=== PATIENT | male | born 1940 | race Caucasian/White ===

== ENCOUNTER 2018-05-28 12:27 | Outpatient (REF) | payer MEDICARE, SELFPAY ==
--- NOTE | 2018-05-28 10:00 | SKI_PTH ---
PATIENT: Star Schumacher V LOC: [facility] U#:[id number] AGE/SX: 77/M ROOM: RE05/28/[address]: Clarissa Luther : 1940 BED: DIS: 05/28/2018 SPEC #: [id number] RECD: 05/29/18 12:40 STATUS: RHIANNON REHank #: [id number] JEANETTE: 05/28/18 10:[address]: Clarissa Luther DEPT: Surgical Specimen RECD BY: Sade Calderon Tissues: 1 - SKIN BIOPSY(SHAVE/PUNCH) Procedures: SKIN LEVEL 4 Comments: [id number]
== END 2018-05-28 12:47 ==
LOC: NCHCN 12:27
PROVIDERS: PCP Family Medicine; Visit Provider Family Medicine
DX: D22.5 Melanocytic nevi of trunk (principal)
CPT/HCPCS: 88305

== ENCOUNTER 2019-05-13 11:45 | Outpatient (REF) | payer MEDICARE, SELFPAY ==
[2019-05-13 22:20] LABS: Anion Gap 9.1 mmol/L (3-11); BUN 38 mg/dL (7-18); CO2 27.9 mmol/L (21.0-32.0); CREATININE 1.82 mg/dL (0.70-1.30); Calcium 9.1 mg/dL (8.5-10.1); Calculated LDL 83 mg/dL; Chloride 107 mmol/L (98-107); Cholesterol 163 mg/dL (<200); Glucose 82 mg/dL (74-106); HDL Cholesterol 67 mg/dL (40-60); Potassium 4.6 mmol/L (3.5-5.1); Sodium 144 mmol/L (136-145); TSH (W/Ref FT4) 1.98 uIU/mL (0.36-3.74); Triglyceride 66 mg/dL (<150)
== END 2019-05-13 12:05 ==
LOC: NCHCN 11:45
PROVIDERS: PCP Family Medicine; Visit Provider Family Medicine
DX: I10 Essential (primary) hypertension (principal); N18.9 Chronic kidney disease, unspecified
CPT/HCPCS: 80048; 80061; 84443

== ENCOUNTER 2020-02-09 18:10 | Outpatient (REF) | payer MEDICARE, SELFPAY ==
[2020-02-09 22:34] LABS: BUN 31 mg/dL (7-18); CREATININE 1.82 mg/dL (0.70-1.30)
[2020-02-10 18:09] LABS: PSA, Screening 1.7 ng/mL (0.0-6.5)
== END 2020-02-09 18:30 ==
LOC: NCHCN 18:10
PROVIDERS: PCP Family Medicine; Visit Provider Family Medicine
DX: N28.89 Other specified disorders of kidney and ureter (principal); N21.8 Other lower urinary tract calculus; N18.9 Chronic kidney disease, unspecified; Z12.5 Encounter for screening for malignant neoplasm of prostate
CPT/HCPCS: 84153; 84520; 82565

== ENCOUNTER 2022-03-15 15:43 | Outpatient (REF) | payer MEDICARE, SELFPAY ==
[2022-03-15 20:55] LABS: HCT 42.2 % (40.0-50.0); HGB 14.2 g/dL (13.5-17.5); MCH 29.4 pg (27.0-33.0); MCHC 33.6 % (32.0-36.0); MCV 87 fL (80-95); MPV 10.4 fL (8.0-11.0); Platelet Count 218 10^3/uL (130-400); RBC 4.83 10^6/uL (4.36-5.78); RDW 14.3 % (11.8-14.1); RDW-SD 45.6 fL; WBC 5.88 10^3/uL (4.4-10.8)
[2022-03-15 21:14] LABS: COMMENT (LAB VIEW ONLY) 128.97 mg/dL; Microalb ug/mg Crea 11.3 ug/mg Cr
[2022-03-15 21:16] LABS: Anion Gap 6.6 mmol/L (3-11); BUN 36 mg/dL (7-18); CO2 28.4 mmol/L (21.0-32.0); CREATININE 1.9 mg/dL (0.70-1.30); Calcium 8.8 mg/dL (8.5-10.1); Chloride 107 mmol/L (98-107); Estimated GFR 35.44 (mL/min/1.73m2); Glucose 101 mg/dL (74-106); Potassium 4.9 mmol/L (3.5-5.1); Sodium 142 mmol/L (136-145)
== END 2022-03-15 15:44 | disposition home or self-care (01) ==
LOC: NCHCN 15:43
PROVIDERS: PCP Family Medicine; Visit Provider Family Medicine
DX: Z00.8 Encounter for other general examination (principal); I12.9 Hypertensive chronic kidney disease with stage 1 through stage 4 chronic kidney disease, or unspecified chronic kidney disease; N18.9 Chronic kidney disease, unspecified
CPT/HCPCS: 80048; 85027; 82043; 82570

== ENCOUNTER 2022-06-23 11:12 | Outpatient (REF) | payer MEDICARE, SELFPAY ==
[2022-06-23 22:42] LABS: PSA, Screening 2.9 ng/mL (<=6.5)
== END 2022-06-23 11:13 | disposition home or self-care (01) ==
LOC: NCHCN 11:12
PROVIDERS: PCP Family Medicine; Visit Provider Family Medicine
DX: Z85.46 Personal history of malignant neoplasm of prostate (principal); Z12.5 Encounter for screening for malignant neoplasm of prostate
CPT/HCPCS: 84153

== ENCOUNTER 2023-02-22 16:13 | Outpatient (REF) | payer MEDICARE, SELFPAY ==
[2023-02-23 19:32] LABS: PSA, Diagnostic 4.6 ng/mL (<=6.5)
== END 2023-02-22 16:14 | disposition home or self-care (01) ==
LOC: LBN 16:13
PROVIDERS: PCP Family Medicine; Visit Provider Urology
DX: C61 Malignant neoplasm of prostate (principal)
CPT/HCPCS: 84153

== ENCOUNTER 2023-07-02 13:57 | Outpatient (REF) | payer MEDICARE, SELFPAY ==
[2023-07-02 22:18] LABS: Anion Gap 7.3 mmol/L (3-11); BUN 47 mg/dL (7-18); CO2 28.7 mmol/L (21.0-32.0); CREATININE 2.1 mg/dL (0.70-1.30); Calcium 9.5 mg/dL (8.5-10.1); Chloride 105 mmol/L (98-107); Estimated GFR 31.23 (mL/min/1.73m2); Glucose 82 mg/dL (74-106); Sodium 141 mmol/L (136-145)
[2023-07-02 22:33] LABS: COMMENT (LAB VIEW ONLY) 63.25 mg/dL; Microalb ug/mg Crea 12.8 ug/mg Cr
== END 2023-07-02 13:58 | disposition home or self-care (01) ==
LOC: NCHCN 13:57
PROVIDERS: PCP Family Medicine; Visit Provider Family Medicine
DX: N18.9 Chronic kidney disease, unspecified (principal)
CPT/HCPCS: 80048; 82043; 82570

== ENCOUNTER 2023-11-12 13:08 | Outpatient (REF) | payer MEDICARE, SELFPAY ==
[2023-11-13 23:34] LABS: PSA, Diagnostic 6.1 ng/mL (<=6.5)
== END 2023-11-12 13:09 | disposition home or self-care (01) ==
LOC: LBN 13:08
PROVIDERS: PCP Family Medicine; Visit Provider Urology
DX: C61 Malignant neoplasm of prostate (principal)
CPT/HCPCS: 84153

== ENCOUNTER 2024-03-05 15:18 | Outpatient (REF) | payer MEDICARE, SELFPAY ==
--- OUTSIDE RECORDS SUMMARY | 2024-03-05 15:21 | XMS_ITS ---
Author Organization Unknown Address [address] [place] [address] [phone] Phone Care Team Providers Care Fraud Representative Name Role Phone BERLIN DUY Jyoti Attending Unavailable Social History Type Status Start Date End Date Code Code Syst em Smoking History Former smoker [id number] SNOMED CT Sex Male Hospital Discharge Instructions Should you have any questions prior to discharge, please contact a member of your healthcare team. If you have left the hospital and have any questions, please contact your primary care physician. Reason For Referral No Data Found Allergies and Adverse Reactions Allergy Substance Reaction Severity Start Date Concern Status Co de Code System No Known Allergies Moderate Active Plan of Treatment Exposure 12/28/2020 Symptoms 06/30/2020 Encounters Encounter Diagnosis Start Date Code Code Sys tem Encounter for other specified aftercare 09/06/2021 SNOMED-CT Personal Care Team Section Performer Name Performer Role Active Date Inactive Da te
--- OUTSIDE RECORDS SUMMARY | 2024-03-05 15:21 | XMS_ITS ---
Author Organization Unknown Address [address] [place] [address] [phone] Phone Care Team Providers Care Linux Server Administrator Name Role Phone BERLIN DUY Jyoti Attending Unavailable Social History Type Status Start Date End Date Code Code Syst em Smoking History Former smoker [id number] SNOMED CT Sex Male Hospital Discharge Instructions [...] Sys tem Encounter for other specified aftercare 11/01/2021 SNOMED-CT Personal Care Team Section Performer Name Performer Role Active Date Inactive Da te
--- OUTSIDE RECORDS SUMMARY | 2024-03-05 15:21 | XMS_ITS ---
Author Organization Unknown Address [address] [place] [address] [phone] Phone Care Team Providers Care Staff Occupational Therapist Name Role Phone BERLIN DUY Jyoti Attending Unavailable Social History Type Status Start Date End Date Code Code Syst em Smoking History Former smoker [id number] SNOMED CT Sex Male Hospital Discharge Instructions [...] Sys tem Encounter for other specified aftercare 01/24/2022 SNOMED-CT Personal Care Team Section Performer Name Performer Role Active Date Inactive Da te
--- OUTSIDE RECORDS SUMMARY | 2024-03-05 15:22 | XMS_ITS ---
Author Organization Unknown Address [address] [place] [address] [phone] Phone Care Team Providers Care Pin Chaser Name Role Phone BERLIN DUY Jyoti Attending Unavailable Social History Type Status Start Date End Date Code Code Syst em Smoking History Former smoker [id number] SNOMED CT Sex Male Hospital Discharge Instructions [...] Sys tem Encounter for other specified aftercare 08/22/2022 SNOMED-CT Personal Care Team Section Performer Name Performer Role Active Date Inactive Da te
--- OUTSIDE RECORDS SUMMARY | 2024-03-05 15:22 | XMS_ITS ---
Author Organization Unknown Address [address] [place] [address] [phone] Phone Care Team Providers Care Chicken Boner Name Role Phone BERLIN DUY Jyoti Attending Unavailable Social History Type Status Start Date End Date Code Code Syst em Smoking History Former smoker 9459713 SNOMED CT Sex Male Hospital Discharge Instructions [...] Sys tem Encounter for other specified aftercare 05/23/2022 SNOMED-CT Personal Care Team Section Performer Name Performer Role Active Date Inactive Da te
--- OUTSIDE RECORDS SUMMARY | 2024-03-05 15:22 | XMS_ITS ---
Author Organization Unknown Address [address] [place] [address] [phone] Phone Care Team Providers Care Armhole Baster Hand Name Role Phone BERLIN DUY Jyoti Attending Unavailable Social History Type Status Start Date End Date Code Code Syst em Smoking History Former smoker 1433038 SNOMED CT Sex Male Hospital Discharge Instructions [...] Sys tem Encounter for other specified aftercare 02/20/2023 SNOMED-CT Personal Care Team Section Performer Name Performer Role Active Date Inactive Da te
--- OUTSIDE RECORDS SUMMARY | 2024-03-05 15:22 | XMS_ITS ---
Author Organization Unknown Address [address] [place] [address] [phone] Phone Care Team Providers Care Brake Specialist Name Role Phone BERLIN DUY Jyoti Attending Unavailable Social History Type Status Start Date End Date Code Code Syst em Smoking History Former smoker 1806311 SNOMED CT Sex Male Hospital Discharge Instructions [...] Sys tem Encounter for other specified aftercare 11/21/2022 SNOMED-CT Personal Care Team Section Performer Name Performer Role Active Date Inactive Da te
--- OUTSIDE RECORDS SUMMARY | 2024-03-05 15:23 | XMS_ITS ---
Author Organization Unknown Address [address] [place] [address] [phone] Phone Care Team Providers Care Community Cultural Development Officer Name Role Phone BERLIN DUY Jyoti Attending Unavailable Social History Type Status Start Date End Date Code Code Syst em Smoking History Former smoker 5799758 SNOMED CT Sex Male Hospital Discharge Instructions [...] Sys tem Encounter for other specified aftercare 06/07/2023 SNOMED-CT Personal Care Team Section Performer Name Performer Role Active Date Inactive Da te
--- OUTSIDE RECORDS SUMMARY | 2024-03-05 15:23 | XMS_ITS ---
Author Organization Unknown Address [address] [place] [address] [phone] Phone Care Team Providers Care Baseball Club Manager Name Role Phone BERLIN DUY Jyoti Attending Unavailable Social History Type Status Start Date End Date Code Code Syst em Smoking History Former smoker 7922719 SNOMED CT Sex Male Hospital Discharge Instructions [...] Diagnosis Start Date Code Code Sys tem 09/06/2023 [id number] SNOMED-CT Personal Care Team Section Performer Name Performer Role Active Date Inactive Da te
--- OUTSIDE RECORDS SUMMARY | 2024-03-05 15:23 | XMS_ITS ---
Author Organization Unknown Address [address] [place] [address] [phone] Phone Care Team Providers Care Freight Agent Name Role Phone BERLIN DUY Jyoti Attending Unavailable Social History Type Status Start Date End Date Code Code Syst em Smoking History Former smoker 5678919 SNOMED CT Sex Male Hospital Discharge Instructions [...] Sys tem Encounter for other specified aftercare 02/19/2024 SNOMED-CT Personal Care Team Section Performer Name Performer Role Active Date Inactive Da te
--- OUTSIDE RECORDS SUMMARY | 2024-03-05 15:23 | XMS_ITS ---
Author Organization Unknown Address [address] [place] [address] [phone] Phone Care Team Providers Care Flat Optical Element Maker Name Role Phone BERLIN DUY Jyoti Attending Unavailable Social History Type Status Start Date End Date Code Code Syst em Smoking History Former smoker 5627450 SNOMED CT Sex Male Hospital Discharge Instructions [...] Sys tem Encounter for other specified aftercare 11/29/2023 SNOMED-CT Personal Care Team Section Performer Name Performer Role Active Date Inactive Da te
--- OUTSIDE RECORDS SUMMARY | 2024-03-05 15:24 | XMS_ITS | Encounter Summary ---
Author Organization [facility] Address [address] [place] [address] Care Team Providers Care Vending Machine Repairer Name Role Phone Clarissa Luther MD Primary Care Provider [phone] Reason for Visit * Reason Comments Follow-up Encounter Details Date Type Department Care Team (Late st Contact Info) Description 08/03/2022 11:15 EDT Telemedicine [facility] Urology - [address] [address] Terry Martinez MD [address] [place] [address], [address] [place] [address] Prostate cancer ([facility]) (Primary Dx) Social History Tobacco Use Types Packs/Day Years Used Date Smoking Tobacco: Former Cigarettes 1 12 0 01/08/1963 - 01/08/1975 Smokeless Tobacco: Never Alcohol Use Standard Drinks/Week Comments Yes 0 (1 standard drink = 0.6 oz pur e alcohol) 2 Interpersonal Safety Answer Date Record ed Physically Hurt Never 12/07/2019 Verbally Threaten Not on file 12/07/2019 Sex and Gender Information Value Date Recorded Sex Assigned at Not on file Gender Identity Male 04/20/2020 13:39 EST Sexual Orientation Not on file documented as of this encounter Functional Status Functional Status Response Date of Assess ment Because of a physical, menta l, or emotional condition, does this person have difficulty doing errands alone such as visiting a doctor's office or shopping? No 12/18/2019 Cognitive Status Response Date of Assessm ent Because of a physical, menta l, or emotional condition, does this person have serious difficulty concentrating, remembering, or making decisions? No 12/18/2019 documented as of this encounter Progress Notes * Terry Martinez MD - 08/03/2022 1115 EDT Clarissa Luther TELEPHONE ENCOUNTER CC: Prostate cancer - 2007 - brachytherapy monotherapy - intermittent risk - PSA recurrent / right renal mass Mega Last seen 04/2022 HPI: Original w/u renal failure Some heartburn...w/u ongoing 04/2022 - renal U/S - stable right central renal mass 04/2021 - non-contrast CT - stable right renal mass 04/2020 - MR abdo - right Bosniak 4 renal cyst - 2.8 cm solid component smaller - stable /// anxiety 11/2019 - CT abdo - 3.3 cm very central right renal mass associated with very very large renal cyst / left LP Bosniak 2F cyst Min lower urinary tract symptoms (LUTS) - no I Q of L No BPH meds Nocturia x 2 Prior PVR = 0 cc's / last = 947 cc's PSA = 2.9 / last = 3.4 / prior = 2.6 / prior = 2.7 / 2.1 / 1.7 / 0.2 - 11/2011 Creatinine = 2.0 - stable No new bone pains No gross hematuria No constitutional Longstanding ED - failed PDE5's - not S/A No other complaints ROS: ten systems reviewed - no active complaints o/w - all negative PMHx / FHx / social: nonsm / no FHx M / 0 + 6 mikal HTN asthma P/E: GEN:ao x 3 LUNGS: nl eff ABDOMEN: soft No nodes No edema IMP: Prostate cancer - prior BETH to 2011 - now PSA recurrent - stable / minimal Prior history urinary retention Stable small right central mass Stable LUTS - nocturia Stable CKD Stable ED - not S/A PLAN: PSA in 6 months - televisit after - again possible bone scan in F/U Next renal U/S after 04/2023 Prior discussion regarding anatomy and complexity - risk of right radical nephrectomy very possible- in light of CKD - active surveillance again favored This visit was conducted by telephone. I spent a total of 7 minutes in discussion with the patient as described in the progress note. The concept of ???Telemedicine?? has been described to the patient.? Patient has been informed of the anticipated benefits and possible risks.? Patient understands the information provided regardingtelemedicine, has had the opportunity to ask questions about this information, and all questions have been answered to patient???s satisfaction. Patient consents for the use of telemedicine in his/her medical care and authorizes the transmission of any relevant medical information to providers and their staff involved in patient???s medical or mental health care. Patient understands that they maybe responsible for copays, deductible or coinsurance for this service. documented in this encounter Plan of Treatment Upcoming Encounters Date Type Department Care Team (Late st Contact Info) Description 03/24/2024 9:30 EST Appointment [facility] Endoscopy [address] [place] [address] Eleazar Ladd MD [address] [place] [address] [address] [place] [phone] 06/11/2024 11:30 EST Ancillary Procedure [facility] [id number] 06/11/2024 12:00 EST Office Visit [address] [address] Terry Martinez MD [address] [facility], [address] [place] [phone] documented as of this encounter Visit Diagnoses Diagnosis Prostate cancer (HCC-CMS)- Primary Malignant neoplasm of prostate documented in this encounter Care Teams Vending Machine Repairer Relationship Specialty Start Date End Date Clarissa Luther MD [address] [place] [phone] PCP - General 08/27/08 documented as of this encounter
--- OUTSIDE RECORDS SUMMARY | 2024-03-05 15:24 | XMS_ITS | Encounter Summary ---
Author Organization [facility] Address [address] [place] [address] Care Team Providers Care Motorcycle Racer Name Role Phone Clarissa Luther MD Primary Care Provider [phone] Reason for Visit * Reason Onset Date Comments Appointment Related 08/03/2022 Encounter Details Date Type Department Care Team (Late st Contact Info) Description 08/03/2022 Telephone [facility] Urology - [address] [address] Terry Martinez MD [address] [place] [address], [address] [place] [phone] Appointment Related Social History Tobacco Use Types Packs/Day Years [...] No 12/18/2019 documented as of this encounter Miscellaneous Notes * Telephone Encounter - Fatuma Urias - 08/03/2022 1620 EDT Spoke with pt's , scheduled 6 mo PSA and advised that telemedicine phone calls are not going lenin an option moving forward so this visit is scheduled in person. Aware to have PSA drawn at PCP office at least 1 week prior. Orders faxed. documented in this encounter Plan of Treatment Upcoming Encounters Date Type Department Care Team (Late st Contact Info) Description 03/24/2024 9:30 EST Appointment [facility] Endoscopy [address] [place], [place] [address] Eleazar Ladd MD [address] [place] [address] [address] [place] [phone] 06/11/2024 11:30 EST Ancillary Procedure [facility] [phone] 06/11/2024 12:00 EST Office Visit [address] [phone] Terry Martinez MD [address] [facility], [address] [place] [phone] documented as of this encounter Visit Diagnoses Not on filedocumented in this encounter Care Teams Motorcycle Racer Relationship Specialty Start Date End Date Clarissa Luther MD [address] [place] [phone] PCP - General 08/27/08 documented as of this encounter
--- OUTSIDE RECORDS SUMMARY | 2024-03-05 15:24 | XMS_ITS | Encounter Summary ---
Author Organization [facility] Address [address] [place] [address] Care Team Providers Care Wood Model Builder Name Role Phone Clarissa Luther MD Primary Care Provider [phone] Reason for Referral * Laboratory Services (Routine/Next Available) - New Request Specialty Diagnoses / Procedures Referred By Contivet t Referred To Contact Diagnoses Malignant neoplasm of prostate (HCC-CMS) Procedures PSA TOTAL, DIAGNOSTIC Terry Martinez MD [address] [place] [phone] Referral ID Status Reason Start Date Expiration Date V isits Requested Visits Authorized [id number] New Request 12/03/2023 1 1 * Laboratory Services (Routine/Next Available) - New Request Specialty Diagnoses / Procedures Referred By Contivet lanza Referred To Contact Diagnoses Malignant neoplasm of prostate (HCC-CMS) Procedures COMPREHENSIVE METABOLIC PANEL (CMP) Terry Martinez MD [address] [place] [phone] Referral ID Status Reason Start Date Expiration Date V isits Requested Visits Authorized [id number] New Request 12/03/2023 1 1 Encounter Details Date Type Department Care Team (Late st Contact Info) Description 12/03/2023 Orders Only [facility] Urology - [address] [address] Terry Martinez MD [address] [place] [phone] Malignant neoplasm of prostate (HCC-CMS) (Primary Dx) Social History Tobacco Use Types [...] No 12/18/2019 documented as of this encounter Plan of Treatment Upcoming Encounters Date Type Department Care Team (Late st Contact Info) Description 03/24/2024 9:30 EST Appointment [facility] Endoscopy [address] [place] [address] Eleazar Ladd MD [facility] [address] [place] [phone] 06/11/2024 11:30 EST Ancillary Procedure [facility] Urology [address] [phone] 06/11/2024 12:00 EST Office Visit [facility] Urology [address] [address] Terry Martinez MD [address] [place] [phone] Scheduled Orders Name Type Priority Associated Diagnoses Orde r Schedule COMPREHENSIVE METABOLIC PANEL (CMP) Lab Routine Malignant neoplasm of prostate (HCC-CMS) Expected: 12/04/2023 (Approximate), Expires: 06/04/2024 PSA TOTAL, DIAGNOSTIC Lab Routine Malignant neoplasm of prostate (HCC-CMS) Expected: 06/04/2024 (Approximate), Expires: 12/02/2024 documented as of this encounter Visit Diagnoses Diagnosis Malignant neoplasm of prostate (HCC-CMS)- Primary Malignant neoplasm of prostate documented in this encounter Care Teams Wood Model Builder Relationship Specialty Start Date End Date Clarissa Luther MD [address] [place] [phone] PCP - General 08/27/08 documented as of this encounter
--- OUTSIDE RECORDS SUMMARY | 2024-03-05 15:24 | XMS_ITS | Encounter Summary ---
Author Organization [facility] Address [address] [place] [address] Care Team Providers Care Personal Financial Representative Name Role Phone Clarissa Luther MD Primary Care Provider Reason for Visit * Reason Onset Date Comments Appointment Related 03/05/2023 Encounter Details Date Type Department Care Team (Late st Contact Info) Description 03/05/2023 Telephone [facility] Urology - [address] [address] Terry Martinez MD [address] [place] [address], [address] [place] [phone] Appointment Related Social History Tobacco Use Types [...] encounter Miscellaneous Notes * Telephone Encounter - Diandra Alvaradon - 04/27/2023 1621 EST Spoke to patient and rescheduoled appt with Dr Martinez. * Telephone Encounter - Aminta Shelley - 03/05/2023 0850 EDT Pt calling to cancel/reschedule appt w/ Dr Martinez today due to being in the hospital. Please call pt after tomorrow, do not call today. documented in this encounter Plan of Treatment Upcoming Encounters Date Type Department Care Team (Late st Contact Info) Description 03/24/2024 9:[address] [facility] Endoscopy [address] [place] [address] Eleazar Ladd MD [address] [place] [address] [address] [place] [phone] 06/11/2024 11:30 EST Ancillary Procedure [facility] [address] [phone] 06/11/2024 12:00 EST Office Visit [address] [phone] Terry Martinez MD [address] [place] [address], [address] [place] [phone] documented as of this encounter Visit Diagnoses Not on filedocumented in this encounter Care Teams Personal Financial Representative Relationship Specialty Start Date End Date Clarissa Luther MD [address] [place] [phone] PCP - General 08/27/08 documented as of this encounter
--- OUTSIDE RECORDS SUMMARY | 2024-03-05 15:24 | XMS_ITS | Referral Summary ---
Author Organization [facility] Address [address] [place] [address] Care Team Providers Care Machine Oiler Name Role Phone Clarissa Luther MD Primary Care Provider [phone] Allergies No known active allergies Medications Medication Sig Dispensed Refills Start Date End Date Status albuterol 90 mcg/actuation inhaler Inhale 2 Puffs as directed every 4 hours as needed for Wheezing. Active beclomethasone (QVAR) 40 mcg/actuation inhaler Inhale 1 Puff as directed 2 times daily. Active amLODIPine (NORVASC) 2.5 mg tablet Take 2.5 mg by mouth daily. Active gabapentin (NEURONTIN) 300 mg capsule Take 300 mg by mouth 3 times daily as needed. Active Active Problems Patient Care Coordination No te Formatting of this note migh t be different from the original. No secondary coverage per Casey Hernandez 04/20/2020 11:58 Problem Noted Date Diagnosed Date Malignant tumor of prostate ([facility]) 07/01/2012 Deviated nasal septum 01/09/2012 Snoring 01/09/2012 Social History Tobacco Use Types Packs/Day Years Used Date Smoking Tobacco: Former Cigarettes 1 12 0 01/08/1963 - 01/08/1975 Smokeless Tobacco: Never Tobacco Cessation:Counseling Given: Not Answered Alcohol Use Standard Drinks/Week Comments Yes 0 (1 standard drink = 0.6 oz pur e alcohol) 2 Interpersonal Safety Answer Date Record ed Physically Hurt Never 12/07/2019 Verbally Threaten Not on file 12/07/2019 Sex and Gender Information Value Date Recorded Sex Assigned at Not on file Gender Identity Male 04/20/2020 13:39 EST Sexual Orientation Not on file Last Filed Vital Signs Vital Sign Reading Time Taken Comments Blood Pressure 144/67 12/05/2019 0852 EDT Pulse 69 12/05/2019 0852 EDT Temperature - - Respiratory Rate - - Oxygen Saturation - - Inhaled Oxygen Concentration - - Weight 82.5 kg (181 lb 14.4 oz) 12/05/2019 0852 EDT Height 180.3 cm (5' 11) 12/05/2019 0852 EDT Body Mass Index 25.37 12/05/2019 0852 EDT Functional Status Functional Status Response Date of [...] concentrating, remembering, or making decisions? No 12/18/2019 Plan of Treatment Upcoming Encounters Date Type Department Care Team (Late st Contact Info) Description 03/24/2024 9:30 EST Appointment [facility] Endoscopy [address] [place] [address] Eleazar Ladd MD [address] [place] [address] [address] [place] [phone] 06/11/2024 11:30 EST Ancillary Procedure [facility] [address] [phone] 06/11/2024 12:00 EST Office Visit [facility] [address] [phone] Terry Martinez MD [address] [place] [address], [address] [place] [phone] Star Schumacher V Personal/Family Self 1940 [address] [facility] [place] [address] Star Schumacher V Personal/Family Self 1940 [address] [facility] [place] [address] Schumacher, Star V Personal/Family Self 1940 [address] [facility] [place] [address] Star Schumacher V Personal/Family Self 1940 [address] [facility] [place] [address] Care Teams Machine Oiler Relationship Specialty Start Date End Date Clarissa Luther MD [address] [place] [phone] PCP - General 08/27/08
--- OUTSIDE RECORDS SUMMARY | 2024-03-05 15:24 | XMS_ITS | Encounter Summary ---
Author Organization [facility] Address [address] [place] [address] Care Team Providers Care Manager Media Name Role Phone Clarissa Luther MD Primary Care Provider [phone] Encounter Details Date Type Department Care Team (Late st Contact Info) Description 04/04/2022 9:45 EST Phlebotomy Only [facility] 2 Phlebotomy [address], [place] [address] Tea Taster, [facility] Phlebotomy Prostate cancer ([facility]) Social History Tobacco Use Types Packs/Day Years [...] Contact Info) Description 03/24/2024 9:30 EST Appointment [facility] Endoscopy [address] [place] [address] Eleazar Ladd MD [address] [place] [address] [address] [place] [address] 06/11/2024 11:30 EST Ancillary Procedure [facility] [phone] 06/11/2024 12:00 EST Office Visit [address] [phone] Terry Martinez MD [address] [place] [address], [address] [place] [address] documented as of this encounter Procedures Procedure Name Priority Date/Time Associated Diagnosis Comments PSA TOTAL, DIAGNOSTIC Today 04/04/2022 10:12 EST Prostate cancer ([facility]) documented in this encounter Results * PSA TOTAL, DIAGNOSTIC (04/04/2022 10:12 EST) PSA 3.4 <=6.5 ng/mL 04/04/2022 12:15 EST [facility] Blood VENOUS BLOOD / Unknown Venipuncture / Unknown 04/04/2022 10:12 EST 04/04/2022 11:02 EST Narrative [facility] - 04/04/2022 12:15 EST NOTE: Serum PSA concentration should not be interpreted as absolute evidence for the presence or absence of malignant disease. Assayed on Siemens ADVIA Centaur XPT using chemiluminescent technology.??Values obtained by using different assay methods cannot be used interchangeably. Terry Martinez MD CHEMISTRY & BLOOD GAS ORDERABLES [facility] [address] [place] [address] documented in this encounter Visit Diagnoses Diagnosis Prostate cancer (HCC-CMS) Malignant neoplasm of prostate documented in this encounter Care Teams Manager Media Relationship Specialty Start Date End Date Clarissa Luther MD [address] [place] [address] PCP - General 08/27/08 documented as of this encounter
--- OUTSIDE RECORDS SUMMARY | 2024-03-05 15:24 | XMS_ITS | Encounter Summary ---
Author Organization [facility] Address [address] [place] [address] Care Team Providers Care Draw String Knotter Name Role Phone Clarissa Luther MD Primary Care Provider [phone] Encounter Details Date Type Department Care Team (Late st Contact Info) Description 04/10/2022 Orders Only [facility] Urology - [address] [phone] Terry Martinez MD [address] [place] [address], [address] [place] [address] Malignant neoplasm of prostate (HCC-CMS) (Primary Dx) [...] Contact Info) Description 03/24/2024 9:30 EST Appointment [facility] Endoscopy [address] [place] [address] Eleazar Ladd MD [address] [place] [address] [address] [place] [phone] 06/11/2024 11:30 EST Ancillary Procedure [facility] Urolog[address] [id number] 06/11/2024 12:00 EST Office Visit [address] [phone] Terry Martinez MD [address] [place] [address], [address] [place] [address] documented as of this encounter Visit Diagnoses Diagnosis Malignant neoplasm of prostate (HCC-CMS)- Primary Malignant neoplasm of prostate documented in this encounter Care Teams Draw String Knotter Relationship Specialty Start Date End Date Clarissa Luther MD [address] [place] [phone] PCP - General 08/27/08 documented as of this encounter
--- OUTSIDE RECORDS SUMMARY | 2024-03-05 15:24 | XMS_ITS | Encounter Summary ---
Author Organization [facility] Address [address] [place] [address] Care Team Providers Care Leather Lacer Name Role Phone Clarissa Luther MD Primary Care Provider [phone] Reason for Visit * Reason Comments Follow-up 6 month f/u ROSANNA / PS A* Encounter Details Date Type Department Care Team (Late st Contact Info) Description 12/03/2023 12:00 EDT Office Visit [facility] Urology - [address] [address] Terry Martinez MD 111 [facility], [address] [place] [address] Prostate cancer ([facility]) (Primary Dx) Social History Tobacco Use [...] Progress Notes * Terry Martinez MD - 12/03/2023 1200 EDT Clarissa Luther (LAST TELEPHONE ENCOUNTER - 07/2022) IN-PERSON TODAY CC: Prostate cancer - 2007 - brachytherapy monotherapy - intermittent risk - PSA recurrent / right cystic renal mass Mega Last visit 05/2023 - portions of this note copied from my prior encounter - both updated and reviewed HPI: Original w/u renal failure Some decline ADL's - n interest in risk of HD 11/2023 - renal U/S - slight increase solid component to 3.8 cm 04/2022 - renal U/S - stable right [...] / last = 947 cc's PSA = 6.1 / last = 4.6 / prior = 2.9 / 3.4 / 2.6 / 2.7 / 2.1 / 1.7 / 0.2 - 11/2011 Creatinine = 2.0 - stable No new bone pains No gross hematuria No constitutional Longstanding ED - failed PDE5's - not S/A No other complaints ROS: ten systems reviewed - no active complaints o/w - all negative PMHx / FHx / social: M (diverticulosis) / 0 + 6 cook nonsm / no FHx HTN asthma P/E: GEN:ao x 3 LUNGS: nl eff ABDOMEN: soft No nodes No edema IMP: Prostate cancer - prior BETH to 2011 - now PSA recurrent - again progressive rise in PSA Slight increase small right central mass Prior history urinary retention Stable LUTS - nocturia Prior stable CKD Stable ED - not S/A PLAN: CMP / PSA / renal U/S in 6 months Likely bone scan in F/U Discussion regarding anatomy and complexity - risk of right radical nephrectomy very possible - in light of CKD - active surveillance again favored * Terry Martinez MD - 12/03/2023 1200 EDT INDICATIONS: Renal mass - therefore, upper tract workup was warranted. FINDINGS: Using a 3.5 MHz probe, the kidneys were scanned throughout their transverse and longitudinal axes. Real-time scanning failed to demonstrate any abnormalities of the renal sinus fat or parenchymal echogenicity. No uretero or hydronephrosis were seen. The right kidney measured 11.5 cm - 20 cm MP/2.9 cm UP cyst - 3.8 solid component from 3.2 cm, and the left 11.0 cm. IMPRESSION: Normal left kidney / slight increase right central cystic renal mass. documented in this encounter Plan of Treatment Upcoming Encounters Date Type Department Care Team (Late st Contact Info) Description 03/24/2024 9:30 EST Appointment [facility] Endoscopy [address] [place] [address] Eleazar Ladd MD [facility] [address] [place] [phone] 06/11/2024 11:30 EST Ancillary Procedure [facility] Urology [address] [address] 06/11/2024 12:00 EST Office Visit [facility] [phone] Terry Martinez MD [address] [place] [address], [address] [place] [phone] Scheduled Orders Name Type Priority Associated Diagnoses Orde r Schedule COMPREHENSIVE METABOLIC PANEL (CMP) Lab Routine Prostate cancer (HCC-CMS) Expected: 06/04/2024 (Approximate), Expires: 01/06/2025 PSA TOTAL, DIAGNOSTIC Lab Routine Prostate cancer ([facility]) Expected: 06/04/2024 (Approximate), Expires: 12/02/2024 UROLOGY RENAL Imaging Routine Expected : 12/03/2023, Expires: 12/02/2024 documented as of this encounter Visit Diagnoses Diagnosis Prostate cancer ([facility])- Primary Malignant neoplasm of prostate documented in this encounter Care Teams Leather Lacer Relationship Specialty Start Date End Date Clarissa Luther MD [address] [place] [address] PCP - General 08/27/08 documented as of this encounter
--- OUTSIDE RECORDS SUMMARY | 2024-03-05 15:24 | XMS_ITS | Encounter Summary ---
Author Organization [facility] Address [address] [place] [address] Care Team Providers Care Director Audience Marketing Name Role Phone Clarissa Luther MD Primary Care Provider [phone] Encounter Details Date Type Department Care Team (Late st Contact Info) Description 06/23/2022 Lab Requisition [facility] Pathology & Laboratory Medicine - [address] [address]67[address] Outr Resulting Lab, Provider Social History Tobacco Use Types Packs/Day Years [...] Contact Info) Description 03/24/2024 9:30 EST Appointment [facility] Endoscopy [address] [place] [address] Eleazar Ladd MD [facility] [address] [place] [address] 06/11/2024 11:30 EST Ancillary Procedure [facility] Urolog[address] [phone] 06/11/2024 12:00 EST Office Visit [address] [phone] Terry Martinez MD [address] [facility], [address] [place] [address] documented as of this encounter Procedures Procedure Name Priority Date/Time Associated Diagnosis Comments PSA TOTAL, DIAGNOSTIC Routine 06/23/2022 11:10 EST documented in this encounter Results * PSA TOTAL, DIAGNOSTIC (06/23/2022 11:10 EST) PSA 2.9 <=6.5 ng/mL 06/23/2022 22:37 EST [facility] Blood VENOUS BLOOD / Unknown 06/23/2022 11:10 EST 06/23/2022 21:50 EST Narrative [facility] - 06/23/2022 22:37 EST NOTE: Serum PSA concentration should not be interpreted as absolute evidence for the presence or absence of malignant disease. Assayed on Siemens ADVIA Centaur XPT using chemiluminescent technology.??Values obtained by using different assay methods cannot be used interchangeably. Provider Outr Resulting Lab CHEMISTRY & BLOOD GAS ORDERABLES [facility] [address] [place] [address] documented in this encounter Visit Diagnoses Not on filedocumented in this encounter Care Teams Director Audience Marketing Relationship Specialty Start Date End Date Clarissa Luther MD [address] [place] [address] PCP - General 08/27/08 documented as of this encounter
--- OUTSIDE RECORDS SUMMARY | 2024-03-05 15:24 | XMS_ITS | Encounter Summary ---
Author Organization [facility] Address [facility] [place] [address] Care Team Providers Care Choke Setter Name Role Phone Audie Madison MD Primary Care Provider [phone] Encounter Details Date Type Department Care Team (Late st Contact Info) Description 07/13/2007 Orders Only Urology at [facility] [place] [phone] Quinn Burger MD [facility] [place] [address] Social History Tobacco Use Types Packs/Day Years Used Date Smoking Tobacco: Never Assessed Sex and Gender Information Value Date Recorded Sex Assigned at Not on file Gender Identity Not on file Sexual Orientation Not on file documented as of this encounter Plan of Treatment Not on file documented as of this encounter Procedures Procedure Name Priority Date/Time Associated Diagnosis Comments SURGICAL PATHOLOGY REPORT Routine 07/13/2007 10:01 AM EST documented in this encounter Results * Surgical Pathology Report (07/13/2007 10:01 AM EST) Surgical Pathology Report [id number] ? Location: [facility]W The signing pathologist has (i) examined the relevant preparation(s) for the specimen(s) and (ii) rendered or confirmed the diagnosis(es). . ?Pathology Surgical Pathology Final Report Clinical Information Specimen Submitted: CONSULTATION CASE A - 4 slides labeled [id number], collection date 05/27/07. [id number] Report to: Tr Cedeño MD Department of Pathology [facility] [address] [place], [place] ??[address] Gross Description [facility]'s pathology slide(s) are reviewed. ??Refer to Diagnosis and Specimen Submitted for specific case information. For the full text of the [facility] report(s) please refer to Non-DH Documentation Pathology in the Clinical Information System (CIS). Microscopic Description Slides reviewed, microscopic description not recorded. Diagnosis CONSULTATION CASE Extradepartmental number: [id number]; collection date, 05/27/07. A - Right prostatic core needle biopsies: ?Adenocarcinoma, [place] grade 3+3, involving one of the ?core needle biopsies (approximately 5% of the total ?tissue submitted). B - Left prostatic core needle biopsies: ?Adenocarcinoma, [place] grade 3+3, involving one of the ?core needle biopsies (approximately 5% of the total ?tissue submitted). CR-0 07/15/07 JLG 07/15/07 Verified by: ? Rich Owens MD ?Pathologist ?(Electronic Signature) The attending pathologist whose signature appears on this report has reviewed all diagnostic slides and has edited the gross and/or microscopic portion of the report in rendering the final pathologic diagnosis. EUN BUSTILLO 07/13/2007 10:0 1 AM EST Quinn Burger MD PATHOLOGY/CYTOLOGY O RDERABLES EUN BUSTILLO documented in this encounter Visit Diagnoses Not on filedocumented in this encounter Care Teams Choke Setter Relationship Specialty Start Date End Date Audie Madison MD PCP - General 03/29/10 documented as of this encounter
--- OUTSIDE RECORDS SUMMARY | 2024-03-05 15:24 | XMS_ITS | Encounter Summary ---
Author Organization [facility] Address [address] [place] [address] Care Team Providers Care Circuit Board Repair Technician Name Role Phone Clarissa Luther MD Primary Care Provider [phone] Reason for Visit * Reason Onset Date Comments Labs Only 04/03/2022 Encounter Details Date Type Department Care Team (Late st Contact Info) Description 04/03/2022 Telephone [facility] Urology - [address] [address] Terry Martinez MD [address] [place] [address], [address] [place] [phone] Labs Only Social History Tobacco Use Types Packs/Day Years [...] encounter Miscellaneous Notes * Telephone Encounter - Ivet Meade, RN - 04/03/2022 1607 EST Patient has standing PSA q 6 mos order. Advised it was available at the [facility]. He's thinking about coming to [place], [place] this week and will do it then. * Telephone Encounter - Loni Funes - 04/03/2022 1200 EST Patient would like to know what blood work should be done for his 04/10/2022 appointment. Patient would also like to know what location to go to have his labs done. Patient is requesting a call back to further discuss. documented in this encounter Plan of Treatment Upcoming Encounters Date Type Department Care Team (Late st Contact Info) Description 03/24/2024 9:30 EST Appointment [facility] Endoscopy [address] [place] [address] Eleazar Ladd MD [facility] [address] [place] [address] 06/11/2024 11:30 EST Ancillary Procedure [facility] [address]rolog[address] [phone] 06/11/2024 12:00 EST [facility] [address] [place], [place] [phone] Terry Martinez MD 111 [facility], [address] [place] [address] documented as of this encounter Visit Diagnoses Not on filedocumented in this encounter Care Teams Circuit Board Repair Technician Relationship Specialty Start Date End Date Clarissa Luther MD [address] [place] [address] PCP - General 08/27/08 documented as of this encounter
--- OUTSIDE RECORDS SUMMARY | 2024-03-05 15:24 | XMS_ITS | Encounter Summary ---
Author Organization [facility] Address [address] [place] [address] Care Team Providers Care Cnc [place] Lathe Operator Name Role Phone Clarissa Luther MD Primary Care Provider [phone] Encounter Details Date Type Department Care Team (Late st Contact Info) Description 11/13/2023 Lab Requisition [facility] Pathology & Laboratory Medicine - [address] [address] Outr Resulting Lab, Provider Social History Tobacco [...] Contact Info) Description 03/24/2024 9:30 EST Appointment [facility] Endoscopy [address] [place] [address] Eleazar Ladd MD [facility] [address] [place] [address] 06/11/2024 11:30 EST Ancillary Procedure [address] [phone] 06/11/2024 12:00 EST Office Visit [address] [phone] Terry Martinez MD 111 [facility], [address] [place] [address] documented as of this encounter Procedures Procedure Name Priority Date/Time Associated Diagnosis Comments PSA TOTAL, DIAGNOSTIC Routine 11/12/2023 8:05 EDT documented in this encounter Results * PSA TOTAL, DIAGNOSTIC (11/12/2023 8:05 EDT) PSA 6.1 <=6.5 ng/mL 11/13/2023 23:28 EDT [facility] Blood VENOUS BLOOD / Unknown 11/12/2023 8:05 EDT 11/13/2023 21:32 EDT Narrative [facility] - 11/13/2023 23:28 EDT NOTE: Serum PSA concentration should not be interpreted as absolute evidence for the presence or absence of malignant disease. Assayed on Siemens ADVIA Centaur XPT using chemiluminescent technology.??Values obtained by using different assay methods cannot be used interchangeably. Provider Outr Resulting Lab CHEMISTRY & BLOOD GAS ORDERABLES [facility] [address] [place], [place] [phone] documented in this encounter Visit Diagnoses Not on filedocumented in this encounter Care Teams Cnc Wood Lathe Operator Relationship Specialty Start Date End Date Clarissa Luther MD [address] [place] [address] PCP - General 08/27/08 documented as of this encounter
--- OUTSIDE RECORDS SUMMARY | 2024-03-05 15:24 | XMS_ITS | Encounter Summary ---
Author Organization [facility] Address [address] [place] [address] Care Team Providers Care Hr Recruiter Name Role Phone Clarissa Luther MD Primary Care Provider [phone] Reason for Visit * Reason Comments Mass Encounter Details Date Type Department Care Team (Latest Contact Info) Description 12/03/2023 11:30 EDT Ancillary Procedure [facility] Urology - [address] [address] Renal mass (Primary Dx) Social History Tobacco Use Types [...] as of this encounter Progress Notes * Nilton Pulido - 12/03/2023 1130 EDT Renal ultrasound performed 12/03/2023 documented in this encounter Plan of Treatment Upcoming Encounters Date Type Department Care Team (Late st Contact Info) Description 03/24/2024 9:30 EST Appointment [facility] Endoscopy [address] [place] [address] Eleazar Ladd MD [facility] [address] [place] [phone] 06/11/2024 11:30 EST Ancillary Procedure [facility] Urolog[address] [phone] 06/11/2024 12:00 EST Office Visit [address] [address]181 Terry Martinez MD 111 [facility], [address] [place] [phone] documented as of this encounter Visit Diagnoses Diagnosis Renal mass- Primary Unspecified disorder of kidney and ureter documented in this encounter Orders Imaging Orders Without Results Count Last Order ed Date First Ordered Date US UROLOGY RENAL 1 12/03/2023 documented in this encounter Care Teams Hr Recruiter Relationship Specialty Start Date End Date Clarissa Luther MD 4 [facility] [place] [phone] PCP - General 08/27/08 documented as of this encounter
--- OUTSIDE RECORDS SUMMARY | 2024-03-05 15:24 | XMS_ITS | Encounter Summary ---
Author Organization [facility] Address [address] [place] [address] Care Team Providers Care Field Marketing Team Leader Name Role Phone Clarissa Luther MD Primary Care Provider [phone] Reason for Referral * Test (Routine/Next Available) - Authorization Not Required Specialty Diagnoses / Procedures [facility] Referred To Contact Diagnoses Increased sputum production Procedures PULMONARY FUNCTION TESTING Clarissa Luther MD [address] [place] [address] Referral ID Status Reason Start Date Expiration Date Visits Requested Visits Authorized [id number] Authorization Not Required 2 1 1 Encounter Details Date Type Department Care Team (Late st Contact Info) Description 03/16/2022 Orders Only [facility] PFT [address] [place], [place] [phone] Clarissa Luther MD [address] [place] [address] Increased sputum production (Primary Dx) Social History Tobacco Use Types [...] Contact Info) Description 03/24/2024 9:30 EST Appointment [facility] Endoscopy [address] [place] [address] Eleazar Ladd MD [address] [place] [address] [address] [place] [phone] 06/11/2024 11:30 EST Ancillary Procedure [facility] [address] [id number] 06/11/2024 12:00 EST Office Visit [address] [phone] Terry Martinez MD [address] [place] [address], [address] [place] [phone] documented as of this encounter Results * PULMONARY FUNCTION TESTING (03/27/2022 11:23 EST) 03/27/2022 11:2 3 EST Clarissa Luther MD PFT ORDERABLES [facility] PULMONARY FUNCTION TESTING documented in this encounter Visit Diagnoses Diagnosis Increased sputum production- Primary Abnormal sputum documented in this encounter Care Teams Field Marketing Team Leader Relationship Specialty Start Date End Date Clarissa Luther MD 4 [facility] [place] [address] PCP - General 08/27/08 documented as of this encounter
--- OUTSIDE RECORDS SUMMARY | 2024-03-05 15:24 | XMS_ITS | Encounter Summary ---
Author Organization [facility] Address [address] [place] [address] Care Team Providers Care Telemarketing Supervisor Name Role Phone Clarissa Luther MD Primary Care Provider [phone] Encounter Details Date Type Department Care Team (Late st Contact Info) Description 08/21/2023 Documentation Visit [facility] Gastroenterology [address] [place] [address] Eleazar Ladd MD [address] [place] [address] Social History Tobacco Use Types Packs/Day Years [...] as of this encounter Progress Notes * Eleazar Ladd MD - 08/21/2023 1517 EDT GI CONSULT FOLLOW UP NOTE Author: Eleazar Ladd MD PCP: Clarissa Luther Subjective: This is an 82-year-old male who is known to our practice for prior history of colon polyps including tubulovillous adenoma in 2007 and 2012 who is referred to discuss chronic symptoms of reflux. He reports discomfort in his chest which may go up into his neck and even into his jaw and sometimes canbe severe over the last 1 or 2 years. He does note that this seems to occur after meals but also wakes him up at 2 AM. He notices relationship to tomato sauces. He has tried taking antacids with somerelief. He was prescribed famotidine but he has not taken it on a regular basis. He also has a wedge pillow but does not use that daily. He denies dysphagia, hematemesis, melena, and weight loss. He has never had an endoscopy performed. He reports no problems believes he came to be seen today was because his was worried about his history of prostate cancer whether this could represent an extension of that. Past Medical History: Diagnosis Date Asthma Cancer ([facility]) Past Surgical History: Procedure Laterality Date TONSILLECTOMY Current Outpatient Medications on File Prior to Visit Medication Sig Dispense Refill albuterol 90 mcg/actuation inhaler Inhale 2 Puffs as directed every 4 hours as needed for Wheezing. amLODIPine (NORVASC) 2.5 mg tablet Take 2.5 mg by mouth daily. beclomethasone (QVAR) 40 mcg/actuation inhaler Inhale 1 Puff as directed 2 times daily. gabapentin (NEURONTIN) 300 mg capsule Take 300 mg by mouth 3 times daily as needed. (Patient not taking: Reported on 11/18/2020) No current facility-administered medications on file prior to visit. Objective: Weight today is 171, BP 152/66, pulse 49. Gen: NAD. AAOx3, physical exam was not performed today. Labs/Imaging/Procedures: Data reviewed. Pertinent results as follows: None. ASSESSMENT: Star Schumacher is a 82 y.o. male who has had chronic reflux for about 2 years. He denies anyalarm symptoms. Although he has been prescribed an H2 nevaeh, he has not used it on a regular basis. I counseled him regarding treatment of GERD. We discussed lifestyle modification, medical therapy, and surgical therapy. As he does not currently have any alarm symptoms and his symptoms have been only going on for 1 or 2 years, I did not recommend performing upper endoscopy. I did recommend thathe try using the famotidine on a regular basis. He would still also be a candidate for treatment with a PPI if this was not effective. We also had a discussion regarding surveillance of colon polyps.He has had 2 prior tubulovillous adenomas which are considered advanced neoplasia and put him at higher risk for developing recurrent advanced polyps and colon cancer. He is agreeable to having another colonoscopy. More than 50% of this session was spent counseling the patient on these topics face to face. Total time spent was approximately 45 minutes including taking the history, counseling the patient and preparing the report. PLAN: He will try using famotidine once or twice daily. Consider trial of PPI once daily if this is not effective. We will schedule a colonoscopy for surveillance.. Eleazar Ladd MD 08/21/2023 documented in this encounter Plan of Treatment Upcoming Encounters Date Type Department Care Team (Late st Contact Info) Description 03/24/2024 9:30 EST Appointment [facility] Endoscopy [address] [place] [address] Eleazar Ladd MD [address] [place] [address] [address] [place] [phone] 06/11/2024 11:30 EST Ancillary Procedure [facility] Urolog[address] [id number] 06/11/2024 12:00 EST Office Visit [address] [id number] Terry Martinez MD [address] [facility], [address] [place] [phone] documented as of this encounter Visit Diagnoses Not on filedocumented in this encounter Care Teams Telemarketing Supervisor Relationship Specialty Start Date End Date Clarissa Luther MD [address] [place] [address] PCP - General 08/27/08 documented as of this encounter
--- OUTSIDE RECORDS SUMMARY | 2024-03-05 15:24 | XMS_ITS | Encounter Summary ---
Author Organization [facility] Address [address] [place] [address] Care Team Providers Care Safety Officer Name Role Phone Clarissa Luther MD Primary Care Provider [phone] Encounter Details Date Type Department Care Team (Late st Contact Info) Description 10/26/2021 9:15 EDT Phlebotomy Only [facility] ED Center 2 Phlebotomy [address] [place], [place] [address] [employer], [facility] Phlebotomy Prostate cancer (HCC-CMS) (HCC) ([facility]) Social History Tobacco Use Types Packs/Day Years [...] Contact Info) Description 03/24/2024 9:30 EST Appointment [facility] Endoscopy [address] [place] [address] Eleazar Ladd MD [facility] [address] [place] [address] 06/11/2024 11:30 EST Ancillary Procedure [facility] Urolog[address] [id number] 06/11/2024 12:00 EST Office Visit [facility] [address] [place], [place] [phone] Terry Martinez MD [address] [facility], [address] [place] [address] documented as of this encounter Procedures Procedure Name Priority Date/Time Associated Diagnosis Comments PSA TOTAL, DIAGNOSTIC Routine 10/26/2021 9:17 EDT Prostate cancer (HCC-CMS) (HCC) (HCC-CMS) documented in this encounter Results * PSA TOTAL, DIAGNOSTIC (10/26/2021 9:17 EDT) PSA 2.6 <=6.5 ng/mL 10/26/2021 12:54 EDT [facility] Blood VENOUS BLOOD / Unknown Venipuncture / Unknown 10/26/2021 9:17 EDT 10/26/2021 9:40 EDT Narrative [facility] - 10/26/2021 12:54 EDT NOTE: Serum PSA concentration should not be interpreted as absolute evidence for the presence or absence of malignant disease. Assayed on Siemens ADVIA Centaur XPT using chemiluminescent technology.??Values obtained by using different assay methods cannot be used interchangeably. Terry Martinez MD CHEMISTRY & BLOOD GAS ORDERABLES [facility] [address] [place] [address] documented in this encounter Visit Diagnoses Diagnosis Prostate cancer (HCC-CMS) Malignant neoplasm of prostate documented in this encounter Care Teams Safety Officer Relationship Specialty Start Date End Date Clarissa Luther MD [address] [place] [phone] PCP - General 08/27/08 documented as of this encounter
--- OUTSIDE RECORDS SUMMARY | 2024-03-05 15:24 | XMS_ITS | Encounter Summary ---
Author Organization [facility] Address [address] [place] [address] Care Team Providers Care Closing Agent Name Role Phone Clarissa Luther MD Primary Care Provider [phone] Reason for Referral * Test (Routine/Next Available) - Authorization Not Required Specialty Diagnoses / Procedures [facility] Referred To Contact Diagnoses Increased sputum production Procedures PULMONARY FUNCTION TESTING Clarissa Luther MD [address] [place] [address] Referral ID Status Reason Start Date Expiration Date Visits Requested Visits Authorized [id number] Authorization Not Required 2 1 1 Reason for Visit * Test (Routine/Next Available) - Authorization Not Required Specialty Diagnoses / Procedures Referred By [facility] Referred To Contact Diagnoses Increased sputum production Procedures PULMONARY FUNCTION TESTING Clarissa Luther MD [address] [place] [address] Referral ID Status Reason Start Date Expiration Date Visits Requested Visits Authorized [id number] Authorization Not Required 2 1 1 Encounter Details Date Type Department Care Team (Latest Contact Info) Description 03/27/2022 10:29 EST - 03/27/2022 23:59 EST Hospital Encounter [facility] PFT [address] [place], [place] [address] Pul Lab, [facility]ft [facility] Rt Increased sputum production Discharge Disposition: Home or Self Care Social History Tobacco Use Types Packs/Day Years [...] No 12/18/2019 documented as of this encounter Medications at Time of Discharge Medication Sig Dispensed Refills Start Date End Date albuterol 90 mcg/actuation inhaler Inhale 2 Puffs as directed every 4 hours as needed for Wheezing. amLODIPine (NORVASC) 2.5 mg tablet Take 2.5 mg by mouth daily. beclomethasone (QVAR) 40 mcg/actuation inhaler Inhale 1 Puff as directed 2 times daily. gabapentin (NEURONTIN) 300 mg capsule Take 300 mg by mouth 3 times daily as needed. documented as of this encounter Discharge Disposition Disposition Code Departure Means Destination Home or Self Care documented in this encounter Progress Notes * Verna Roque RT - 03/27/2022 1115 EST Patient attended PFT appointment. Please see PFT report in Procedures after interpretation has beencompleted. documented in this encounter Plan of Treatment Upcoming Encounters Date Type Department Care Team (Late st Contact Info) Description 03/24/2024 9:30 EST Appointment [facility] Endoscopy [address] [place], [place] [address] Eleazar Ladd MD [address] [place] [address] [address] [place] [phone] 06/11/2024 11:30 EST Ancillary Procedure [facility] Urolog[address] [address] 06/11/2024 12:00 EST Office Visit [address] [phone] Terry Martinez MD [address] [place] [address], [address] [place] [address] documented as of this encounter Procedures Procedure Name Priority Date/Time Associated Diagnosis Comments PULMONARY FUNCTION TESTING Routine 03/27/2022 11:23 EST Increased sputum production documented in this encounter Results * PULMONARY FUNCTION TESTING (03/27/2022 11:23 EST) 03/27/2022 11:2 3 EST Clarissa Luther MD PFT ORDERABLES Performing Organization Address [facility]/State/[facility] Co de Phone Number [facility] PULMONARY FUNCTION TESTING documented in this encounter Visit Diagnoses Diagnosis Increased sputum production Abnormal sputum documented in this encounter Care Teams Closing Agent Relationship Specialty Start Date End Date Clarissa Luther MD [address] [place] [phone] PCP - General 08/27/08 documented as of this encounter
--- OUTSIDE RECORDS SUMMARY | 2024-03-05 15:24 | XMS_ITS | Clinical Summary ---
[place] [address] Care Team Providers Care Roll Examiner Name Role Phone Audie Madison MD Primary Care Provider [phone] Allergies No known active allergies Medications Medication Sig Dispensed Refills Start Date End Date Status CIS Free Text Med - Albuterol 08/01/2007 Active ibuprofen (MOTRIN) 400 mg tablet 08/01/2007 Active Social History Tobacco Use Types Packs/Day Years Used Date Smoking Tobacco: Never Assessed Sex and Gender Information Value Date Recorded Sex Assigned at Not on file Gender Identity Not on file Sexual Orientation Not on file Plan of Treatment Health Maintenance Due Date Last Done Comments Tetanus/Diphtheria/Pertussis Vaccines (1 - Tdap) 09/08 Zoster vaccine (1 of 2) 1992 Advance Directive 1997 Pneumoccocal Vaccine: 65+ (1 of 1 - PCV) 09/09/2007 Covid-19 Vaccine ( - season) 2024 Influenza (Flu) vaccine (1 o f 1 - Influenza standard series) 01/06/2024 Care Teams Roll Examiner Relationship Specialty Start Date End Date Audie Madison MD PCP - General 03/29/10
--- OUTSIDE RECORDS SUMMARY | 2024-03-05 15:24 | XMS_ITS | Encounter Summary ---
Author Organization [facility] Address [address] [place] [address] Care Team Providers Care Monument Erector Name Role Phone Clarissa Luther MD Primary Care Provider [phone] Encounter Details Date Type Department Care Team (Late st Contact Info) Description 02/22/2023 Lab Requisition [facility] Pathology & Laboratory Medicine - [address] [id number] Outr Resulting Lab, Provider Social History Tobacco [...] Contact Info) Description 03/24/2024 9:30 EST Appointment [facility] Endoscopy [address] [place] [address] Eleazar Ladd MD [facility] [address] [place] [address] 06/11/2024 11:30 EST Ancillary Procedure [address] [id number] 06/11/2024 12:00 EST Office Visit [address] [phone] Terry Martinez MD [address] [facility], [address] [place] [address] documented as of this encounter Procedures Procedure Name Priority Date/Time Associated Diagnosis Comments PSA TOTAL, DIAGNOSTIC Routine 02/22/2023 15:15 EDT documented in this encounter Results * PSA TOTAL, DIAGNOSTIC (02/22/2023 15:15 EDT) PSA 4.6 <=6.5 ng/mL 02/23/2023 19:27 EDT [facility] Blood VENOUS BLOOD / Unknown 02/22/2023 15:15 EDT 02/23/2023 17:53 EDT Narrative [facility] - 02/23/2023 19:27 EDT NOTE: Serum PSA concentration should not be interpreted as absolute evidence for the presence or absence of malignant disease. Assayed on Siemens ADVIA Centaur XPT using chemiluminescent technology.??Values obtained by using different assay methods cannot be used interchangeably. Provider Outr Resulting Lab CHEMISTRY & BLOOD GAS ORDERABLES [facility] [address] [place] [address] documented in this encounter Visit Diagnoses Not on filedocumented in this encounter Care Teams Monument Erector Relationship Specialty Start Date End Date Clarissa Luther MD [address] [place] [address] PCP - General 08/27/08 documented as of this encounter
--- OUTSIDE RECORDS SUMMARY | 2024-03-05 15:24 | XMS_ITS | Encounter Summary ---
Author Organization [facility] Address [address] [place] [address] Care Team Providers Care Geography Professor Name Role Phone Clarissa Luther MD Primary Care Provider [phone] Reason for Referral * Laboratory Services (Routine/Next Available) - New Request Specialty Diagnoses / [facility] Referred To Contact Diagnoses Prostate cancer ([facility]) Procedures PSA TOTAL, DIAGNOSTIC Terry Martinez MD [address] [place] [phone] Referral ID Status Reason Start Date Expiration Date V isits Requested Visits Authorized [id number] New Request 05/21/2023 1 1 Reason for Visit * Reason Comments Follow-up 6 month f/u PSA* PCP Encounter Details Date Type Department Care Team (Late st Contact Info) Description 05/21/2023 12:00 EST Office Visit [facility] Urology - [address] [address] Terry Martinez MD [address] [place] [phone] Renal mass (Primary Dx); Prostate cancer ([facility]) Social History Tobacco Use Types Packs/Day Years [...] Progress Notes * Terry Martinez MD - 05/21/2023 1200 EST Clarissa Luther (LAST TELEPHONE ENCOUNTER - 07/2022) IN-PERSON TODAY CC: Prostate cancer - 2007 - brachytherapy monotherapy - intermittent risk - PSA recurrent / right renal mass Mega Last seen 07/2022 HPI: Original w/u renal failure Some heartburn - w/u benign - better with yogurt / occasional H2 nevaeh 04/2022 - renal U/S - stable right [...] / last = 947 cc's PSA = 4.6 / last = 2.9 / last = 3.4 / [...] to 2011 - now PSA recurrent - slowly progressive Prior history urinary retention Prior stable small right central mass Stable LUTS - nocturia Stable CKD Stable ED - not S/A PLAN: PSA / renal U/S / me in 6 months Possible bone scan in F/U Prior discussion regarding anatomy and complexity - risk of right radical nephrectomy very possible- in light of CKD - active surveillance again favored documented in this encounter Plan of Treatment Upcoming Encounters Date Type Department Care Team (Late st Contact Info) Description 03/24/2024 9:[address] [facility] Endoscopy [address] [place] [address] Eleazar Ladd MD [address] [place] [address] Loop [address] [place] [phone] 06/11/2024 11:30 EST Ancillary Procedure [facility] Urolog[address] [phone] 06/11/2024 12:00 EST Office Visit [address] [address] Terry Martinez MD [address] [place] [address], [address] [place] [address] Scheduled Orders Name Type Priority Associated Diagnoses Orde r Schedule US UROLOGY RENAL Imaging Routine Expected : 11/19/2023 (Approximate), Expires: 06/21/2024 PSA TOTAL, DIAGNOSTIC Lab Routine Prostate cancer ([facility]) Expected: 11/19/2023 (Approximate), Expires: 05/20/2024 documented as of this encounter Visit Diagnoses Diagnosis Renal mass- Primary Unspecified disorder of kidney and ureter Prostate cancer ([facility]) Malignant neoplasm of prostate documented in this encounter Care Teams Geography Professor Relationship Specialty Start Date End Date Clarissa Luther MD [address] [place] [phone] PCP - General 08/27/08 documented as of this encounter
--- OUTSIDE RECORDS SUMMARY | 2024-03-05 15:24 | XMS_ITS | Clinical Summary ---
Author Organization [facility] Address [address] [place] [address] Care Team Providers Care Superintendent Transmission Name Role Phone Clarissa Luther MD Primary Care Provider [phone] Allergies No known active allergies Medications Medication [...] Date Diagnosed Date Malignant tumor of prostate ([facility]) 07/01/2012 Deviated nasal septum 01/09/2012 Snoring 01/09/2012 Surgical History Surgery Date Site/Laterality Comments TONSILLECTOMY Medical History Medical History Date Comments Asthma Cancer ([facility]) Family History Medical History Relation Comments Heart Failure Mother Relation Status Comments Mother Social History Tobacco Use Types Packs/Day Years [...] 13:39 EST Sexual Orientation Not on file Obstetrics History Last Filed Vital Signs Vital Sign Reading Time Taken Comments Blood Pressure 144/67 12/05/2019 0852 EDT Pulse 69 12/05/2019 0852 EDT Temperature - - Respiratory Rate - - Oxygen Saturation - - Inhaled Oxygen Concentration - - Weight 82.5 kg (181 lb 14.4 oz) 12/05/2019 0852 EDT Height 180.3 cm (5' 11) 12/05/2019 0852 EDT Body Mass Index 25.37 12/05/2019 0852 EDT Plan of Treatment Upcoming Encounters Date Type Department Care Team (Late st Contact Info) Description 03/24/2024 9:30 EST Appointment [facility] Endoscopy [address] [place] [address] Eleazar Ladd MD [facility] [address] [place] [phone] 06/11/2024 11:30 EST Ancillary Procedure [facility] [address] [id number] 06/11/2024 12:00 EST Office Visit [address] [address] Terry Martinez MD [address] [place] [address], [address] [place] [phone] Health Maintenance Due Date Last Done Comments RSV Immunization ( o r 60+ Years) (1 - 1-dose 60+ series) 2002 Fall Risk Screening 09/09/2007 COVID-19 Vaccine ( season) 2024 Care Teams Superintendent Transmission Relationship Specialty Start Date End Date Clarissa Luther MD [address] [place] [phone] PCP - General 08/27/08
--- OUTSIDE RECORDS SUMMARY | 2024-03-05 15:24 | XMS_ITS | Encounter Summary ---
Author Organization [facility] Address [address] [place] [address] Care Team Providers Care Blanching Machine Operator Name Role Phone Clarissa uLther MD Primary Care Provider [phone] Reason for Visit * Reason Comments Follow-up Encounter Details Date Type Department Care Team (Late st Contact Info) Description 04/10/2022 13:30 EST Office Visit [facility] Urology - [address] [address] Terry Martinez MD [address] [place] [address], [address] [place] [address] Prostate cancer ([facility]) (Primary Dx) Social History Tobacco Use Types [...] Progress Notes * Terry Martinez MD - 04/10/2022 1330 EST INDICATIONS: Renal mass - therefore, upper tract workup was warranted. FINDINGS: Using a 3.5 MHz probe, the kidneys were scanned throughout their transverse and longitudinal axes. Real-time scanning failed to demonstrate any abnormalities of the renal sinus fat or parenchymal echogenicity. No uretero or hydronephrosis were seen. The right kidney measured 13.2 cm - 20 cm MP/2.9 cm UP cyst - 3.2 cm mass, and the left 11.0 cm - 3.0 cm LP cyst. IMPRESSION: Normal left kidney / stable right central renal mass. 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 - PSA recurrent / right renal mass Mega Last seen 04/2021 HPI: Original w/u renal failure 04/2022 - renal U/S - stable right central renal mass 04/2021 - non-contrast CT - stable right renal mass 04/2020: MR abdo - right Bosniak 4 renal [...] / last = 947 cc's PSA = 3.4 / last = 2.6 / prior = 2.7 / 2.1 / 1.7 / 0.2 - 11/2011 Creatinine = 2.0 - stable No new bone pains Longstanding ED - failed PDE5's - not S/A No other complaints ROS: ten systems reviewed - no active complaints o/w - all negative PMHx / FHx / social: nonsm / no FHx M / 0 + 6 cook HTN asthma P/E: GEN:ao x 3 LUNGS: nl eff ABDOMEN: soft No nodes No edema IMP: Prostate cancer - prior BETH to 2011 - further slight increase PSA - PSA recurrent Prior history urinary retention Stable small right central mass Stable LUTS - nocturia Stable CKD Stable ED - not S/A PLAN: PSA in 3 months - televisit after - possible bone scan in F/U Next renal U/S after 04/2023 Prior discussion regarding anatomy and complexity - risk of right radical nephrectomy very possible- in light of CKD - active surveillance again favored documented in this encounter Plan of Treatment Upcoming Encounters Date Type Department Care Team (Late st Contact Info) Description 03/24/2024 9:30 EST Appointment [facility] Endoscopy [address] [place], [place] [phone] Eleazar Ladd MD [facility] [address] [place] [phone] 06/11/2024 11:30 EST Ancillary Procedure [facility] Urolog[address] [id number] 06/11/2024 12:00 EST Office Visit [address] [phone] Terry Martinez MD [address] [place] [address], [address] [place] [phone] documented as of this encounter Visit Diagnoses Diagnosis Prostate cancer ([facility])- Primary Malignant neoplasm of prostate documented in this encounter Care Teams Blanching Machine Operator Relationship Specialty Start Date End Date Clarissa Luther MD [address] [place] [address] PCP - General 08/27/08 documented as of this encounter
--- OUTSIDE RECORDS SUMMARY | 2024-03-05 15:24 | XMS_ITS ---
Author Organization Unknown Address [address] [place] [phone] Phone Care Team Providers Care Bingo Manager Name Role Phone MARGARITO BARCENAS MD Attending Unavailable BERLIN GORDILLO Primary Unavailable [facility] Colle ct Date/Time: 12/28/2020 10:56 [facility] ID: [id number] - [id number] [address] [place] [address], 5661 LOINC: 67228-5 Test Value Unit Reference Range Code Code System Flag SOURCE= Anterior nasal Tier- PRE-OP SARS COV2 RNA: NEGATIVE REFERENCE RAN GE: NEGAT 42952-4 LOINC Social History Type Status Start Date End Date Code Code Syst em Smoking History Former smoker [id number] SNOMED CT Sex Male Hospital Discharge Instructions [...] Diagnosis Start Date Code Code Sys tem Pre-surgery testing 12/28/2020 583824698 SNOMED-C T Personal Care Team Section Performer Name Performer Role Active Date Inactive Da te
--- OUTSIDE RECORDS SUMMARY | 2024-03-05 15:24 | XMS_ITS | Encounter Summary ---
Author Organization [facility] Address [address] [place] [address] Care Team Providers Care Business Objects Report Developer Name Role Phone Clarissa Luther MD Primary Care Provider [phone] Reason for Visit * Reason Comments Mass Encounter Details Date Type Department Care Team (Late st Contact Info) Description 04/10/2022 13:00 EST Procedure visit [facility] Urology - [address] [address] Urology, Ultrasound Renal mass (Primary Dx) Social History Tobacco [...] as of this encounter Progress Notes * Paul Pulido - 04/10/2022 1300 EST Renal ultrasound performed 04/10/2022 documented in this encounter Plan of Treatment Upcoming Encounters Date Type Department Care Team (Late st Contact Info) Description 03/24/2024 9:30 EST Appointment [facility] Endoscopy [address] [place] [address] Eleazar Ladd MD [address] [place] [address] [address] [place] [phone] 06/11/2024 11:30 EST Ancillary Procedure [facility] [address] [id number] 06/11/2024 12:00 EST Office Visit [address] [address] Terry Martinez MD 111 [facility], [address] 5 [place] [address] documented as of this encounter Visit Diagnoses Diagnosis Renal mass- Primary Unspecified disorder of kidney and ureter documented in this encounter Care Teams Business Objects Report Developer Relationship Specialty Start Date End Date Clarissa Luther MD [address] [place] [phone] PCP - General 08/27/08 documented as of this encounter
--- OUTSIDE RECORDS SUMMARY | 2024-03-05 15:25 | XMS_ITS | Encounter Summary ---
Author Organization [facility] Address [address] [place] [address] Care Team Providers Care Slip Operator Name Role Phone Clarissa Slade MD Primary Care Provider [phone] Encounter Details Date Type Department Care Team (Late st Contact Info) Description 05/28/2018 Results Only [facility] [phone] Clarissa Slade MD [address] [place] [phone] Social History Tobacco Use Types Packs/Day Years Used Date Smoking Tobacco: Former Cigarettes 1 12 0 01/08/1963 - 01/08/1975 Smokeless Tobacco: Never Alcohol Use Standard Drinks/Week Comments Yes 0 (1 standard drink = 0.6 oz pur e alcohol) 2 Sex and Gender Information Value Date Recorded Sex Assigned at Not on file Gender Identity Male 04/20/2020 13:39 EST Sexual Orientation Not on file documented as of this encounter Plan of Treatment Upcoming Encounters Date Type Department Care Team (Late st Contact Info) Description 03/24/2024 9:30 EST Appointment [facility] Endoscopy [address] [place], [place] [phone] Eleazar Ladd MD [facility] [address] [place] [address] 06/11/2024 11:30 EST Ancillary Procedure [facility] Urolog[address] [id number] 06/11/2024 12:00 EST Office Visit [facility] Urolog[address] [place] [address] Terry Martinez MD 111 [facility], [address] [place] [address] documented as of this encounter Procedures Procedure Name Priority Date/Time Associated Diagnosis Comments SURGICAL PATHOLOGY Routine 05/28/2018 15 :38 EST documented in this encounter Results * SURGICAL PATHOLOGY (05/28/2018 15:38 EST) Pathology Report: SURGICAL PATHOLOGY REPORT Reports generated via electronic interface contain original data; however they are lacking the format of the original report. Caution should be taken when reading/interpret ing unformatted reports. Name: ? ARIAS, FRANCIS Deni ? Accession #: ? [id number] ? : ? 1940 (Age: 77) ??M ? Collect Date: ? 05/28/2018 ? Location: ? [facility] ? Receive Date: ? 05/29/2018 ? Provider: CLARISSA SLADE MD Copy to: ? Final Pathologic Diagnosis: SKIN OF BACK, UPPER MID, SHAVE BIOPSY: - Melanocytic nevus, junctional lentiginous type, with unusual architectural features and mild cytologic atypia. - Nevus does not extend to edges of shave biopsy specimen in the plane of the complete sections examined. Microscopic Description: The epidermis shows mild hyperplasia consisting of thin and clubbed rete ridges. There is a proliferation of melanocytes within the epidermis that consists of rare nests but is predominated by individual cells in a lentiginous pattern. The nests are small and located at the tips of rete ridges. ??The individual melanocytes are generally evenly spaced along the dermal-epidermal junction. The melanocytes are slightly enlarged and have dark nuclei. ??There is abundant melanin pigment within the epidermis, stratum corneum, and dermal melanophages. (Dr. Jeffries)/jds Document reviewed and electronically signed by: DAX JEFFRIES MD Report ??Date: 05/30/2018 12:28 By the signature above, the attending physician certifies that he/she has personally conducted a gross and/or microscopic examination of the described specimens and rendered or confirmed the above diagnosis. Specimen(s) Received: Shave bx upper mid back Clinical History: Atypical nevus Gross Description: ? Received in formalin labelled with proper patient identification (initials F, F) and mid upper back is a shave biopsy of a well demarcated brown macule (1.0 x 0.9 x 0.2 cm). The specimen is inked, trisected and submitted in 1. DELFINO Montes De Oca (ASCP) 05/29/2018 3:50 PM End of Report [facility] 05/28/2018 15:3 8 EST 05/29/2018 15:38 EST Clarissa Slade MD PATHOLOGY ORDERABLES Performing Organization Address City/State/[facility] Co de Phone Number [facility] [address] [place] [address] documented in this encounter Visit Diagnoses Not on filedocumented in this encounter Care Teams Slip Operator Relationship Specialty Start Date End Date Clarissa Slade MD [address] [place] [phone] PCP - General 08/27/08 documented as of this encounter
--- OUTSIDE RECORDS SUMMARY | 2024-03-05 15:25 | XMS_ITS | Encounter Summary ---
Author Organization [facility] Address [address] [place] [address] Care Team Providers Care Engineering Intern Name Role Phone Clarissa Luther MD Primary Care Provider Reason for Referral * Laboratory Services (Routine) - New Request Specialty Diagnoses / Procedures Referred By Contivet t Referred To Contact Diagnoses Chronic kidney disease, stage III (moderate) ([facility]) Procedures URINE CHEMICAL (DIP) & SEDIMENT (MICRO) WITHOUT REFLEX TO CULTURE Tristin Main MD [address] [place] [address], [address] [phone] Referral ID Status Reason Start Date Expiration Date V isits Requested Visits Authorized [id number] New Request 12/01/2019 1 1 Encounter Details Date Type Department Care Team (Late st Contact Info) Description 12/01/2019 Orders Only [facility] Nephrology - [address] [phone] Tristin Main MD [address] [place] [address] [address] [place] [address] Chronic kidney disease, stage III (moderate) ([facility]) (Primary Dx) Social History Tobacco Use Types [...] Contact Info) Description 03/24/2024 9:30 EST Appointment [facility] Endoscopy [address] [place] [address] Eleazar Ladd MD [facility] [address] [place] [address] 06/11/2024 11:30 EST Ancillary Procedure [facility] Urolog[address] [id number] 06/11/2024 12:00 EST Office Visit [address] [phone] Terry Martinez MD [address] [place] [address], [address] [place] [phone] Scheduled Orders Name Type Priority Associated Diagnoses Orde r Schedule URINE CHEMICAL (DIP) & SEDIMENT (MICRO) WITHOUT REFLEX TO CULTURE Lab Routine Chronic Kidney Disease, Stage III (Moderate) ([facility]) Ordered: 12/01/2019 documented as of this encounter Visit Diagnoses Diagnosis Chronic kidney disease, stage III (moderate) ([facility])- Primary Chronic kidney disease, Stage III (moderate) documented in this encounter Care Teams Engineering Intern Relationship Specialty Start Date End Date Clarissa Luther MD [address] [facility] [place] [phone] PCP - General 08/27/08 documented as of this encounter
--- OUTSIDE RECORDS SUMMARY | 2024-03-05 15:25 | XMS_ITS | Encounter Summary ---
Author Organization [facility] Address [address] [place] [address] Care Team Providers Care Research Program Assistant Name Role Phone Clarissa Luther MD Primary Care Provider [phone] Reason for Referral * Laboratory Services (Routine) - New Request Specialty Diagnoses / Procedures Referred By Contivet t Referred To Contact Diagnoses Chronic kidney disease, stage III (moderate) ([facility]) Procedures URINE CHEMICAL (DIP) & SEDIMENT (MICRO) WITHOUT REFLEX TO CULTURE Tristin Del Valle MD [address] [place] [address], [address] [place] [address] Referral ID Status Reason Start Date Expiration Date V isits Requested Visits Authorized [id number] New Request 12/02/2019 1 1 Reason for Visit * Reason Onset Date Comments Appointment Related 12/02/2019 Encounter Details Date Type Department Care Team ([facility] st Contact Info) Description 12/02/2019 Telephone [facility] Nephrology [address] [address] Jessica Boucher RN [address] [place] [address] Appointment Related Social History Tobacco Use Types [...] on file documented as of this encounter Miscellaneous Notes * Telephone Encounter - Jessica Boucher RN - 12/02/2019 1535 EDT Patient will got to [facility] prior to appt with dr del valle for urine and bloodwork * Telephone Encounter - Leonor Worrell - 12/02/2019 1411 EDT Patient called back and I relayed message. He would like to know if he can have labs done at his health center. He is home now and can be reached at home # * Telephone Encounter - Jessica Boucher RN - 12/02/[address] del valle: please confirm appt for 12/05/19 and have labs done prior at [facility] (includes urine) Unable to LM try later documented in this encounter Plan of Treatment Upcoming Encounters Date Type Department Care Team (Late st Contact Info) Description 03/24/2024 9:30 EST Appointment [facility] Endoscopy [address] [place] [address] Eleazar Ladd MD [facility] [address] [place] [phone] 06/11/2024 11:30 EST Ancillary Procedure [facility] Urology [address] [phone] 06/11/2024 12:00 EST Office Visit [facility] [address] [address] Terry Martinez MD 111 [facility], [address] [place] [phone] Scheduled Orders Name Type Priority Associated Diagnoses Orde r Schedule URINE CHEMICAL (DIP) & SEDIMENT (MICRO) WITHOUT REFLEX TO CULTURE Lab Routine Chronic Kidney Disease, Stage III (Moderate) ([facility]) Ordered: 12/02/2019 documented as of this encounter Visit Diagnoses Diagnosis Chronic kidney disease, stage III (moderate) ([facility])- Primary Chronic kidney disease, Stage III (moderate) documented in this encounter Care Teams Research Program Assistant Relationship Specialty Start Date End Date Clarissa Luther MD [address] [place] [phone] PCP - General 08/27/08 documented as of this encounter
--- OUTSIDE RECORDS SUMMARY | 2024-03-05 15:25 | XMS_ITS | Encounter Summary ---
Author Organization [facility] Address [address] [place] [address] Care Team Providers Care Stone And Concrete Washer Name Role Phone Clarissa Luther MD Primary Care Provider [phone] Reason for Visit * Reason Comments New Patient Visit * Consult, Test and Treat (48 Hrs (Urgent)) - Closed Specialty Diagnoses / Procedures Referred By Shane lanza Referred To Contact Urology Diagnoses Other specified disorders of kidney and ureter [facility] Urology [address] [place] [address] Referral ID Status Reason Start Date Expiration Date Visits Re quested Visits Authorized [id number] Closed 1 1 Encounter Details Date Type Department Care Team (Late st Contact Info) Description 12/18/2019 11:30 EDT Office Visit [facility] Urology - [address] [phone] Terry Martinez MD [address] [place] [address], [address] [place] [address] Prostate cancer ([facility]) (Primary Dx); Stage 3 chronic kidney disease ([facility]); Renal mass Social History Tobacco Use Types Packs/Day Years [...] 13:39 EST Sexual Orientation Not on file COVID-19 Exposure Response Date Recorded In the last month, have you been in contact with someone who was confirmed or suspected to have Coronavirus / COVID-19? 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 Last PSA = 0.2 - 11/2011 - followed by Dr. Perkins Longstanding ED - failed PDE5's - not S/A No other complaints ROS: ten systems reviewed - no active complaints o/w - all negative PMHx / FHx / social: nonsm / no FHx M / 0 + 6 Cook HTN asthma P/E: GEN:ao x 3 LUNGS: nl eff ABDOMEN: soft No nodes No edema IMP: Prostate cancer - BETH to 2011 History urinary retention Stable ED - wants to try URI 3.3 cm very central right renal mass associated with very very large renal cyst left LP Bosniak 2F cyst CKD PLAN: PSA in F/U Given anatomy and complexity - risk of right radical nephrectomy very possible - in light of CKD - active surveillance favored F/U MR abdo + F/U me same day in 6 months documented in this encounter Plan of Treatment Upcoming Encounters Date Type Department Care Team (Late st Contact Info) Description 03/24/2024 9:30 EST Appointment [facility] Endoscopy [address] [place] [address] Eleazar Ladd MD [address] [place] [address] [address] [place] [phone] 06/11/2024 11:30 EST Ancillary Procedure [facility] Urolog[address] [phone] 06/11/2024 12:00 EST Office Visit [address] [phone] Terry Martinez MD [address] [place] [address], [address] [place] [phone] documented as of this encounter Visit Diagnoses Diagnosis Prostate cancer ([facility])- Primary Malignant neoplasm of prostate Stage 3 chronic kidney disease ([facility]) Renal mass Unspecified disorder of kidney and ureter documented in this encounter Care Teams Stone And Concrete Washer Relationship Specialty Start Date End Date Clarissa Luther MD [address] [place] [phone] PCP - General 08/27/08 documented as of this encounter
--- OUTSIDE RECORDS SUMMARY | 2024-03-05 15:25 | XMS_ITS | Encounter Summary ---
Author Organization [facility] Address [address] [place] [address] Care Team Providers Care Merchandise Executive Name Role Phone Clarissa Luther MD Primary Care Provider [phone] Encounter Details Date Type Department Care Team (Late st Contact Info) Description 02/10/2020 Lab Requisition [facility] Pathology & Laboratory Medicine - [address] [address] Outr Resulting Lab, Provider Social History Tobacco [...] Appointment [facility] Endoscopy [address] [place] [address] Eleazar Ladd MD [facility] [address] [place] [address] 06/11/2024 11:30 EST Ancillary Procedure [facility] Urolog[address] [phone] 06/11/2024 12:00 EST Office Visit [address] [phone] Terry Martinez MD 111 [facility], [address] [place] [address] documented as of this encounter Procedures Procedure Name Priority Date/Time Associated Diagnosis Comments PSA TOTAL, DIAGNOSTIC Routine 02/09/2020 8:40 EDT documented in this encounter Results * PSA TOTAL, DIAGNOSTIC (02/09/2020 8:40 EDT) PSA 1.7 0.0 - 6.5 ng/mL 02/10/2020 18:04 EDT [facility] Blood VENOUS BLOOD / Unknown 02/09/2020 8:40 EDT 02/10/2020 17:02 EDT Narrative [facility] - 02/10/2020 18:04 EDT NOTE: Serum PSA concentration should not be interpreted as absolute evidence for the presence or absence of malignant disease. Assayed on Siemens ADVIA Centaur XPT using chemiluminescent technology.??Values obtained by using different assay methods cannot be used interchangeably. Provider Outr Resulting Lab CHEMISTRY & BLOOD GAS ORDERABLES [facility] [address] [place] [address] documented in this encounter Visit Diagnoses Not on filedocumented in this encounter Care Teams Merchandise Executive Relationship Specialty Start Date End Date Clarissa Luther MD [address] [place] [address] PCP - General 08/27/08 documented as of this encounter
--- OUTSIDE RECORDS SUMMARY | 2024-03-05 15:25 | XMS_ITS | Encounter Summary ---
Author Organization [facility] Address [address] [place] [address] Care Team Providers Care Senior Analytic Consultant Name Role Phone Clarissa Slade MD Primary Care Provider [phone] Reason for Visit * Reason Comments Follow-up Pt saw Dr. Gregorio rosales 3 weeks ago Encounter Details Date Type Department Care Team (Late st Contact Info) Description 08/01/2012 15:30 EDT Office Visit [facility] Urology - [address] [phone] Terry Martinez MD 111 [facility], [address] 5 [place] [address] Hypertrophy of prostate with urinary obstruction and other lower urinary tract symptoms (LUTS) (Primary Dx); ED (erectile dysfunction); Unspecified retention of urine Social History Tobacco Use Types Packs/Day Years Used Date Smoking Tobacco: Former Cigarettes 1 12 0 01/08/1963 - 01/08/1975 Alcohol Use Standard Drinks/Week Comments Yes 0 (1 standard drink = 0.6 oz pur e alcohol) 2 Sex and Gender Information Value Date Recorded Sex Assigned at Not on file Gender Identity Male 04/20/2020 13:39 EST Sexual Orientation Not on file documented as of this encounter Ordered Prescriptions Prescription Sig Dispensed Refills Start Date End Da te tamsulosin (FLOMAX) 0.4 mg capsule Take 1 Cap by mouth daily. 30 Cap 3 08/01/2012 08/22/2013 documented in this encounter Progress Notes * Terry Martinez MD - 08/01/2012 1541 EDT Chief Complaint: Prostate cancer Reason for Consult: Urology was asked to see Star at the request of CLARISSA SLADE MD for evaluation of brusher. HPI: (include onset, location, quality, severity, duration, timing, associating symptoms) Star is a 71 y.o. male with brusher. Brachytherapy monotherapy - 5 years ago - intermittent risk - bilateral Mod lower urinary tract symptoms (LUTS) - + I Q of L nocturia #1 complaint ED increasing over the years - failed PDE5's - SFX as well Wants to try the vacuum erection device Other options discussed PSA = 0.2 - 11/2011 - followed by Dr. Perkins nonsm / no FHx M / no alexis [facility] Past Medical History Diagnosis Date ??? Asthma ??? Cancer Past Surgical History Procedure Date ??? Tonsillectomy Social History Family History History Substance Use Topics ??? Smoking status: Former Smoker -- 1.0 packs/day for 12 years Quit date: 01/08/1975 ??? Smokeless tobacco: Not on file ??? Alcohol Use: Yes 2 No family history on file. Medications Current outpatient prescriptions:albuterol (ACCUNEB) 1.25 mg/3 mL nebulizer solution, Inhale 1.25 mg as directed every 4 hours as needed., Disp: , Rfl: Allergies No Known Allergies Review of Systems: A ten point review of systems was performed. Pertinent positives are listed below, all others are negative: as above Objective/Physical Exam: Vital Signs: There were no vitals taken for this visit. Exam: General Appearance: alert, cooperative Skin: Skin color, temperature, turgor normal. No rashes or lesions Head: Normocephalic, without obvious abnormality, atraumatic Oropharynx: lips, mucosa, and tongue normal; teeth and gums normal Neck: supple, symmetrical, trachea midline Lungs: non labored breathing Heart: regular rate and rhythm Abdomen: Normal, benign. Bladder: Nonpalpable Kidney: Nonpalpable Hernia: Absent Liver and/or Spleen: No abnormalities Stool Specimen: Not indicated Extremities: extremities warm, atraumatic, no cyanosis or edema positive pulses bilat Musculoskeletal: no joint tenderness, deformity or swelling Neuro: Grossly normal Back: Costovertebral Angle: absent Genitourinary: Anus and Perineum: No abnormalities Scrotum: No abnormalities Vas Deferens: Bilaterally Palpable Epididymides: No abnormalities Testes: No abnormalities Urethral Meatus: No abnormalities Penis: No abnormalities JOSLYN: Neg at JW Lymph Nodes: (groin/lower extremity): negative Data Review: NA Labs: PSA: No results found for this basename: PSA Other Studies: PVR = 947 cc's - cath refused Impression: Retention / ED / BETH prostate cancer Suggestions/Recommendations: brusher F/U - Perkins / start flomax - f/u 10 days - cysto PRN / URI in F/U Thank you for consulting us in the care of Star Schumacher. We will, of course, continue to keep you informed of the patient's urological care and the results of our further evaluation. Terry Martinez MD documented in this encounter Plan of Treatment Upcoming Encounters Date Type Department Care Team (Late st Contact Info) Description 03/24/2024 9:30 EST Appointment [facility] Endoscopy [address] [place] [address] Eleazar Ladd MD [address] [place] [address] [address] [place] [phone] 06/11/2024 11:30 EST Ancillary Procedure [address] [id number] 06/11/2024 12:00 EST Office Visit [address] [phone] Terry Martinez MD [address] [place] [address], [address] [place] [phone] documented as of this encounter Procedures Procedure Name Priority Date/Time Associated Diagnosis Comments UROLOGY BLADDER SCAN Routine 08/12/2012 15:00 EDT Hypertrophy of prostate with urinary obstruction and other lower urinary tract symptoms (LUTS) documented in this encounter Results * UROLOGY BLADDER SCAN (08/12/2012 15:00 EDT) Bladder Scan 0 ml POINT OF CARE Comment:voided 9 oz Urine specimen (specimen) 08/12/2012 15:00 EDT Terry Martinez MD UROLOGY ORDERABLE S POINT OF CARE documented in this encounter Visit Diagnoses Diagnosis Hypertrophy of prostate with urinary obstruction and other lower urinary tract symptoms (LUTS)- Primary ED (erectile dysfunction) Impotence of organic origin Retention of urine, unspecified documented in this encounter Care Teams Senior Analytic Consultant Relationship Specialty Start Date End Date Clarissa Slade MD [address] [place] [phone] PCP - General 08/27/08 documented as of this encounter
--- OUTSIDE RECORDS SUMMARY | 2024-03-05 15:25 | XMS_ITS | Encounter Summary ---
Author Organization [facility] Address [address] [place] [address] Care Team Providers Care Tank House Operator Helper Name Role Phone Clarissa Luther MD Primary Care Provider [phone] Reason for Visit * Reason Onset Date Comments New Patient Visit 07/01/2012 re-estab treat ment Encounter Details Date Type Department Care Team (Late st Contact Info) Description 07/01/2012 Telephone [facility] Urology - [address] [phone] Terry Martinez MD 111 [facility], [address] [place] [address] New Patient Visit (re-estab treatment) Social History Tobacco Use Types Packs/Day Years [...] encounter Miscellaneous Notes * Telephone Encounter - Jyothi Monzon - 07/04/2012 1249 EST Called no answering machine , but have schedule appt and mail an appt card. * Telephone Encounter - Jyothi Monzon - 07/03/2012 1646 EST Called patient three times no answer and no answering machine * Telephone Encounter - Amol Miller - 07/02/2012 1445 EST Patient re-called today @1445. Patient states he was between home and work when called. Please retry. Patient states is a good day to call. * Telephone Encounter - Amol Miller - 07/01/[address] Perkins's office requesting NPV reset on patient. Office states ok to contact pt to schedule documented in this encounter Plan of Treatment Upcoming Encounters Date Type Department Care Team (Late st Contact Info) Description 03/24/2024 9:30 EST Appointment [facility] Endoscopy [address] [place] [address] Eleazar Ladd MD [address] [place] [address] [address] [place] [phone] 06/11/2024 11:30 EST Ancillary Procedure [facility] [id number] 06/11/2024 12:00 EST Office Visit [facility] [id number] Terry Martinez MD [address] [facility], [address] [place] [address] documented as of this encounter Visit Diagnoses Not on filedocumented in this encounter Care Teams Tank House Operator Helper Relationship Specialty Start Date End Date Clarissa Luther MD 4 [facility] [place] [phone] PCP - General 08/27/08 documented as of this encounter
--- OUTSIDE RECORDS SUMMARY | 2024-03-05 15:25 | XMS_ITS | Encounter Summary ---
Author Organization [facility] Address [address] [place] [address] Care Team Providers Care Bulk Gas Specialist Name Role Phone Clarissa Luther MD Primary Care Provider [phone] Reason for Visit * Reason Onset Date Comments Appointment Related 05/31/2020 Encounter Details Date Type Department Care Team ([facility] st Contact Info) Description 05/31/2020 Telephone [facility] Nephrology - [address] [address] Jessica Boucher, RN [address] [place] [address] Appointment Related Social History Tobacco Use Types [...] have Coronavirus / COVID-19? No / Unsure 05/20/2020 10:24 EST documented as of this encounter Functional Status [...] Miscellaneous Notes * Telephone Encounter - Jessica Boucher, RN - 05/31/2020 1239 EST Patient needs to cancel his appt tomorrow with dr del valle. He just saw Dr Martinez, and has a lot goingon right now. He is aware that he needs labs prior to the appt when he reschedules documented in this encounter Plan of Treatment Upcoming Encounters Date Type Department Care Team (Late st Contact Info) Description 03/24/2024 9:30 EST Appointment [facility] Endoscopy [address] [place] [address] Eleazar Ladd MD [address] [place] [address] [address] [place] [phone] 06/11/2024 11:30 EST Ancillary Procedure [facility] [address]rolog[address] [id number] 06/11/2024 12:00 EST Office Visit [facility] Urolog[address] 960481 Terry Martinez MD 111 [facility], [address] [place] [phone] documented as of this encounter Visit Diagnoses Not on filedocumented in this encounter Care Teams Bulk Gas Specialist Relationship Specialty Start Date End Date Clarissa Luther MD [address] [place] [address] PCP - General 08/27/08 documented as of this encounter
--- OUTSIDE RECORDS SUMMARY | 2024-03-05 15:25 | XMS_ITS | Encounter Summary ---
Author Organization [facility] Address [address] [place] [address] Care Team Providers Care Chain Mortiser Operator Name Role Phone Clarissa Luther MD Primary Care Provider [phone] Encounter Details Date Type Department Care Team (Late st Contact Info) Description 11/13/2019 Abstract [facility] Nephrology - [address] [address] Tristin Main MD [address] [place] [address], [address] [place] [address] Social History Tobacco Use Types Packs/Day Years [...] Contact Info) Description 03/24/2024 9:30 EST Appointment [facility] Endoscopy [address] [place], [place] [address] Eleazar Ladd MD [facility] [address] [place] [address] 06/11/2024 11:30 EST Ancillary Procedure [facility] Urology - Main [place] [address] [place] [address] 06/11/2024 12:00 EST Office Visit [facility] Urology - [facility] [address] [place], [place] [phone] Terry Martinez MD 111 [facility], [address] [place] [address] documented as of this encounter Procedures Procedure Name Priority Date/Time Associated Diagnosis Comments TSH Routine 05/13/2019 BASIC METABOLIC PANEL (BMP) Routine 05/13/2019 documented in this encounter Results * TSH (05/13/2019) TSH, External 1.98 EXTERNAL LAB Blood VENOUS BLOOD / Unknown 05/13/2019 Historical Provider CHEMISTRY & BLOOD GAS ORDERABLES EXTERNAL LAB * BASIC METABOLIC PANEL (BMP) (05/13/2019) GFR, Calculated, External 36.40 EXTERNAL LAB Glucose, Serum, External 82 EXTERNAL LAB Calculated Calcium, External EXTERNAL LAB BUN, External 38 EXTERNAL LAB Calcium, External 9.1 EXTERNAL LAB Chloride, External 107 EXTERNAL LAB CO2, External 27.9 EXTERNAL LAB Creatinine, External 1.82 EXTERNAL LAB Fasting?, External EXTERNAL LAB Potassium, External 4.6 EXTERNAL LAB Sodium, External 144 EXTERNAL LAB Blood VENOUS BLOOD / Unknown 05/13/2019 Historical Provider CHEMISTRY & BLOOD GAS ORDERABLES EXTERNAL LAB documented in this encounter Visit Diagnoses Not on filedocumented in this encounter Discontinued Medications Medication Sig Discontinue Reason Start Date End Da te albuterol (ACCUNEB) 1.25 mg/3 mL nebulizer solution Inhale 1.25 mg as directed every 4 hours as needed. Error 11/13/2019 documented as of this encounter Historical Medications * This list may reflect changes made after this encounter. Medication Sig Dispensed Refills Start Date End Date amLODIPine (NORVASC) 2.5 mg tablet Take 2.5 mg by mouth daily. beclomethasone (QVAR) 40 mcg/actuation inhaler Inhale 1 Puff as directed 2 times daily. albuterol 90 mcg/actuation inhaler Inhale 2 Puffs as directed every 4 hours as needed for Wheezing. added in this encounter Care Teams Chain Mortiser Operator Relationship Specialty Start Date End Date Clarissa Luther MD 4 [facility] [place] [address] PCP - General 08/27/08 documented as of this encounter
--- OUTSIDE RECORDS SUMMARY | 2024-03-05 15:25 | XMS_ITS | Encounter Summary ---
Author Organization [facility] Address [address] [place] [address] Care Team Providers Care Unix Architect Name Role Phone Clarissa Luther MD Primary Care Provider [phone] Reason for Visit * (Routine) - Receiving Office to Obtain Authorization Specialty Diagnoses / Procedures Referred By Shane lanza Referred To Contact Procedures US OUTSIDE IMAGES BODY Unknown, Provider, Referral ID Status Reason Start Date Expiration Date Visits Requested Visits Authorized [id number] Receiving Office to Obtain Authorization 11/04/2019 1 1 Encounter Details Date Type Department Care Team (Latest Contact Info) Description 10/28/2019 - 10/28/2019 23:59 EDT Hospital Encounter [facility] Radiology - Main [place] [address] [place] [address] Discharge Disposition: Home or Self Care Social [...] on file documented as of this encounter Medications at Time of Discharge Medication Sig Dispensed Refills Start Date End Date albuterol (ACCUNEB) 1.25 mg/3 mL nebulizer solution Inhale 1.25 mg as directed every 4 hours as needed. 11/13/2019 documented as of this encounter Discharge Disposition Disposition Code Departure Means Destination Home or Self Care documented in this encounter Plan of Treatment Upcoming Encounters Date Type Department Care Team (Late st Contact Info) Description 03/24/2024 9:30 EST Appointment [facility] Endoscopy [address] [place] [address] Eleazar Ladd MD [facility] [address] [place] [phone] 06/11/2024 11:30 EST Ancillary Procedure [facility] [address] [phone] 06/11/2024 12:00 EST Office Visit [facility] Urolog[address] [phone] Terry Martinez MD 111 [facility], [address] [place] [address] documented as of this encounter Procedures Procedure Name Priority Date/Time Associated Diagnosis Comments US OUTSIDE IMAGES BODY Routine 11/04/2019 15:54 EDT documented in this encounter Results * US OUTSIDE IMAGES BODY (11/04/2019 15:54 EDT) Narrative [facility] - 11/04/2019 15:54 EDT This is a non-reportable exam. Provider Unknown MD [facility] OTHER IMAGING OR DERABLES Performing Organization Address City/State/[facility] Co de Phone Number [facility] documented in this encounter Visit Diagnoses Not on filedocumented in this encounter Care Teams Unix Architect Relationship Specialty Start Date End Date Clarissa Luther MD [address] [place] [address] PCP - General 08/27/08 documented as of this encounter
--- OUTSIDE RECORDS SUMMARY | 2024-03-05 15:25 | XMS_ITS | Encounter Summary ---
Author Organization [facility] Address [address] [place] [address] Care Team Providers Care Advertising Statistical Clerk Name Role Phone Clarissa Luther MD Primary Care Provider [phone] Reason for Visit * Reason Comments Follow-up [address] r adanw Encounter Details Date Type Department Care Team (Late st Contact Info) Description 04/14/2021 13:00 EST Office Visit [facility] Urology - [address] [phone] Terry Martinez MD 111 [facility], Level [address] [place] [address] Prostate cancer (HCC-CMS) (HCC) (HCC-CMS) (Primary Dx); Complex renal cyst Social History Tobacco Use Types Packs/Day Years Used Date Smoking Tobacco: Former Cigarettes 1 12 0 01/08/1963 - 01/08/1975 Smokeless Tobacco: Never Tobacco Cessation:Counseling Given: Yes Alcohol Use Standard Drinks/Week Comments Yes 0 [...] Progress Notes * Terry Martinez MD - 04/14/2021 1300 EST 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 Perkins Creatinine = 2.0 / last = 1.7 / prior = 1.8 Longstanding ED - failed PDE5's - not S/A No other complaints ROS: ten systems reviewed - no active complaints o/w - all negative PMHx / FHx / social: nonsm / no FHx M / 0 + 6 Mervin HTN asthma P/E: GEN:ao x 3 LUNGS: nl eff ABDOMEN: soft No nodes No edema IMP: Prostate cancer - prior BETH to 2011 - again slight increase now PSA recurrent Prior history urinary retention Stable - right 2.8 cm small Bosniak 4 Simple left renal cyst - Bosniak 1 Stable CKD Stable ED - not S/A PLAN: F/U PSA q 6 mos / one year me with renal U/S Possible bone scan in F/U PRN Prior discussion regarding anatomy and complexity - risk of right radical nephrectomy very possible- in light of CKD - active surveillance favored documented in this encounter Plan of Treatment Upcoming Encounters Date Type Department Care Team (Late st Contact Info) Description 03/24/2024 9:30 EST Appointment [facility] Endoscopy [address] [place] [address] Eleazar Ladd MD [address] [place] [address] [address] [place] [phone] 06/11/2024 11:30 EST Ancillary Procedure [facility] Urolog[address] [phone] 06/11/2024 12:00 EST Office Visit [address] [address] Terry Martinez MD 111 [facility], [address] [place] [address] documented as of this encounter Results * PSA TOTAL, DIAGNOSTIC (04/04/2022 10:12 EST) PSA 3.4 <=6.5 ng/mL 04/04/2022 12:15 EST [facility] Blood VENOUS BLOOD / Unknown Venipuncture / Unknown 04/04/2022 10:12 EST 04/04/2022 11:02 EST Narrative [facility] - 04/04/2022 12:15 EST NOTE: Serum PSA concentration should not be interpreted as absolute evidence for the presence or absence of malignant disease. Assayed on Siemens ADVIA Centaur XPT using chemiluminescent technology.??Values obtained by using different assay methods cannot be used interchangeably. Terry Martinez MD CHEMISTRY & BLOOD GAS ORDERABLES [facility] [address] [place] [address] * PSA TOTAL, DIAGNOSTIC (10/26/2021 9:17 EDT) PSA 2.6 <=6.5 ng/mL 10/26/2021 12:54 EDT [facility] Blood VENOUS BLOOD / Unknown Venipuncture / Unknown 10/26/2021 9:17 EDT 10/26/2021 9:40 EDT Narrative [facility] - 10/26/2021 12:54 EDT NOTE: Serum PSA concentration should not be interpreted as absolute evidence for the presence or absence of malignant disease. Assayed on Siemens Wear My Tagsaur XPT using chemiluminescent technology.??Values obtained by using different assay methods cannot be used interchangeably. Terry Martinez MD CHEMISTRY & BLOOD GAS ORDERABLES [facility] [address] [place] [address] documented in this encounter Visit Diagnoses Diagnosis Prostate cancer (HCC-CMS)- Primary Malignant neoplasm of prostate Complex renal cyst Other specified congenital cystic kidney disease documented in this encounter Care Teams Advertising Statistical Clerk Relationship Specialty Start Date End Date Clarissa Luther MD [address] [place] [phone] PCP - General 08/27/08 documented as of this encounter
--- OUTSIDE RECORDS SUMMARY | 2024-03-05 15:25 | XMS_ITS | Encounter Summary ---
Author Organization [facility] Address [address] [place] [address] Care Team Providers Care Business Architect Name Role Phone Clarissa Luther MD Primary Care Provider [phone] Encounter Details Date Type Department Care Team (Late st Contact Info) Description 12/19/2019 Orders Only [facility] Radiology - Main [place] [address] [place] [address] Jun Reyes MD [address] [facility] [place] [address] Social History Tobacco Use Types Packs/Day Years [...] Contact Info) Description 03/24/2024 9:30 EST Appointment [facility] Endoscopy [address] [place] [address] Eleazar Ladd MD [address] [place] [address] [address] [place] [address] 06/11/2024 11:30 EST Ancillary Procedure [facility] Urolog[address] [id number] 06/11/2024 12:00 EST Office Visit [address] [phone] Terry Martinez MD 111 [facility], [address] [place] [address] documented as of this encounter Visit Diagnoses Not on filedocumented in this encounter Care Teams Business Architect Relationship Specialty Start Date End Date Clarissa Luther MD [address] [place] [phone] PCP - General 08/27/08 documented as of this encounter
--- OUTSIDE RECORDS SUMMARY | 2024-03-05 15:25 | XMS_ITS | Encounter Summary ---
Author Organization [facility] Address [address] [place] [address] Care Team Providers Care Ux Manager Name Role Phone Clarissa Slade MD Primary Care Provider [phone] Reason for Visit * Reason Comments Urinary Retention Encounter Details Date Type Department Care Team (Late st Contact Info) Description 08/12/2012 14:45 EDT Office Visit [facility] Urology - [address] [id number] Terry Martinez MD [address] [facility], [address] [place] [address] Unspecified retention of urine (Primary Dx) Social History Tobacco Use Types [...] capsule Take 1 Cap by mouth daily. 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 Better Overall better PVR last visit = 947 cc's / today = 0 cc's ED increasing over the years - failed PDE5's - SFX as well Wants to try the vacuum erection device - other options discussed PSA = 0.2 - 11/2011 - followed by Dr. Perkins nonsm / no FHx M / no kids Cook GEN:ao x 3 LUNGS: nl eff ABDOMEN: soft No nodes No edema IMP: improved retention - tolerating flomax ED - wants to try URI PLAN: Continue flomax 0.4 mg F/U Urology PRN F/U Dr. Perkins for academic counselor documented in this encounter Plan of Treatment Upcoming Encounters Date Type Department Care Team (Late st Contact Info) Description 03/24/2024 9:30 EST Appointment [facility] Endoscopy [address] [place] [address] Eleazar Ladd MD [facility] [address] [place] [address] 06/11/2024 11:30 EST Ancillary Procedure [address] [id number] 06/11/2024 12:00 EST Office Visit [address] [address] Terry Martinez MD [address] [place] [address], [address] [place] [address] Scheduled Orders Name Type Priority Associated Diagnoses Orde r Schedule UROLOGY BLADDER SCAN Procedure Routine Unspecified Retention of Urine Ordered: 08/12/2012 documented as of this encounter Visit Diagnoses Diagnosis Retention of urine, unspecified- Primary documented in this encounter Care Teams Ux Manager Relationship Specialty Start Date End Date Clarissa Slade MD [address] [place] [address] PCP - General 08/27/08 documented as of this encounter
--- OUTSIDE RECORDS SUMMARY | 2024-03-05 15:25 | XMS_ITS | Encounter Summary ---
Author Organization [facility] Address [address] [place] [address] Care Team Providers Care Career Technical Education Instructor Name Role Phone Clarissa Luther MD Primary Care Provider [phone] Reason for Visit * Reason Onset Date Comments Appointment Related 11/19/2020 Returning Call 11/22/2020 Follow-up 11/23/2020 Encounter Details Date Type Department Care Team (Late st Contact Info) Description 11/19/2020 Telephone [facility] Urology - [address] [phone] Terry Martinez MD [address] [place] [address], [address] [place] [address] Appointment Related; Returning Call; Follow-up Social History Tobacco Use Types Packs/Day Years [...] have Coronavirus / COVID-19? No / Unsure 11/09/2020 10:02 EDT documented as of this encounter Functional [...] encounter Miscellaneous Notes * Telephone Encounter - Sade Alvarado - 11/23/2020 1534 EDT Spoke to patient and scheduled follow up with Dr Martinez. * Telephone Encounter - Milvia Ortiz - 11/23/2020 1522 EDT Patient calling back to schedule. * Telephone Encounter - Leti Villagran - 11/22/2020 1229 EDT Patient returning call from Sade. Please call back to reschedule. Patient reachable for about a half hour until he leaves for an appointment and won't be back until 4. Patient states is available raymundo tomorrow as well for a call back. * Telephone Encounter - Sade Alvarado - 11/19/2020 1024 EDT Spoke to pt with pt appt for CT scan 04/12/21, check in at 12:15 for 1230 scan, pt needs to call back for follow up appt with Dr Martinez. documented in this encounter Plan of Treatment Upcoming Encounters Date Type Department Care Team (Late st Contact Info) Description 03/24/2024 9:30 EST Appointment [facility] Endoscopy [address] [place] [address] Eleazar Ladd MD [address] [place] [address] [address] [place] [address] 06/11/2024 11:30 EST Ancillary Procedure [address] [id number] 06/11/2024 12:00 EST Office Visit [address] [id number] Terry Martinez MD [address] [place] [address], [address] [place] [phone] documented as of this encounter Visit Diagnoses Not on filedocumented in this encounter Care Teams Career Technical Education Instructor Relationship Specialty Start Date End Date Clarissa Luther MD [address] [place] [phone] PCP - General 08/27/08 documented as of this encounter
--- OUTSIDE RECORDS SUMMARY | 2024-03-05 15:25 | XMS_ITS | Encounter Summary ---
Author Organization [facility] Address [address] [place] [address] Care Team Providers Care Coding Quality Coordinator Name Role Phone Clarissa Luther MD Primary Care Provider [phone] Encounter Details Date Type Department Care Team (Late st Contact Info) Description 08/05/2013 16:23 EDT - 08/05/2013 23:59 EDT Hospital Encounter [facility] Radiation Oncology - [address] [address] Dank Perkins MD [address] [facility], [address] [place] [address] Discharge Disposition: Home or Self Care Social [...] on file documented as of this encounter Discharge Diagnoses Diagnosis 185. MALIGN NEOPL PROSTATE[ICD-9-CM] V58.0 RADIOTHERAPY SESSION[ICD-9-CM] documented in this encounter Medications at Time of Discharge Medication Sig Dispensed Refills Start Date End Date albuterol (ACCUNEB) 1.25 mg/3 mL nebulizer solution Inhale 1.25 mg as directed every 4 hours as needed. 11/13/2019 tamsulosin (FLOMAX) 0.4 mg capsule Take 1 Cap by mouth daily. 90 Cap 3 08/12/2012 08/22/2013 tamsulosin (FLOMAX) 0.4 mg capsule Take 1 Cap by mouth daily. 30 Cap 3 08/01/2012 08/22/2013 documented as of this encounter Discharge Disposition Disposition Code Departure Means Destination Home or Self Shelter documented in this encounter Plan of Treatment Upcoming Encounters Date Type Department Care Team (Late st Contact Info) Description 03/24/2024 9:30 EST Appointment [facility] Endoscopy [address] [place] [address] Eleazar Ladd MD [facility] [address] [place] [phone] 06/11/2024 11:30 EST Ancillary Procedure [address] [id number] 06/11/2024 12:00 EST Office Visit [address] 802641 Terry Martinez MD [address] [place] [address], [address] [place] [phone] documented as of this encounter Visit Diagnoses Not on filedocumented in this encounter Care Teams Coding Quality Coordinator Relationship Specialty Start Date End Date Clarissa Luther MD [address] [place] [phone] PCP - General 08/27/08 documented as of this encounter
--- OUTSIDE RECORDS SUMMARY | 2024-03-05 15:25 | XMS_ITS | Encounter Summary ---
Author Organization [facility] Address [address] [place] [address] Care Team Providers Care Boot And Shoe Laborer Name Role Phone Clarissa Luther MD Primary Care Provider [phone] Reason for Visit * Reason Onset Date Comments Appointment Related 12/03/2019 Encounter Details Date Type Department Care Team (Late st Contact Info) Description 12/03/2019 Telephone [facility] Urology - [address] [phone] Terry Martinez MD [address] [place] [address], [address] [place] [address] Appointment Related Social History Tobacco Use Types [...] * Telephone Encounter - Sade Alvarado - 12/05/2019 1358 EDT Patient calling back and scheduled appt with Dr Martinez * Telephone Encounter - Sade Alvarado - 12/03/2019 0856 EDT Spoke to patient to offer appt with Dr Martinez per referral from PCP, patient has appointment with nephrology on 12/04 and will call us back after discussion with panel monitor. Please put call throughto Sade when patient calls back. documented in this encounter Plan of Treatment Upcoming Encounters Date Type Department Care Team (Late st Contact Info) Description 03/24/2024 9:[address] [facility] Endoscopy [address] [place] [address] Eleazar Ladd MD [address] [place] [address] [address] [place] [phone] 06/11/2024 11:30 EST Ancillary Procedure [address] [id number] 06/11/2024 12:00 EST Office Visit [address] [phone] Terry Martinez MD [address] [place] [address], [address] [place] [phone] documented as of this encounter Visit Diagnoses Not on filedocumented in this encounter Care Teams Boot And Shoe Laborer Relationship Specialty Start Date End Date Clarissa Luther MD [address] [place] [phone] PCP - General 08/27/08 documented as of this encounter
--- OUTSIDE RECORDS SUMMARY | 2024-03-05 15:25 | XMS_ITS | Encounter Summary ---
Author Organization [facility] Address [address] [place] [address] Care Team Providers Care Rubber Stamp Die Inspector Name Role Phone Clarissa Luther MD Primary Care Provider [phone] Reason for Referral * Radiology Services (Routine) - Closed Specialty Diagnoses / Procedures Referred By Shane lanza Referred To Contact Diagnoses Renal mass Procedures CT ABDOMEN WO CONTRAST Terry Martinez MD [address] [place] [phone] Referral ID Status Reason Start Date Expiration Date Visits Re quested Visits Authorized [id number] Closed 11/18/2020 1 1 Reason for Visit * Reason Comments Follow-up 6 Mo F/U RNEAL ULS , PSA Encounter Details Date Type Department Care Team (Late st Contact Info) Description 11/18/2020 11:00 EDT Office Visit [facility] Urology - [address] [address] Terry Martinez MD [address] [place] [phone] Prostate cancer (HCC-CMS) (Primary Dx); Stage 3b chronic kidney disease; Renal mass Social History Tobacco Use Types [...] Progress Notes * Terry Martinez MD - 11/18/2020 1100 EDT 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 Perkins [facility] - failed PDE5's - not S/A [...] BETH to 2011 - again slight increase PSA but still 'BETH' Prior history urinary retention Stable - right 2.8 cm small Bosniak 4 Simple left renal cyst - Bosniak 1 Prior stable CKD Stable ED - not S/A PLAN: F/U BMP / PSA / non-contrast CT abdo Again discussion regarding anatomy and complexity - risk of right radical nephrectomy very possible- in light of CKD - active surveillance favored * Terry Martinez MD - 11/18/2020 1100 EDT INDICATIONS: Renal mass - therefore, upper tract workup was warranted. FINDINGS: Using a 3.5 MHz probe, the kidneys were scanned throughout their transverse and longitudinal axes. Real-time scanning failed to demonstrate any abnormalities of the renal sinus fat or parenchymal echogenicity. No uretero or hydronephrosis were seen. The right kidney measured 13.2 cm - 20 cm MP/2.9 cm UP cyst - 3.1 cm mass, and the left 11.0 cm - 3.0 cm LP cyst. IMPRESSION: Normal left kidney / right stable renal mass - central. documented in this encounter Plan of Treatment Upcoming Encounters Date Type Department Care Team (Late st Contact Info) Description 03/24/2024 9:30 EST Appointment [facility] Endoscopy [address] [place] [address] Eleazar Ladd MD [address] [place] [address] [address] [place] [address] 06/11/2024 11:30 EST Ancillary Procedure [facility] [id number] 06/11/2024 12:00 EST Office Visit [facility] [address] Terry Martinez MD [address] [facility], [address] [place] [phone] documented as of this encounter Results * CT ABDOMEN WO CONTRAST (04/12/2021 11:55 EST) Anatomical Region Laterality Modality Body, Abdomen Computed Tomogra phy 04/12/2021 13:1 5 EST Impressions 04/12/2021 13:15 EST When accounting for differences in technique, there is no appreciable change in size of the solid component of the large right renal cystic mass on this unenhanced CT of the abdomen. Narrative 04/12/2021 13:[address] ABDOMEN WO CONTRAST ??04/12/2021 12:30 PM Signs and Symptoms/Comments: ?? Renal mass, renal insufficiency; F/U right renal mass Technique: CT of the abdomen was performed without the use of intravenous contrast; coronal and sagittal multiplanar reconstructions generated. Comparison: November 11, 2019 Findings: Lower chest: Unremarkable. Hepatobiliary: No contour deforming hepatic lesion. Scattered hepatic cysts. Gallbladder and biliary tree are unremarkable. Spleen, pancreas, adrenal glands: 2.2 cm long axis right adrenal adenoma. Mild left adrenal hypertrophy. No contour deforming pancreatic or splenic lesion. Splenic cyst is unchanged. Punctate pancreatic parenchymal calcifications reflect sequela of chronic pancreatitis. Kidneys, proximal ureters: The solid component of the large right renal cystic lesion is not significantly changed when accounting for differences in technique measuring approximately 3 cm long axis on axial image #145. Simple bilateral renal cysts are present as well, unchanged. No hydroureteronephrosis. Bowel: Included bowel demonstrates no obstruction or acute inflammation. Peritoneal cavity: No free fluid or free air. Lymphovascular: Aorta and branch vessels are atherosclerotic, without aneurysmal dilation. No lymphadenopathy. Abdominal wall: No bowel containing hernia. Musculoskeletal: No suspicious osseous lesion. Diffuse osseous demineralization. Multilevel degenerative disc disease and facet arthropathy. Snaker: No additional findings. Procedure Note Oleksandr Dale MD - 04/12/2021 CT ABDOMEN WO CONTRAST 04/12/2021 12:30 PM Signs and Symptoms/Comments: Renal mass, renal insufficiency; F/U right renal mass Technique: CT of the abdomen was performed without the use of intravenous contrast;coronal and sagittal multiplanar reconstructions generated. Comparison: November 11, 2019 Findings: Lower chest: Unremarkable. Hepatobiliary: No contour deforming hepatic lesion. Scattered hepaticcysts. Gallbladder and biliary tree are unremarkable. Spleen, pancreas, adrenal glands: 2.2 cm long axis right adrenal adenoma.Mild left adrenal hypertrophy. No contour deforming pancreatic or spleniclesion. Splenic cyst is unchanged. Punctate pancreatic parenchymalcalcifications reflect sequela of chronic pancreatitis. Kidneys, proximal ureters: The solid component of the large right renalcystic lesion is not significantly changed when accounting for differencesin technique measuring approximately 3 cm long axis on axial image #145.Simple bilateral renal cysts are present as well, unchanged. Nohydroureteronephrosis. Bowel: Included bowel demonstrates no obstruction or acute inflammation. Peritoneal cavity: No free fluid or free air. Lymphovascular: Aorta and branch vessels are atherosclerotic, withoutaneurysmal dilation. No lymphadenopathy. Abdominal wall: No bowel containing hernia. Musculoskeletal: No suspicious osseous lesion. Diffuse osseousdemineralization. Multilevel degenerative disc disease and facetarthropathy. Snaker: No additional findings. IMPRESSION When accounting for differences in technique, there is no appreciablechange in size of the solid component of the large right renal cystic frannie this unenhanced CT of the abdomen. Terry Martinez MD [facility] CT ORDERABLES * PSA TOTAL, DIAGNOSTIC (04/12/2021 11:28 EST) PSA 2.7 0.0 - 6.5 ng/mL 04/12/2021 13:[address] [facility] Blood VENOUS BLOOD / Unknown Venipuncture / Unknown 04/12/2021 11:28 EST 04/12/2021 11:[address] [facility] - 04/12/2021 13:52 EST NOTE: Serum PSA concentration should not be interpreted as absolute evidence for the presence or absence of malignant disease. Assayed on Siemens ADVIA Customcellsaur XPT using chemiluminescent technology.??Values obtained by using different assay methods cannot be used interchangeably. Terry Martinez MD CHEMISTRY & BLOOD GAS ORDERABLES [facility] [address] [place] [address] * (ABNORMAL) BASIC METABOLIC PANEL (BMP) (04/12/2021 11:28 EST) Sodium 140 136 - 145 mmol/L 04/12/2021 12:30 [facility] Potassium 4.4 3.5 - 5.0 mmol/L 04/12/2021 12:30 [facility] Chloride 105 96 - 110 mmol/L 04/12/2021 12:30 [facility] CO2 Total 26 22 - 32 mmol/L 04/12/2021 12:30 [facility] Anion Gap 9 8 - 16 04/12/2021 12:30 [facility] Glucose 95 70 - 100 mg/dL 04/12/2021 12:30 [facility] Calcium 9.4 8.5 - 10.5 mg/dL 04/12/2021 12:30 [facility] BUN 39(H) 10 - 26 mg/dL 04/12/2021 12:30 [facility] Creatinine 1.99(H) 0.66 - 1.25 mg/dL 04/12/2021 12:30 [facility] eGFR 31(L) >60 mL/min/1.73 m2 04/12/2021 12:30 [facility] Blood VENOUS BLOOD / Unknown Venipuncture / Unknown 04/12/2021 11:28 EST 04/12/2021 11:54 EST Terry Martinez MD CHEMISTRY & BLOOD GAS ORDERABLES [facility] [address] [place] [address] documented in this encounter Visit Diagnoses Diagnosis Prostate cancer (HCC-CMS)- Primary Malignant neoplasm of prostate Stage 3b chronic kidney disease (HCC-CMS) Renal mass Unspecified disorder of kidney and ureter Renal mass Unspecified disorder of kidney and ureter Stage 3b chronic kidney disease (HCC-CMS) Prostate cancer (HCC-CMS) Malignant neoplasm of prostate documented in this encounter Care Teams Rubber Stamp Die Inspector Relationship Specialty Start Date End Date Clarissa Luther MD [address] [place] [phone] PCP - General 08/27/08 documented as of this encounter
--- OUTSIDE RECORDS SUMMARY | 2024-03-05 15:25 | XMS_ITS | Encounter Summary ---
Author Organization [facility] Address [address] [place] [address] Care Team Providers Care Hydroelectric Systems Technician Name Role Phone Clarissa Luther MD Primary Care Provider [phone] Reason for Visit * Radiology Services (Routine) - Closed Specialty Diagnoses / Procedures Referred By Shane lanza Referred To Contact Radiology Diagnoses Stage 3 chronic kidney disease (HCC-CMS) Renal mass Procedures MR ABDOMEN WO CONTRAST MR ABDOMEN W WO CONTRAST MR ABDOMEN WO CONTRAST Terry Martinez MD [address] [place] [address], [facility] [address] [place] [address] Referral ID Status Reason Start Date Expiration Date Visits Re quested Visits Authorized [id number] Closed 12/18/2019 1 1 Encounter Details Date Type Department Care Team (Latest Contact Info) Description 04/26/2020 12:04 EST - 04/26/2020 23:59 EST Hospital Encounter [facility] [address] [place], [place] [id number] Stage 3 chronic kidney disease (HCC-CMS); Renal mass Discharge Disposition: Home or Self Care Social [...] have Coronavirus / COVID-19? No / Unsure 04/26/2020 12:04 EST documented as of this encounter Functional [...] Contact Info) Description 03/24/2024 9:30 EST Appointment [facility] Endoscopy [address] [place] [address] Eleazar Ladd MD [facility] [address] [place] [phone] 06/11/2024 11:30 EST Ancillary Procedure [facility] [address] [address] 06/11/2024 12:00 EST Office Visit [facility] [address] [id number] Terry Martinez MD [address] [place] [address], [address] [place] [phone] documented as of this encounter Procedures Procedure Name Priority Date/Time Associated Diagnosis Comments MR ABDOMEN WO CONTRAST Routine 04/26/2020 13:24 EST Stage 3 chronic kidney disease (HCC-CMS) Renal mass POCT CREATININE, ISTAT Routine 04/26/2020 12:35 EST documented in this encounter Results * MR ABDOMEN WO CONTRAST (04/26/2020 13:24 EST) Anatomical Region Laterality Modality Body, Abdomen Magnetic Resonan ce 04/26/2020 16:1 8 EST Impressions 04/26/2020 16:18 EST 1. Redemonstrated large cystic lesion in the right kidney measuring approximately 21 cm craniocaudally with a 2.8 cm solid component which demonstrates restricted diffusion. The study is limited by lack of intravenous contrast, however on prior multiphase imaging, the solid component is noted to enhance, although slightly less then the adjacent renal parenchyma. Altogether, these findings are most suspicious for renal neoplasm. 2. No interval change in size of the 3.3 cm partially exophytic left lower pole renal cyst. No septations are present, likely Bosniak category 1. I have personally reviewed the images and the above interpretation and agree with the findings. Narrative 04/26/2020 16:18 EST MR ABDOMEN WO CONTRAST ??04/26/2020 12:45 PM Signs and Symptoms/Comments: ?? Renal mass, renal insufficiency; F/U right renal mass and complex left renal cyst Technique: ?? Transaxial T1 and fat-saturated T2 weighted images, followed by pre- and postcontrast fat-saturated transaxial gradient breath-hold sequences were obtained of the abdomen. ??The postgadolinium sequences were obtained at ten seconds, one minute, two minutes, three minutes and five minutes postcontrast injection. Comparison: Outside multiphase CT from November 11, 2019 Findings: Lower chest: No significant abnormality. Hepatobiliary: No concerning focal hepatic lesion. There are multiple hepatic cysts present. There is no intra or extrahepatic biliary ductal dilation. Spleen, pancreas, adrenal glands: In the splenic hilum, there is a T2 hyperintense lesion with surrounding rim of T2 hypointensity, likely evolving hematoma with hemosiderin rim. Tiny subcapsular T2 hyperintense lesion in the inferior aspect of the spleen is also present, benign. The pancreas is unremarkable. Oval lesion in the right adrenal gland measuring approximately 1.9 cm demonstrates signal dropout on out of phase imaging compatible with a small adrenal adenoma. The right adrenal the left adrenal appears somewhat thickened, however no discrete lesions are identified. Kidneys, proximal ureters: Arising from the anterior aspect of the right kidney is a large predominately cystic lesion which measures approximately 21 cm in greatest dimension (craniocaudal). At its interface with the right kidney, there is a solid-appearing component which measures approximately 2.8 cm. This is intrinsically slightly hyperintense to the renal medulla and slightly hypointense on T2 to the renal medulla. There is associated restricted diffusion. There is no appreciable signal dropout on in and out of phase imaging or fat suppressed imaging to suggest intracellular or macroscopic fat, respectively . There are scattered cysts in both kidneys. An exophytic left lower pole renal cyst measures 3.2 cm, grossly unchanged from prior. Bowel: There is no small or large bowel obstruction. There is mass effect on several loops of bowel which appear displaced toward the left hemiabdomen. Peritoneal cavity / Subperitoneal space: There is bilateral perinephric fat stranding. No free fluid. Lymphovascular: Normal caliber abdominal aorta. There is mild compression of the infrahepatic IVC by the large cystic component of the aforementioned right renal mass. There is no lymphadenopathy. Abdominal wall: There are no bowel-containing hernias. Musculoskeletal: No marrow replacing lesions. Procedure Note Oleksandr Dale MD - 04/26/2020 MR ABDOMEN WO CONTRAST 04/26/2020 12:45 PM Signs and Symptoms/Comments: Renal mass, renal insufficiency; F/U right renal mass and complex leftrenal cyst Technique: Transaxial T1 and fat-saturated T2 weighted images, followed by pre- andpostcontrast fat-saturated transaxial gradient breath-hold sequences wereobtained of the abdomen. The postgadolinium sequences were obtained atten seconds, one minute, two minutes, three minutes and five minutespostcontrast injection. Comparison: Outside multiphase CT from November 11, 2019 Findings: Lower chest: No significant abnormality. Hepatobiliary: No concerning focal hepatic lesion. There are multiplehepatic cysts present. There is no intra or extrahepatic biliary ductaldilation. Spleen, pancreas, adrenal glands: In the splenic hilum, there is a [id number] lesion with surrounding rim of T2 hypointensity, likelyevolving hematoma with hemosiderin rim. Tiny subcapsular T2 hyperintenselesion in the inferior aspect of the spleen is also present, benign. The pancreas is unremarkable. Oval lesion in the right adrenal gland measuring approximately 1.9 cmdemonstrates signal dropout on out of phase imaging compatible with asmall adrenal adenoma. The right adrenal the left adrenal appears somewhatthickened, however no discrete lesions are identified. Kidneys, proximal ureters: Arising from the anterior aspect of the rightkidney is a large predominately cystic lesion which measures [id number] cm in greatest dimension (craniocaudal). At its interface with theright kidney, there is a solid-appearing component which measuresapproximately 2.8 cm. This is intrinsically slightly hyperintense to therenal medulla and slightly hypointense on T2 to the renal medulla. Thereis associated restricted diffusion. There is no appreciable signal dropouton in and out of phase imaging or fat suppressed imaging to suggestintracellular or macroscopic fat, respectively . There are scattered cysts in both kidneys. An exophytic left lower polerenal cyst measures 3.2 cm, grossly unchanged from prior. Bowel: There is no small or large bowel obstruction. There is mass effecton several loops of bowel which appear displaced toward the lefthemiabdomen. Peritoneal cavity / Subperitoneal space: There is bilateral perinephricfat stranding. No free fluid. Lymphovascular: Normal caliber abdominal aorta. There is mild compressionof the infrahepatic IVC by the large cystic component of theaforementioned right renal mass. There is no lymphadenopathy. Abdominal wall: There are no bowel-containing hernias. Musculoskeletal: No marrow replacing lesions. IMPRESSION 1. Redemonstrated large cystic lesion in the right kidney measuringapproximately 21 cm craniocaudally with a 2.8 cm solid component whichdemonstrates restricted diffusion. The study is limited by lack ofintravenous contrast, however on prior multiphase imaging, the solidcomponent is noted to enhance, although slightly less then the adjacentrenal parenchyma. Altogether, these findings are most suspicious for renalneoplasm. 2. No interval change in size of the 3.3 cm partially exophytic left lowerpole renal cyst. No septations are present, likely Bosniak category 1. I have personally reviewed the images and the above interpretation andagree with the findings. Terry Martinez MD IMG MRI ORDERABLE S * (ABNORMAL) POCT CREATININE, ISTAT (04/26/2020 12:35 EST) iSTAT Creatinine 2.2(H) 0.7 - 1.3 mg/dL 05/14/2020 13:18 EST [facility] eGFR, Calculated, i-STAT 28(L) >60 mL/min/1. 73m2 05/14/2020 13:18 EST [facility] Comment:eGFR calculated nazia killian CKD-EPI for non- Americans. Multiply eGFR by 1.16 for patients. Tech ID [id number] 05/14/2020 13:18 EST [facility] HN LAB POC COMMENT (CREATININE) Test performed by Radiology Imaging. 05/14/2020 13:18 EST [facility] Blood VENOUS BLOOD / Unknown 04/26/2020 12:35 EST 05/14/2020 13:18 EST Provider Unknown POINT OF CARE TEST O RDERABLES [facility] [address] [place] [address] documented in this encounter Visit Diagnoses Diagnosis Stage 3 chronic kidney disease ([facility]) Renal mass Unspecified disorder of kidney and ureter documented in this encounter Care Teams Hydroelectric Systems Technician Relationship Specialty Start Date End Date Clarissa Luther MD [address] [place] [phone] PCP - General 08/27/08 documented as of this encounter
--- OUTSIDE RECORDS SUMMARY | 2024-03-05 15:25 | XMS_ITS | Encounter Summary ---
Author Organization [facility] Address [address] [place] [address] Care Team Providers Care Commission Specialist Name Role Phone Clarissa Luther MD Primary Care Provider [phone] Encounter Details Date Type Department Care Team (Late st Contact Info) Description 11/11/2019 Results Only [facility] Lab - Main [place] [address] [place], [place] [id number] Clarissa Luther MD [address] [place] [phone] Social History Tobacco Use Types Packs/Day [...] Contact Info) Description 03/24/2024 9:30 EST Appointment [facility] Endoscopy [address] [place], [place] [address] Eleazar Ladd MD [facility] [address] [place] [address] 06/11/2024 11:30 EST Ancillary Procedure [facility] Urology - [facility] [address] [place] [address] 06/11/2024 12:00 EST Office Visit [facility] Urology - [facility] [address] [place] [address] Terry Martinez MD [address] [facility], [address] [place] [phone] documented as of this encounter Procedures Procedure Name Priority Date/Time Associated Diagnosis Comments CREATININE Routine 11/11/2019 15:47 EDT documented in this encounter Results * (ABNORMAL) CREATININE (11/11/2019 15:47 EDT) CREATININE 1.63(H) 0.66 - 1.25 mg/dL 11/11/2019 16:13 EDT [facility] eGFR 41 11/11/2019 16:13 EDT [facility] Comment: Stage 3: Moderate renal impairment is defined as GFR 30-59 Multiply result by 1.210 for patients. 11/11/2019 15:4 7 EDT 11/11/2019 15:47 EDT Narrative [facility] - 11/11/2019 16:13 EDT Does PT Have a Latex Allergy? NO Clarissa Luther MD CHEMISTRY & BLOOD GA S ORDERABLES Performing Organization Address City/State/[facility] Co de Phone Number [facility] [address] [place] [address] documented in this encounter Visit Diagnoses Not on filedocumented in this encounter Care Teams Commission Specialist Relationship Specialty Start Date End Date Clarissa Luther MD [address] [facility] [place] [phone] PCP - General 08/27/08 documented as of this encounter
--- OUTSIDE RECORDS SUMMARY | 2024-03-05 15:25 | XMS_ITS | Encounter Summary ---
Author Organization [facility] Address [address] [place] [address] Care Team Providers Care Players Assistant Name Role Phone Clarissa Luther MD Primary Care Provider [phone] Reason for Referral * Radiology Services (Routine) - Closed Specialty Diagnoses / Procedures Referred By Shane lanza Referred To Contact Diagnoses Renal mass Procedures CT ABDOMEN WO CONTRAST Terry Martinez MD [address] [place] [phone] Referral ID Status Reason Start Date Expiration Date Visits Re quested Visits Authorized [id number] Closed 11/18/2020 1 1 Reason for Visit * Radiology Services (Routine) - Closed Specialty Diagnoses / Procedures Referred By Shane lanza Referred To Contact Diagnoses Renal mass Procedures CT ABDOMEN WO CONTRAST Terry Martinez MD [address] [place] [phone] Referral ID Status Reason Start Date Expiration Date Visits Re quested Visits Authorized [id number] Closed 11/18/2020 1 1 Encounter Details Date Type Department Care Team (Latest Contact Info) Description 04/12/2021 10:22 EST - 04/12/2021 23:59 EST Hospital [facility] - [address] [address] Renal mass; Stage 3b chronic kidney disease (HCC); Prostate cancer (HCC-CMS) (HCC) (HCC-CMS) Discharge Disposition: Home or Self Care Social [...] Contact Info) Description 03/24/2024 9:30 EST Appointment [facility] Endoscopy [address] [place] [address] Eleazar Ladd MD [facility] [address] [place] [address] 06/11/2024 11:30 EST Ancillary Procedure [facility] Urology - Main [address] [phone] 06/11/2024 12:00 EST Office Visit [facility] Urology - [facility] [address] [place] [address] Terry Martinez MD [address] [facility], [address] [place] [phone] documented as of this encounter Procedures Procedure Name Priority Date/Time Associated Diagnosis Comments CT ABDOMEN (ONLY) WO CONTRAST Routine 04/12/2021 11:55 EST Renal mass PSA TOTAL, DIAGNOSTIC Routine 04/12/2021 11:28 EST Prostate cancer (HCC-CMS) (HCC) (HCC-CMS) BASIC METABOLIC PANEL (BMP) Routine 04/12/2021 11:28 EST Stage 3b chronic kidney disease (HCC) documented in this encounter Results * CT ABDOMEN WO [...] Multilevel degenerative disc disease and facet arthropathy. Tow Picker: No additional findings. Procedure Note Oleksandr Dale [...] osseousdemineralization. Multilevel degenerative disc disease and facetarthropathy. Tow Picker: No additional findings. IMPRESSION When accounting for differences in technique, there is no appreciablechange in size of the solid component of the large right renal cystic frannie this unenhanced CT of the abdomen. Terry Martinez MD IMG CT ORDERABLES * PSA TOTAL, DIAGNOSTIC (04/12/2021 11:28 EST) PSA 2.7 0.0 - 6.5 ng/mL 04/12/2021 13:52 [facility] Blood VENOUS BLOOD / Unknown Venipuncture / Unknown 04/12/2021 11:28 EST 04/12/2021 11:54 EST Narrative [facility] - 04/12/2021 13:52 EST NOTE: Serum PSA concentration should not be interpreted as absolute evidence for the presence or absence of malignant disease. Assayed on Siemens Ninuaaur XPT using chemiluminescent technology.??Values obtained by using different assay methods cannot be used interchangeably. Terry Martinez MD CHEMISTRY & BLOOD GAS ORDERABLES [facility] [address] [place] [address] * (ABNORMAL) BASIC METABOLIC PANEL (BMP) (04/12/2021 11:28 EST) Sodium 140 136 - 145 mmol/L 04/12/2021 12:30 [facility] Potassium 4.4 3.5 - 5.0 mmol/L 04/12/2021 12:30 [facility] Chloride 105 96 - 110 mmol/L 04/12/2021 12:30 [facility] CO2 Total 26 22 - 32 mmol/L 04/12/2021 12:30 [facility] Anion Gap 9 8 - 16 04/12/2021 12:30 [facility] Glucose 95 70 - 100 mg/dL 04/12/2021 12:30 [facility] Calcium 9.4 8.5 - 10.5 mg/dL 04/12/2021 12:30 [facility] BUN 39(H) 10 - 26 mg/dL 04/12/2021 12:30 [facility] Creatinine 1.99(H) 0.66 - 1.25 mg/dL 04/12/2021 12:30 [facility] eGFR 31(L) >60 mL/min/1.73 m2 04/12/2021 12:30 [facility] Blood VENOUS BLOOD / Unknown Venipuncture / Unknown 04/12/2021 11:28 EST 04/12/2021 11:54 EST Terry Martinez MD CHEMISTRY & BLOOD GAS ORDERABLES [facility] [address] [place] [address] documented in this encounter Visit Diagnoses Diagnosis Renal mass Unspecified disorder of kidney and ureter Stage 3b chronic kidney disease (HCC-CMS) Prostate cancer ([facility]) Malignant neoplasm of prostate documented in this encounter Care Teams Players Assistant Relationship Specialty Start Date End Date Clarissa Luther MD [address] [place] [phone] PCP - General 08/27/08 documented as of this encounter
--- OUTSIDE RECORDS SUMMARY | 2024-03-05 15:25 | XMS_ITS | Encounter Summary ---
Author Organization [facility] Address [address] [place] [address] Care Team Providers Care Supplier Quality Engineer Name Role Phone Clarissa Luther MD Primary Care Provider [phone] Reason for Visit * Reason Comments Follow-up Encounter Details Date Type Department Care Team (Late st Contact Info) Description 11/18/2020 10:30 EDT Procedure visit [facility] Urology - [address] [address] Urology, Ultrasound Renal mass (Primary Dx) Social [...] encounter Progress Notes * Paul Pulido - 11/18/2020 1030 EDT Renal ultrasound performed 11/18/2020 documented in this encounter Plan of Treatment Upcoming Encounters Date Type Department Care Team (Late st Contact Info) Description 03/24/2024 9:30 EST Appointment [facility] Endoscopy [address] [place] [address] Eleazar Ladd MD [address] [place] [address] [address] [place] [phone] 06/11/2024 11:30 EST Ancillary Procedure [address] [phone] 06/11/2024 12:00 EST Office Visit [address] [address] Terry Martinez MD [address] [place] [address], [address] [place] [phone] documented as of this encounter Visit Diagnoses Diagnosis Renal mass- Primary Unspecified disorder of kidney and ureter documented in this encounter Care Teams Supplier Quality Engineer Relationship Specialty Start Date End Date Clarissa Luther MD [address] [facility] [place] [phone] PCP - General 08/27/08 documented as of this encounter
--- OUTSIDE RECORDS SUMMARY | 2024-03-05 15:25 | XMS_ITS | Encounter Summary ---
Author Organization [facility] Address [address] [place] [address] Care Team Providers Care Public Health Outreach Worker Name Role Phone Clarissa Luther MD Primary Care Provider [phone] Reason for Visit * Reason Comments Cyst * Consult (Routine) - Closed Specialty Diagnoses / Procedures Referred By Shane lanza Referred To Contact Nephrology Diagnoses Cyst of kidney, acquired Clarissa Luther MD [address] [place] [phone] [facility] [address] [place] [id number] Referral ID Status Reason Start Date Expiration Date Visits Re quested Visits Authorized [id number] Closed 1 1 Encounter Details Date Type Department Care Team (Late st Contact Info) Description 12/05/2019 9:15 EDT Office Visit [facility] Nephrology - [address] [phone] Tristin Main MD [address] [place] [address] Rehab, Level 2 [place] [address] Chronic kidney disease, stage III (moderate) (HCC-CMS) (Primary Dx) Social History Tobacco Use [...] on file documented as of this encounter Last Filed Vital Signs Vital Sign Reading Time Taken Comments Blood Pressure 144/67 12/05/2019 0852 EDT Pulse 69 12/05/2019 0852 EDT Temperature - - Respiratory Rate - - Oxygen Saturation - - Inhaled Oxygen Concentration - - Weight 82.5 kg (181 lb 14.4 oz) 12/05/2019 0852 EDT Height 180.3 cm (5' 11) 12/05/2019 0852 EDT Body Mass Index 25.37 12/05/2019 0852 EDT documented in this encounter Consult Notes * Tristin Main MD - 12/05/[address] [facility] NEPHROLOGY CONSULTATION - 12/05/2019 An outpatient renal consultation was requested by Dr Clarissa Luther for renal cyst and chronic kidneydisease. PROBLEMS: 1. Chronic renal failure, most likely secondary to hypertension, currently stage III chronic kidneydisease, estimated GFR is 40 mL per minute per 1.73 m2 based on serum creatinine 1.68 mg/dL. 2. Hypertension, treated for approximately 1 year. 3. Numerous bilateral simple renal cyst with a large 20 cm right renal cyst with an enhancing 3.3 cm mass along the medial margin, suspicious for malignancy. 4. Hepatic and splenic cysts. 5. Right renal adenoma, most likely not hormonal reactive. HISTORY OF PRESENT ILLNESS: Star Schumacher is a 79-year-old gentleman referred by Dr Clarissa Luther for evaluation of chronic renal failure and these numerous renal cysts. I have data on his renalfunction as far back as 10/2017 when his serum creatinine was elevated at 1.54 mg/dL. In early May of this year, creatinine was up to 1.82 and then in early November of this year it was at 1.63. He evidently had a renal ultrasound, which showed this right large cyst with an enhancing mass and a followup CT scan done 11/12/2019 showed the findings outlined in the problem list. The patient tells me that he has only been treated for high blood pressure for about 1 year. He denies any history of recurrent urinary tract infection, pyelonephritis, renal stones, hematuria or chronic use of nonsteroidal antiinflammatory drugs. There is no family history of chronic kidney disease, no family member was on dialysis and received a kidney transplant. No evidence for primary hyperaldosteronism or [place] syndrome. Subjectively, he feels well. He denies chest pain, palpitation, shortness of breath. No peripheral edema. His appetite is good. His weight has been stable. He developed a bout of shingles on his leftlower back, which still causing some pain. CURRENT MEDICATIONS: 1. Albuterol inhaler 2 puffs as needed. 2. Amlodipine 2.5 mg daily. 3. Beclomethasone inhaler 1 puff twice a day. 4. Gabapentin 300 mg 3 times a day as needed. ALLERGIES OR ADVERSE REACTION: None known. PAST MEDICAL HISTORY: As outlined in the problem list. In addition, 1. Prostate cancer diagnosed 2007. Mitzy score 7, treated with brachytherapy by Dr Asif Perkins,but he also saw Dr Martinez at the time. 2. Asthma. 3. Deviated nasal septum and snoring. 4. Polymyalgia rheumatica, treated in the late . SOCIAL HISTORY: The patient is . He has no children of his own. He is an ex-smoker but quit in 1974. He occasionally drinks alcohol. FAMILY HISTORY: Positive for hypertension, but negative for chronic kidney disease. REVIEW OF SYSTEMS: Positive for nocturia x2. All other symptoms were reviewed and were negative. PHYSICAL EXAMINATION: VITAL SIGNS: His weight is 82.5 kg, height 180 cm, BMI is 25.4. Blood pressure is 144/67, pulse is 69 and regular. SKIN: Dry. There is a fading rash on his left lower back from the shingles. Otherwise, no rashes. NECK: Supple, no jugular venous distention, lymphadenopathy or carotid bruits. LUNGS: Clear to auscultation. CARDIOVASCULAR: Regular rate and rhythm, no rub. ABDOMEN: Deferred. No CVA tenderness. EXTREMITIES: Show no edema. NEUROLOGIC: Alert, oriented x3, nonfocal. DIAGNOSTIC DATA: 12/03/2019, urinalysis: PH 5.5, specific gravity is 1.020, glucose negative, bloodnegative, protein negative, nitrite negative, leukocyte esterase negative. 12/03/2019: Sodium 137, potassium 5.2, chloride 104, CO2 of 28, BUN 33, creatinine 1.68, calcium 9.3, phosphorus 3.5, albumin 4.1. WBC 5.9, hemoglobin 14.2, hematocrit 43.2, platelets 219. ASSESSMENT: Star Schumacher is a 79-year-old gentleman who has evidence of stage III chronic kidney disease for the last 2 years. Based on the history and the urinalysis this is most likely due to hypertension despite the fact that he has only been treated for 1 year. The description of his kidneys on abdominal CAT scan does not look like polycystic kidney disease, although this cannot be totally ruled out since I do not have access to the pictures. If he did have polycystic kidney disease,it would be most likely a new mutation. More concerning is the large right renal cyst with enhancing mass, which is quite suspicious for a malignancy and should be evaluated by Dr Martinez or one of his partners. At this time, his renal function appears to be stable over the last years. He has no major electrolyte or acid base abnormalities other than mild hyperkalemia and I gave him written information aboutlow and high potassium foods. Both calcium and phosphorus levels are in target range, and his nutritional status is excellent based on serum albumin level. At this time, he has no anemia and his urinalysis is normal. PLAN: 1. Keep blood pressure diary to make sure blood pressure is in the target range of 130/80 or below. 2. Follow a low salt diet and the patient received written information about salt content of various foods. 3. Avoid high potassium fluids. 4. Follow up with urology. 5. Follow up with me in approximately 6 months. Thank you very much for this referral. Tristin Main MD / CC Dictation ID: [id number] cc: Clarissa Luther MD, [address] [facility], [place] [address] Terry Martinez MD, [facility] - Urology, [address] [place] [id number] documented in this encounter Plan of Treatment Upcoming Encounters Date Type Department Care Team (Late st Contact Info) Description 03/24/2024 9:30 EST Appointment [facility] Endoscopy [address] [place] [address] Eleazar Ladd MD [facility] [address] [place] [phone] 06/11/2024 11:30 EST Ancillary Procedure [facility] [address] [phone] 06/11/2024 12:00 EST Office Visit [address] [phone] Terry Martinez MD [address] [place] [address], [address] [place] [address] documented as of this encounter Visit Diagnoses Diagnosis Chronic kidney disease, stage III (moderate) ([facility])- Primary Chronic kidney disease, Stage III (moderate) documented in this encounter Historical Medications * This list may reflect changes made after this encounter. Medication Sig Dispensed Refills Start Date End Date gabapentin (NEURONTIN) 300 mg capsule Take 300 mg by mouth 3 times daily as needed. added in this encounter Care Teams Public Health Outreach Worker Relationship Specialty Start Date End Date Clarissa Luther MD [address] [place] [phone] PCP - General 08/27/08 documented as of this encounter
--- OUTSIDE RECORDS SUMMARY | 2024-03-05 15:25 | XMS_ITS | Encounter Summary ---
Author Organization [facility] Address [address] [place] [address] Care Team Providers Care Service Greeter Name Role Phone Clarissa Luther MD Primary Care Provider [phone] Encounter Details Date Type Department Care Team (Latest Contact Info) Description 05/20/2020 Travel Social History Tobacco Use Types Packs/Day Years [...] Contact Info) Description 03/24/2024 9:30 EST Appointment [facility] Endoscopy [address] [place] [address] Eleazar Ladd MD [facility] [address] [place] [phone] 06/11/2024 11:30 EST Ancillary Procedure [address] [id number] 06/11/2024 12:00 EST Office Visit [address] [phone] Terry Martinez MD [address] [place] [address], [address] [place] [address] documented as of this encounter Visit Diagnoses Not on filedocumented in this encounter Care Teams Service Greeter Relationship Specialty Start Date End Date Clarissa Luther MD 4 [facility] [phone] PCP - General 08/27/08 documented as of this encounter
--- OUTSIDE RECORDS SUMMARY | 2024-03-05 15:25 | XMS_ITS | Encounter Summary ---
Author Organization [facility] Address [address] [place] [address] Care Team Providers Care Tobacco Sample Puller Name Role Phone Clarissa Luther MD Primary Care Provider [phone] Encounter Details Date Type Department Care Team (Latest Contact Info) Description 11/09/2020 Travel Social History Tobacco Use Types Packs/Day [...] 9:30 EST Appointment [facility] Endoscopy [address] [place] [address] Eleazar Ladd MD [facility] [address] [place] [address] 06/11/2024 11:30 EST Ancillary Procedure [address] [phone] 06/11/2024 12:00 EST Office Visit [address] [phone] Terry Maritnez MD [address] [place] [address], [address] [place] [address] documented as of this encounter Visit Diagnoses Not on filedocumented in this encounter Care Teams Tobacco Sample Puller Relationship Specialty Start Date End Date Clarissa Luther MD 4 [facility] [place] [phone] PCP - General 08/27/08 documented as of this encounter
--- OUTSIDE RECORDS SUMMARY | 2024-03-05 15:25 | XMS_ITS | Encounter Summary ---
Author Organization [facility] Address [address] [place] [address] Care Team Providers Care Multiple Knife Edge Trimmer Operator Name Role Phone Clarissa Luther MD Primary Care Provider [phone] Encounter Details Date Type Department Care Team (Late st Contact Info) Description 11/05/2012 Historical Results Only [facility] - Main [address] [address] Eleazar Ladd MD [facility] [address] [place] [phone] Social History Tobacco Use Types Packs/Day [...] Contact Info) Description 03/24/2024 9:30 EST Appointment [facility] Endoscopy [address] [place], [place] [address] Eleazar Ladd MD [facility] [address] [place] [phone] 06/11/2024 11:30 EST Ancillary Procedure [facility] Urology - [address] [address] 06/11/2024 12:00 EST Office Visit [facility] Urology - [facility] [address] [place], [place] [phone] Terry Martinez MD 111 [facility], [address] [place] [address] documented as of this encounter Procedures Procedure Name Priority Date/Time Associated Diagnosis Comments SURGICAL PATHOLOGY Routine 11/05/2012 documented in this encounter Results * SURGICAL PATHOLOGY (11/05/2012) 11/05/2012 11/05/2012 17: 15 EDT [facility] - 11/08/2012 13:51 EDT ----- ------- Name: ELLEN ARIAS ?: 44 ?Age/Sex: 78/M ?Unit#: [id number] ? Loc: END ? Status: DEP CLI ?? Reg Date: 11/05/12 ? Pt.Phone Number: ? ----- ------- Specimen: [id number] ? STATUS: SOUT ?Spec Date:11/05/12 ? Physician Copies: ?Eleazar Ladd MD ? Tissues: A ?? Gastrointestinal Tract (PROX ASCENDING) ?Ashkan,Clarissa ? CPT: 27499 ?? Units: ??1 ?FINAL DIAGNOSIS ? Proximal ascending colon, polyp, biopsy; ? - Tubulovillous adenoma fragments. ? GROSS DESCRIPTION ? Received in formalin labeled with the patient's name and polyp proximal ? ascending are six mucosal fragments ranging from 0.2 to 0.3 cm, e.s. following ? additional fixation in Bouin's. ??CP ?? PREOP DX/CLINICAL HISTORY ?History of polyps. Signed ____(signature on file)____ Trista Chavis M.D. 11/08/12 By the signature above, the attending physician certifies that he/she has personally conducted a gross and/or microscopic examination of the described specimens and rendered or confirmed the above diagnosis. Test Performed by [facility], [address] [place] [address] Binder Stripper Machine: Trista Chavis MD PHD ----- ------- Eleazar Ladd MD PATHOLOGY ORDERABLES [facility] documented in this encounter Visit Diagnoses Not on filedocumented in this encounter Care Teams Multiple Knife Edge Trimmer Operator Relationship Specialty Start Date End Date Clarissa Luther MD [address] [place] [phone] PCP - General 08/27/08 documented as of this encounter
--- OUTSIDE RECORDS SUMMARY | 2024-03-05 15:25 | XMS_ITS | Encounter Summary ---
Author Organization [facility] Address [address] [place] [address] Care Team Providers Care Dealer Account Manager Name Role Phone Clarissa Luther MD Primary Care Provider [phone] Reason for Visit * Reason Onset Date Comments Testing 04/15/2020 MRI Encounter Details Date Type Department Care Team (Late st Contact Info) Description 04/15/2020 Telephone [facility] Urology - [address] [address] Terry Martinez MD [address] [place] [address], [address] [place] [address] Testing (MRI) Social History Tobacco Use Types Packs/Day Years [...] * Telephone Encounter - Sade Alvarado - 04/20/2020 1037 EST Spoke to patient whose MRI was rescheduled to 05/17, patient to call radiology to see if he can be scheduled in April. * Telephone Encounter - Ammon Agee - 04/15/2020 1113 EST Patient calling to ask Sade if order of MRI can be sent to [facility] as long as they can get him scheduled for before 05/07/20. Please call back to advise. documented in this encounter Plan of Treatment Upcoming Encounters Date Type Department Care Team (Late st Contact Info) Description 03/24/2024 9:30 EST Appointment [facility] Endoscopy [address] [place] [address] Eleazar Ladd MD [facility] [address] [place] [phone] 06/11/2024 11:30 EST Ancillary Procedure [facility] [address] [phone] 06/11/2024 12:00 EST Office Visit [facility] [address] [address]85[address] Terry Martinez MD 111 [facility], [address] [place] [phone] documented as of this encounter Visit Diagnoses Not on filedocumented in this encounter Care Teams Dealer Account Manager Relationship Specialty Start Date End Date Clarissa Luther MD [address] [place] [phone] PCP - General 08/27/08 documented as of this encounter
--- OUTSIDE RECORDS SUMMARY | 2024-03-05 15:25 | XMS_ITS | Encounter Summary ---
Author Organization [facility] Address [address] [place] [address] Care Team Providers Care Automatic Maintainer Name Role Phone Clarissa Luther MD Primary Care Provider [phone] Reason for Visit * Reason Comments Follow-up 6 Mo F/U MRI/PSA 09/23 Encounter Details Date Type Department Care Team (Late st Contact Info) Description 05/20/2020 10:30 EST [facility] Visit [facility] Urology - [address] [phone] Terry Martinez MD 111 [facility], [address] [place] [address] Renal cyst (Primary Dx); Prostate cancer ([facility]) Social History Tobacco Use Types Packs/Day [...] Progress Notes * Terry Martinez MD - 05/20/2020 1030 EST 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 - bilateral (retention after) Last seen 08/2012 [facility] attending by hakeem HPI: Original w/u renal failure: 04/2020: Creatinine = 1.7 / last = 1.8 MR abdo - right Bosniak 4 renal cyst - 2.8 cm solid component smaller - stable /11/2019 - CT nahed - 3.3 cm very central right renal mass associated with very very large renal cyst / left LP Bosniak 2F cyst Min lower urinary tract symptoms (LUTS) - no I Q of L No BPH meds Nocturia x 2 Prior PVR = 0 cc's / last = 947 cc's PSA = 1.7 / prior = 0.2 - [...] cancer - prior BETH to 2011 - slight increase PSA but still BETH Prior history urinary retention Stable - right 2.8 cm small Bosniak 4 Simple left renal cyst - Bosniak 1 Stable CKD Stable ED - no longer wants to try URI - up to patient PLAN: F/U renal U/S / PSA in 6 months Discussion regarding anatomy and complexity - risk of right radical nephrectomy very possible - in light of CKD - active surveillance favored documented in this encounter Plan of Treatment Upcoming Encounters Date Type Department Care Team (Late st Contact Info) Description 03/24/2024 9:30 EST Appointment [facility] Endoscopy [address] [place] [address] Eleazar Ladd MD [facility] [address] [place] [phone] 06/11/2024 11:30 EST Ancillary Procedure [facility] [phone] 06/11/2024 12:00 EST Office Visit [address] [address] Terry Martinez MD 111 [facility], [address] [place] [address] documented as of this encounter Results * PSA TOTAL, DIAGNOSTIC (11/09/2020 10:13 EDT) PSA 2.1 0.0 - 6.5 ng/mL 11/09/2020 14:23 EDT [facility] Blood VENOUS BLOOD / Unknown Venipuncture / Unknown 11/09/2020 10:13 EDT 11/09/2020 10:57 EDT Narrative [facility] - 11/09/2020 14:23 EDT NOTE: Serum PSA concentration should not be interpreted as absolute evidence for the presence or absence of malignant disease. Assayed on Siemens ADVIA Centaur XPT using chemiluminescent technology.??Values obtained by using different assay methods cannot be used interchangeably. Terry Martinez MD CHEMISTRY & BLOOD GAS ORDERABLES [facility] [address] [place] [address] documented in this encounter Visit Diagnoses Diagnosis Renal cyst- Primary Unspecified congenital cystic kidney disease Prostate cancer (HCC-CMS) Malignant neoplasm of prostate documented in this encounter Care Teams Automatic Maintainer Relationship Specialty Start Date End Date Clarissa Luther MD [address] [place] [phone] PCP - General 08/27/08 documented as of this encounter
--- OUTSIDE RECORDS SUMMARY | 2024-03-05 15:25 | XMS_ITS | Encounter Summary ---
Author Organization [facility] Address [address] [place] [address] Care Team Providers Care Clinic Assistant Name Role Phone Clarissa Luther MD Primary Care Provider [phone] Encounter Details Date Type Department Care Team (Late st Contact Info) Description 11/11/[address] [facility] Lab - Main [place] [address] [place], [place] [phone] Clarissa Luther MD [address] [place] [phone] Social History Tobacco Use Types Packs/Day [...] Info) Description 03/24/2024 9:[address] [facility] Endoscopy [address] [place], [place] [address] Eleazar Ladd MD [facility] [address] [place] [address] 06/11/2024 11:30 EST Ancillary Procedure [facility]rology - [facility] [address] [place] [address] 06/11/2024 12:00 EST Office Visit [facility] - [facility] [address] [place], [place] [phone] Terry Martinez MD 111 [facility], [address] [place] [phone] documented as of this encounter Procedures Procedure Name Priority Date/Time Associated Diagnosis Comments BUN Routine 11/11/2019 15:47 EDT documented in this encounter Results * (ABNORMAL) BUN (11/11/2019 15:47 EDT) BUN - [facility](H) 10 - 26 mg/dL 11/11/2019 16:[address] [facility] 11/11/2019 15:4 7 EDT 11/11/2019 15:[address] [facility] - 11/11/2019 16:13 EDT Does PT Have a Latex Allergy? NO Clarissa Luther MD CHEMISTRY & BLOOD GA S ORDERABLES Performing Organization Address City/State/[facility] Co de Phone Number [facility] [address] [place] [address] documented in this encounter Visit Diagnoses Not on filedocumented in this encounter Care Teams Clinic Assistant Relationship Specialty Start Date End Date Clarissa Luther MD [address] [place] [address] PCP - General 08/27/08 documented as of this encounter
--- OUTSIDE RECORDS SUMMARY | 2024-03-05 15:25 | XMS_ITS | Encounter Summary ---
Author Organization [facility] Address [address] [place] [address] Care Team Providers Care Quality Control Scientist Name Role Phone Clarissa Luther MD Primary Care Provider [phone] Reason for Visit * Reason Onset Date Comments Appointment Related 05/18/2020 Returning Call 05/18/2020 Encounter Details Date Type Department Care Team (Late st Contact Info) Description 05/18/2020 Telephone [facility] Urology - [facility] [address] [place], [place] [phone] Terry Martinez MD 111 [facility], [address] [place] [address] Appointment Related; Returning Call Social History Tobacco Use Types Packs/Day Years [...] No 12/18/2019 Cognitive Status Response Date of Assess ent Because of a physical, menta l, or emotional condition, does this person have serious difficulty concentrating, remembering, or making decisions? No 12/18/2019 documented as of this encounter Miscellaneous Notes * Telephone Encounter - Sade Alvarado - 05/19/2020 1104 EST Spoke to Maria Elena and will set up a zoom appt with her and the patient's so that they are included in the appointment. Let Maria Elena know that the patient needs to indicate to us permission for this before it happens and that he should also have some documentation in his chart regarding permission todiscuss. * Telephone Encounter - Liss Webster - 05/18/2020 1700 EST Returning call to Sade, Please call before noon * Telephone Encounter - Sade Alvarado - 05/18/2020 1558 EST LM for Maria Elena to call back to discuss pt appt. documented in this encounter Plan of Treatment Upcoming Encounters Date Type Department Care Team (Late st Contact Info) Description 03/24/2024 9:30 EST Appointment [facility] Endoscopy [address] [place] [address] Eleazar Ladd MD [address] [place] [address] [address] [place] [phone] 06/11/2024 11:30 EST Ancillary Procedure [facility] U[address] [phone] 06/11/2024 12:00 EST Office Visit [address] [phone] Terry Martinez MD 111 [facility], [address] [place] [address] documented as of this encounter Visit Diagnoses Not on filedocumented in this encounter Care Teams Quality Control Scientist Relationship Specialty Start Date End Date Clarissa Luther MD [address] [place] [address] PCP - General 08/27/08 documented as of this encounter
--- OUTSIDE RECORDS SUMMARY | 2024-03-05 15:25 | XMS_ITS | Encounter Summary ---
Author Organization [facility] Address [address] [place] [address] Care Team Providers Care Sample Shoe Inspector And Reworker Name Role Phone Clarissa Ltuher MD Primary Care Provider [phone] Encounter Details Date Type Department Care Team (Late st Contact Info) Description 11/12/2019 Results Only Imaging [facility] Radiology Results [address] [place], [place] [id number] Clarissa Luther MD [address] [place] [address] Social History Tobacco Use Types Packs/Day [...] EST Appointment [facility] Endoscopy [address] [place], [place] [id number] Eleazar Ladd MD [facility] [address] [place] [address] 06/11/2024 11:30 EST Ancillary Procedure [facility] Urology - [address] [place] [address] [place] [address] 06/11/2024 12:00 EST Office Visit [facility] Urology - [facility] [address] [place] [address] Terry Martinez MD [address] [facility], [address] [place] [phone] documented as of this encounter Procedures Procedure Name Priority Date/Time Associated Diagnosis Comments CT ABDOMEN PELVIS W WO CONTRAST 11/12/2019 11:06 EDT documented in this encounter Results * CT ABDOMEN PELVIS W WO CONTRAST (11/12/2019 11:06 EDT) Anatomical Region Laterality Modality Body, Abdomen, Pelvis, Abdomen and Pelvis Computed Tomography 11/12/2019 11:0 3 EDT Narrative 11/12/2019 11:06 EDT ? EXAM: CAT SCAN/ABDOMEN PELVIS W/WO CONTRA EX. D/ (1711) ? CLINICAL INFORMATION: ? N28.89 RENAL MASS ? WORSENING RF, (GFR 36), EVAL ? MASS RIGHT KIDNEY ? NOTED ON RECENT U/S @ [facility] ? ABDOMEN PELVIS W/WO CONTRAST ? Signs and Symptoms/Comments: ??N28.89 RENAL MASS, WORSENING RF, (GFR ? 36), EVAL ? MASS RIGHT KIDNEY, NOTED ON RECENT U/S @ [facility] ? Comparison: CT 06/06/2007 [facility]. Ultrasound 10/28/2019 [facility] ? [facility]. ? Technique: CT abdomen and pelvis was performed with the ? administration of 100 mL Omnipaque 350 contrast. Multiplanar ? reconstructions were performed. ? FINDINGS: ? Visible Chest: The visible lung bases are unremarkable. ? Solid Organs: Several tiny nonenhancing low-attenuation hepatic foci ? are seen likely reflecting small cysts. Hepatic size is ? unremarkable.. No intra or extrahepatic biliary ductal dilatation is ? present. The gallbladder is normal. The pancreas is normal. There is ? a 1 cm cyst in the upper splenic parenchyma. The spleen is otherwise ? unremarkable.. There is a fat density 1.3 cm right adrenal nodule, ? consistent with an adenoma. The left adrenal gland is normal in ? appearance.. ? Multiple bilateral renal cysts are seen. This includes a 20 cm cyst ? extending anteriorly from the mid/lower pole of the left kidney. ? Along the medial surface of this cystic lesion, there is a oval ? enhancing soft tissue nodule measuring 3.3 x 2.3 x 2.3 cm (series 9 ? image 53). Additional simple cysts are seen within the right renal ? parenchyma including a upper pole 2.5 cm cyst (series 9 image 42). ? Within the lower pole the left kidney, there is a 3.2 x 3.8 x 3.2 cm ? cyst (series 14 image 64), with a thin enhancing rim. No ? nephrolithiasis is seen. No hydronephrosis is noted. ? Bowel, Peritoneal Cavity ?? Body Wall: The stomach is normal. The ? small bowel is normal without evidence of obstruction. The colon is ? unremarkable. No intraperitoneal free fluid or free air is present. ? The body wall is unremarkable. ? Pelvis: The bladder is normal. No pelvic mass is present. ? Lymphovascular: No enlarged abdominal or pelvic lymph nodes are ? present. The major vascular structures are unremarkable. ? Bones: The osseous structures are unremarkable. ? IMPRESSION: ? 1. Large 20 cm right renal cyst, with an enhancing 3.3 cm mass along ? PAGE 1 ? Signed Report ? (CONTINUED) ? the medial margin (series 9 image 53). This appearance is worrisome ? for malignancy. Urologic consultation is recommended. ? 2. Numerous bilateral renal simple cysts are seen. At the lower pole ? the left kidney, there is an exophytic 3.8 cm cyst with a thin ? enhancing rim, best characterized as a Bosniak 2F lesion. A six-month ? follow-up study is recommended to ensure stability. ? 3. Hepatic and splenic cysts. ? 4. Right adrenal adenoma. ? REPORT SIGNED IN OTHER VENDOR SYSTEM 11/12/2019 ?Reported By: Ammon Mera MD ? CC: ? Transcribed Date/Time: 11/12/2019 (1106) ? Systems Analysis Manager: ? Printed Date/Time: 11/12/2019 (1106) ? PAGE 2 ? Signed Report ? Procedure Note Ammon Mera MD - 11/12/2019 EXAM: CAT SCAN/ABDOMEN PELVIS W/WO CONTRA EX. D/ (1711) CLINICAL INFORMATION: N28.89 RENAL MASS WORSENING RF, (GFR 36), EVAL ? MASS RIGHT KIDNEY NOTED ON RECENT U/S @ [facility] ABDOMEN PELVIS W/WO CONTRAST Signs and Symptoms/Comments: N28.89 RENAL MASS, WORSENING RF, (GFR 36), EVAL ? MASS RIGHT KIDNEY, NOTED ON RECENT U/S @ [facility] Comparison: CT 06/06/2007 [facility]. Ultrasound 10/28/2019 [facility]. Technique: CT abdomen and pelvis was performed with the administration of 100 mL Omnipaque 350 contrast. Multiplanar reconstructions were performed. FINDINGS: Visible Chest: The visible lung bases are unremarkable. Solid Organs: Several tiny nonenhancing low-attenuation hepaticfoci are seen likely reflecting small cysts. Hepatic size is unremarkable.. No intra or extrahepatic biliary ductal dilatationis present. The gallbladder is normal. The pancreas is normal. Thereis a 1 cm cyst in the upper splenic parenchyma. The spleen isotherwise unremarkable.. There is a fat density 1.3 cm right adrenal nodule, consistent with an adenoma. The left adrenal gland is normal in appearance.. Multiple bilateral renal cysts are seen. This includes a 20 cm cyst extending anteriorly from the mid/lower pole of the left kidney. Along the medial surface of this cystic lesion, there is a oval enhancing soft tissue nodule measuring 3.3 x 2.3 x 2.3 cm (series 9 image 53). Additional simple cysts are seen within the right renal parenchyma including a upper pole 2.5 cm cyst (series 9 image 42). Within the lower pole the left kidney, there is a 3.2 x 3.8 x 3.2cm cyst (series 14 image 64), with a thin enhancing rim. No nephrolithiasis is seen. No hydronephrosis is noted. Bowel, Peritoneal Cavity Body Wall: The stomach is normal. The small bowel is normal without evidence of obstruction. The colon is unremarkable. No intraperitoneal free fluid or free air is present. The body wall is unremarkable. Pelvis: The bladder is normal. No pelvic mass is present. Lymphovascular: No enlarged abdominal or pelvic lymph nodes are present. The major vascular structures are unremarkable. Bones: The osseous structures are unremarkable. IMPRESSION: 1. Large 20 cm right renal cyst, with an enhancing 3.3 cm massalong PAGE 1 Signed Report (CONTINUED) the medial margin (series 9 image 53). This appearance is worrisome for malignancy. Urologic consultation is recommended. 2. Numerous bilateral renal simple cysts are seen. At the lowerpole the left kidney, there is an exophytic 3.8 cm cyst with a thin enhancing rim, best characterized as a Bosniak 2F lesion. Asix-month follow-up study is recommended to ensure stability. 3. Hepatic and splenic cysts. 4. Right adrenal adenoma. REPORT SIGNED IN OTHER VENDOR SYSTEM 11/12/2019 Reported By: Ammon Mera MD CC: Transcribed Date/Time: 11/12/2019 (4050) Systems Analysis Manager: Printed Date/Time: 11/12/2019 (5099) PAGE 2 Signed Report Clarissa Luther MD IMG CT ORDERABLES documented in this encounter Visit Diagnoses Not on filedocumented in this encounter Care Teams Sample Shoe Inspector And Reworker Relationship Specialty Start Date End Date Clarissa Luther MD [address] [place] [phone] PCP - General 08/27/08 documented as of this encounter
--- OUTSIDE RECORDS SUMMARY | 2024-03-05 15:25 | XMS_ITS | Encounter Summary ---
Author Organization [facility] Address [address] [place] [address] Care Team Providers Care Sr. Manager Corporate Communications Name Role Phone Clarissa Luther MD Primary Care Provider [phone] Encounter Details Date Type Department Care Team (Late st Contact Info) Description 12/03/2019 Results Only [facility] Nephrology - [address] [id number] Tristin Main MD [address] [place] [address], [address] [place] [address] Social History Tobacco Use Types [...] Contact Info) Description 03/24/2024 9:30 EST Appointment [facility] Endoscopy [address] [place], [place] [address] Eleazar Ladd MD [facility] [address] [place] [address] 06/11/2024 11:30 EST Ancillary Procedure [facility] Urology - Main [place] [address] [place], [place] [phone] 06/11/2024 12:00 EST Office Visit [facility] - [facility] [address] [place], [place] [address] Terry Martinez MD [address] [facility], [address] [place] [address] documented as of this encounter Procedures Procedure Name Priority Date/Time Associated Diagnosis Comments URINALYSIS - [facility] Routine 12/03/2019 6:2 7 EDT COMPLETE BLOOD COUNT WITH DIFFERENTIAL (AUTO) Routine 12/03/2019 6:26 EDT BUN Routine 12/03/2019 6:26 EDT PHOSPHORUS Routine 12/03/2019 6:26 EDT CREATININE Routine 12/03/2019 6:26 EDT CALCIUM Routine 12/03/2019 6:26 EDT ALBUMIN Routine 12/03/2019 6:26 EDT ELECTROLYTES Routine 12/03/2019 6:26 EDT documented in this encounter Results * URINALYSIS - [facility] (12/03/2019 6:27 EDT) URINE APPEARANCE - [facility] Clear CLEAR 12/03/2019 7:[address] [facility] URINE BILIRUBIN - DIPSTICK - [facility] Negative NEGATIVE 12/03/2019 7:[address] [facility] URINE BLOOD - [facility] Negative NEG 12/03/2019 7:[address] [facility] URINE COLOR - [facility] Yellow YELLOW 12/03/2019 7:[address] [facility] URINE GLUCOSE - DIPSTICK - [facility] Negative NEGATIVE 12/03/2019 7:[address] [facility] URINE KETONE - [facility] Negative NEGATIVE 12/03/2019 7:[address] [facility] URINE LEUK ESTERASE - [facility] Negative NEG 12/03/2019 7:[address] [facility] URINE NITRITE - [place] - [facility] Negative NEG 12/03/2019 7:[address] [facility] URINE PH - [facility] 5.5 4.0 - 8.0 0 [facility] PR[facility] - [facility] - [facility] Negative NEG 12/03/2019 7:[address] [facility] URINE SPECIFIC GRAVITY - [facility] 1.020 1.001 - 1.035 12/03/2019 7:57 [facility] URINE UROBILINOGEN - [place] - [facility] 0.2 0.2 - 1.0 12/03/2019 7:57 [facility] 12/03/2019 6:27 EDT 12/03/2019 6:27 EDT [facility] - 12/03/2019 7:57 EDT Does PT Have a Latex Allergy? NO Tristin Main MD CHEMISTRY & B LOOD GAS ORDERABLES Performing Organization Address City/State/[facility] Co de Phone Number [facility] [address] [place] [address] * (ABNORMAL) COMPLETE BLOOD COUNT WITH DIFFERENTIAL (AUTO) (12/03/2019 6:26 EDT) Gran # 3.5 2.2 - 8.85 10e3/uL 12/03/2019 8:[address] [facility] BASO # - [facility] 0.05 0.01 - 0.11 10e/uL 12/03/2019 8:[address] [facility] BASO % - [facility] 1 0 - 2 % 12/03/2019 8:[address] [facility] EOS # - [facility] 0.49 0.03 - 0.61 10e3/ul [facility]2019 [facility] - [facility] 8(H) 0 - 5 % 12/03/2019 8:[address] [facility] GRAN % - [facility] 59.0 40 - 80 % 12/03/2019 8:21 [facility] HEMATOCRIT - [facility] 43.2 39.5 - 50.2 % 12/03/2019 8:21 [facility] HEMOGLOBIN - [facility] 14.2 13.8 - 17.3 g/dl 12/03/2019 8:21 [facility] IG# - [facility] 0.03 0 - 0.7 10e3/uL 12/03/2019 8:21 [facility] IG% - [facility] 0.5 0 - 0.9 % 12/03/2019 8:21 [facility] LYMPH # - [facility] 1.1 1.09 - 3.3 10e3/ul 12/03/2019 8:21 [facility] LYMPH% - [facility] 18.9(L) 20 - 40 % 12/03/2019 8:21 [facility] MEAN CORPUSCULAR HGB - [facility] 29.3 27.6 - 33.0 pg 12/03/2019 8:21 [facility] MEAN CORPUSCULAR HGB CONC - [facility] 32.9 32.8 - 36.4 g/dL 12/03/2019 8:21 [facility] MEAN CELL VOLUME - [facility] 89.1 81 - 95 fl 12/03/2019 8:21 [facility] MONO # - [facility] 0.7 0.1 - 0.8 10e3/uL 12/03/2019 8:21 [facility] MONO% - [facility] 12.3(H) 0 - 12 % 12/03/2019 8:21 [facility] PLATELET COUNT 219 141 - 377 10e3/ul 12/03/2019 8:21 [facility] RED BLOOD COUNT - [facility] 4.85 4.36 - 5.78 10e3/ul 12/03/2019 8:21 [facility] RED CELL DISTRI WIDTH - [facility] 14.4 <14.2 % 12/03/2019 8:21 [facility] WHITE BLOOD COUNT - [facility] 5.9 4.0 - 10.4 10e3/ul 12/03/2019 8:[address] [facility] 12/03/2019 6:26 EDT 12/03/2019 6:26 EDT [facility] - 12/03/2019 8:21 EDT Does PT Have a Latex Allergy? NO Tristin Main MD HEMATOLOGY & PF4 ORDERABLES Performing Organization Address [facility]/ZIP Co de Phone Number [facility] [address] [place] [address] * PHOSPHORUS (12/03/2019 6:26 EDT) PHOSPHOROUS - CV 3.5 2.5 - 4.5 mg/dL 12/03/2019 8:[address] [facility] 12/03/2019 6:26 EDT 12/03/2019 6:26 EDT [facility] - 12/03/2019 8:06 EDT Does PT Have a Latex Allergy? NO Tristin Main MD CHEMISTRY & B LOOD GAS ORDERABLES Performing Organization Address [facility] Co de Phone Number [facility] [address] [place] [address] * (ABNORMAL) ELECTROLYTES (12/03/2019 6:26 EDT) Chloride 104 96 - 110 mmol/L 12/03/2019 8:[address] [facility] CO2 Total 28 21 - 32 mEq/L 12/03/2019 8:[address] [facility] Anion Gap 5 0 - 18 12/03/2019 8:[address] [facility] Potassium 5.2(H) 3.5 - 5.0 mEq/L 12/03/2019 8:[address] [facility] Sodium 137 136 - 145 mEq/L 12/03/2019 8:[address] [facility] 12/03/2019 6:26 EDT 12/03/2019 6:26 EDT [facility] - 12/03/2019 8:06 EDT Does PT Have a Latex Allergy? NO Tristin Main MD CHEMISTRY & B LOOD GAS ORDERABLES Performing Organization Address [facility] de Phone Number [facility] [address] [place] [address] * (ABNORMAL) CREATININE (12/03/2019 6:26 EDT) [facility] CREATININE 1.68(H) 0.66 - 1.25 mg/dL 12/03/2019 8:[address] [facility] eGFR 40 12/03/2019 8:[address] [facility] Comment: Stage 3: Moderate renal impairment is defined as GFR 30-59 Multiply result by 1.210 for patients. 12/03/2019 6:26 EDT 12/03/2019 6:26 EDT [facility] - 12/03/2019 8:06 EDT Does PT Have a Latex Allergy? NO Tristin Main MD CHEMISTRY & B LOOD GAS ORDERABLES Performing Organization Address [facility] Phone Number [facility] [address] [place] [address] * CALCIUM (12/03/2019 6:26 EDT) [facility] CALCIUM [facility] 9.3 8.5 - 10.5 mg/dL 12/03/2019 8:[address] [facility] 12/03/2019 6:26 EDT 12/03/2019 6:26 EDT [facility] - 12/03/2019 8:06 EDT Does PT Have a Latex Allergy? NO Tristin Main MD CHEMISTRY & B LOOD GAS ORDERABLES Performing Organization Address [facility] Co de Phone Number [facility] [address] [place] [address] * (ABNORMAL) BUN (12/03/2019 6:26 EDT) [facility] BUN [facility] 33(H) 10 - 26 mg/dL 12/03/2019 8:[address] [facility] 12/03/2019 6:26 EDT 12/03/2019 6:[address] [facility] - 12/03/2019 8:06 EDT Does PT Have a Latex Allergy? NO Tristin Main MD CHEMISTRY & B LOOD GAS ORDERABLES Performing Organization Address City/[facility]/ZIP Co de Phone Number [facility] [address] [place] [address] * ALBUMIN (12/03/2019 6:26 EDT) Albumin % 4.1 3.4 - 4.9 g/dL 12/03/2019 8:[address] [facility] 12/03/2019 6:26 EDT 12/03/2019 6:[address] [facility] - 12/03/2019 8:06 EDT Does PT Have a Latex Allergy? NO Tristin Main MD CHEMISTRY & B LOOD GAS ORDERABLES Performing Organization Address [facility] de Phone Number [facility] [address] [place] [phone] documented in this encounter Visit Diagnoses Not on filedocumented in this encounter Care Teams Sr. Manager Corporate Communications Relationship Specialty Start Date End Date Clarissa uLther MD [address] [place] [phone] PCP - General 08/27/08 documented as of this encounter
--- OUTSIDE RECORDS SUMMARY | 2024-03-05 15:25 | XMS_ITS | Encounter Summary ---
Author Organization [facility] Address [address] [place] [address] Care Team Providers Care Laborer High Density Press Name Role Phone Clarissa Luther MD Primary Care Provider [phone] Reason for Referral * (Routine) - Closed Specialty Diagnoses / Procedures Referred By Shane lanza Referred To Contact Diagnoses Malignant tumor of prostate (HCC-CMS) Procedures PSA Dank Warner MD [address] [place] [phone] Referral ID Status Reason Start Date Expiration Date Visits Re quested Visits Authorized [id number] Closed 08/22/2013 1 1 Reason for Visit * Reason Comments Prostate Cancer Follow up Encounter Details Date Type Department Care Team (Late st Contact Info) Description 08/22/2013 10:30 EDT Office Visit [facility] Radiation Oncology - [address] [phone] Dank Warner MD [address] [place] [phone] Malignant tumor of prostate (CMS-HCC) (HCC-CMS) (Primary Dx) Social History Tobacco Use [...] Sign Reading Time Taken Comments Blood Pressure - - Pulse - - Temperature - - Respiratory Rate - - Oxygen Saturation - - Inhaled Oxygen Concentration - - Weight 88.5 kg (195 lb) 08/22/2013 1010 EDT Height - - Body Mass Index 27.2 01/09/2012 1257 EDT documented in this encounter Progress Notes * Prabha Warner MD - 08/22/2013 1116 EDT DIVISION OF RADIATION ONCOLOGY FOLLOW-UP NOTE DATE OF SERVICE: 08/22/2013 DIAGNOSIS AND STAGE: T2a, PSA 7.2, [place] score 3+4=7 (intermediate risk) 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 REGION TREATED: Prostate INTERVAL SINCE RADIATION THERAPY: Five years and 10 months SUBJECTIVE: Mr. Schumacher returns to the office today he has minimal symptoms, his IPSS is 5. He has had no hematuria. His bowel habits are normal, he has no hematochezia. He does have erectile dysfunction. He has no new localizing bone pain. His appetite and energy are good. He has not had a PSAdrawn in the last year. MEDICATIONS: Current Outpatient Prescriptions Medication Sig Dispense Refill ??? albuterol (ACCUNEB) 1.25 mg/3 mL nebulizer solution Inhale 1.25 mg as directed every 4 hours asneeded. No current facility-administered medications for this visit. OBJECTIVE: Weight : 88.451 kg (195 lb) Pain Score: 0 - No pain General: Very pleasant and cooperative man in no acute distress. HEENT: Unremarkable. Neck: Supple.Nodes: No palpable cervical, supra-clavicular or axillary adenopathy. Back: Nontender to percussion. Lungs: Clear to auscultation. Heart: Regular rhythm. Rectal: Normal sphincter tone. The prostate is smooth, flat without nodularity or evidence. IMPRESSION AND PLAN: Mr. Schumacher continues to do well, I did give him a laboratory slip to takewith him so he will get a PSA drawn within the next week or so. I have not scheduled him for any further followup with me. He will continue routine seen Dr. Luther. I recommended annual PSA values obtained, certainly would be happy to discuss questions or concerns he may have in the future as indicated. Prabha WARNER MD This note has been prepared with voice recognition software. Please excuse magnetic observer errors. documented in this encounter Plan of Treatment Upcoming Encounters Date Type Department Care Team (Late st Contact Info) Description 03/24/2024 9:[address] [facility] Endoscopy [address] [place] [address] Eleazar Ladd MD [address] [place] [address] [address] [place] [phone] 06/11/2024 11:30 EST Ancillary Procedure [facility] Urolog[address] [address] 06/11/2024 12:00 EST Office Visit [address] [phone] Terry Martinez MD [address] [place] [address], [address] [place] [phone] Scheduled Orders Name Type Priority Associated Diagnoses Orde r Schedule PSA Lab Routine Malignant Tumor of Prostate (CMS-HCC) ([facility]) Ordered: 08/22/2013 documented as of this encounter Visit Diagnoses Diagnosis Malignant tumor of prostate (HCC-CMS)- Primary Malignant neoplasm of prostate documented in this encounter Discontinued Medications Medication Sig Discontinue Reason Start Date End Da te tamsulosin (FLOMAX) 0.4 mg capsule Take 1 Cap by mouth daily. 08/01/2012 08/22/2013 tamsulosin (FLOMAX) 0.4 mg capsule Take 1 Cap by mouth daily. 08/12/2012 08/22/2013 documented as of this encounter Care Teams Laborer High Density Press Relationship Specialty Start Date End Date Clarissa Luther MD [address] [place] [phone] PCP - General 08/27/08 documented as of this encounter
--- OUTSIDE RECORDS SUMMARY | 2024-03-05 15:25 | XMS_ITS | Encounter Summary ---
Author Organization [facility] Address [address] [place] [address] Care Team Providers Care Production Clerks Supervisor Name Role Phone Clarissa Luther MD Primary Care Provider [phone] Encounter Details Date Type Department Care Team (Late st Contact Info) Description 12/05/2019 Abstract [facility] Nephrology - [address] [address] Tristin Main MD [address] [place] [address], Level 2 [place] [address] Social History Tobacco Use Types [...] Description 03/24/2024 9:30 EST Appointment [facility] Endoscopy [address], [place] [id number] Eleazar Ladd MD [facility] [address] [place] [address] 06/11/2024 11:30 EST Ancillary Procedure [facility] Urology - Main [place] [address] [place] [address] 06/11/2024 12:00 EST Office Visit [facility] Urology - [facility] [address], [place] [address] Terry Martinez MD 111 [facility], Level 5 [place] [phone] documented as of this encounter Procedures Procedure Name Priority Date/Time Associated Diagnosis Comments BASIC METABOLIC PANEL (BMP) Routine 10/05/2017 documented in this encounter Results * BASIC METABOLIC PANEL (BMP) (10/05/2017) GFR, Calculated, External 44.26 EXTERNAL LAB Glucose, Serum, External 89 EXTERNAL LAB Calculated Calcium, External EXTERNAL LAB BUN, External 30 EXTERNAL LAB Calcium, External 8.9 EXTERNAL LAB Chloride, External 105 EXTERNAL LAB CO2, External 29.1 EXTERNAL LAB Creatinine, External 1.54 EXTERNAL LAB Fasting?, External EXTERNAL LAB Potassium, External 4.7 EXTERNAL LAB Sodium, External 145 EXTERNAL LAB Blood VENOUS BLOOD / Unknown 10/05/2017 Historical Provider CHEMISTRY & BLOOD GAS ORDERABLES EXTERNAL LAB documented in this encounter Visit Diagnoses Not on filedocumented in this encounter Care Teams Production Clerks Supervisor Relationship Specialty Start Date End Date Clarissa Luther MD [address] [place] [address] PCP - General 08/27/08 documented as of this encounter
--- OUTSIDE RECORDS SUMMARY | 2024-03-05 15:25 | XMS_ITS | Encounter Summary ---
Author Organization [facility] Address [address] [place] [address] Care Team Providers Care Labor Mediator Name Role Phone Clarissa Luther MD Primary Care Provider [phone] Reason for Visit * Reason Onset Date Comments Referral Request 11/06/2019 Encounter Details Date Type Department Care Team (Late st Contact Info) Description 11/06/[address] [facility] Nephrology - [address] [address] Codie Beltre RN [address] [place] [phone] Referral Request Social History Tobacco Use Types Packs/Day Years [...] encounter Miscellaneous Notes * Telephone Encounter - Codie Beltre RN - 11/06/2019 1514 EDT Re-review with Dr. White he will see pt at the end of November. * Telephone Encounter - Codie Beltre RN - 11/06/2019 1111 EDT Review of referral packet for referral. Will refer back to PCP for urology consult preferred for this pt. Note that we will see pt after urology. T/c back from PCP today to re-refer pt for consult. Will collect office notes, lab results and will receive up coming CT that they have orders not doneyet. Will have Evelia resend packet for review for appt. pending documented in this encounter Plan of Treatment Upcoming Encounters Date Type Department Care Team (Late st Contact Info) Description 03/24/2024 9:30 EST Appointment [facility] Endoscopy [address] [place] [address] Eleazar Ladd MD [facility] [address] [place] [phone] 06/11/2024 11:30 EST Ancillary Procedure [address] [id number] 06/11/2024 12:00 EST Office Visit [address] 267[address] Terry Martinez MD [address] [place] [address], Level 5 [place] [address] documented as of this encounter Visit Diagnoses Not on filedocumented in this encounter Care Teams Labor Mediator Relationship Specialty Start Date End Date Clarissa Luther MD [address] [place] [phone] PCP - General 08/27/08 documented as of this encounter
--- OUTSIDE RECORDS SUMMARY | 2024-03-05 15:25 | XMS_ITS | Encounter Summary ---
Author Organization [facility] Address [address] [place] [address] Care Team Providers Care Plating Machine Operator Name Role Phone Clarissa Luther MD Primary Care Provider [phone] Encounter Details Date Type Department Care Team (Latest Contact Info) Description 04/26/2020 Travel Social History Tobacco Use Types Packs/Day [...] Description 03/24/2024 9:30 EST Appointment [facility] Endoscopy [address] [place] [address] Eleazar Ladd MD [address] [place] [address] [address] [place] [phone] 06/11/2024 11:30 EST Ancillary Procedure [address] [address] 06/11/2024 12:00 EST Office Visit [address] 376791 Terry Martinez MD [address] [place] [address], [address] [place] [address] documented as of this encounter Visit Diagnoses Not on filedocumented in this encounter Care Teams Plating Machine Operator Relationship Specialty Start Date End Date Clarissa Luther MD [address] [facility] [place] [address] PCP - General 08/27/08 documented as of this encounter
--- OUTSIDE RECORDS SUMMARY | 2024-03-05 15:25 | XMS_ITS | Encounter Summary ---
Author Organization [facility] Address [address] [place] [address] Care Team Providers Care Head Housekeeper Name Role Phone Clarissa Luther MD Primary Care Provider [phone] Reason for Visit * Reason Onset Date Comments Appointment Related 04/02/2020 reschedule 1 06/13 Appointment Related 04/02/[address] Haydee Martinez Follow-up 04/05/2020 Encounter Details Date Type Department Care Team (Late st Contact Info) Description 04/02/2020 Telephone [facility] Urology - [facility] [address] [place], [place] [phone] Terry Martinez MD 111 [facility], Level 5 [place] [address] Appointment Related (reschedule 04/12); Appointment Related (12.[address] Martinez); Follow-up Social History Tobacco Use Types Packs/Day [...] * Telephone Encounter - Sade Alvarado - 04/05/2020 1327 EST Spoke to patient and let him know that we are unable to reschedule radiology appointments at this time. Patient has already had PSA drawn 02/08. Offered pt to keep 04/12 appt to review PSA, pt will wait until May to see if he will be able to schedule MRI. Pt appt with Dr Martinez rescheduled to 05/20 * Telephone Encounter - Abbey Krishnamurthy - 04/05/2020 1152 EST Patient calling again; please call as soon as possible * Telephone Encounter - Pauline Galvan - 04/02/2020 1416 EST Per patient, the 12.2 MRI has been cancelled. Per patient, wondering if the 12.[address] Martinez will need to be rescheduled as well due to it was a FUR to the 12.2 MRI. Patient requesting a call back when a moment to confirm what he should be doing. * Telephone Encounter - Abbey Krishnamurthy - 04/02/2020 1320 EST MRI was cancelled, [facility] system still down; please call as soon as possible to reschedule documented in this encounter Plan of Treatment Upcoming Encounters Date Type Department Care Team (Late st Contact Info) Description 03/24/2024 9:30 EST Appointment [facility] Endoscopy [address] [place] [address] Eleazar Ladd MD [address] [place] [address] [address] [place] [phone] 06/11/2024 11:30 EST Ancillary Procedure [address] 177661 06/11/2024 12:00 EST Office Visit [address] [phone] Terry Martinez MD [address] [place] [address], [address] [place] [address] documented as of this encounter Visit Diagnoses Not on filedocumented in this encounter Care Teams Head Housekeeper Relationship Specialty Start Date End Date Clarissa Luther MD [address] [place] [phone] PCP - General 08/27/08 documented as of this encounter
--- OUTSIDE RECORDS SUMMARY | 2024-03-05 15:25 | XMS_ITS | Encounter Summary ---
Author Organization [facility] Address [address] [place] [address] Care Team Providers Care Larry Operator Name Role Phone Clarissa Luther MD Primary Care Provider [phone] Encounter Details Date Type Department Care Team (Latest Contact Info) Description 05/28/2018 15:28 EST - 05/28/2018 23:59 EST Hospital Encounter [address] [address] Unknown, Provider, Discharge Disposition: Home or Self Care Social [...] Code Departure Means Destination Home or Self [facility] documented in this encounter Plan of Treatment Upcoming Encounters Date Type Department Care Team (Late st Contact Info) Description 03/24/2024 9:30 EST Appointment [facility] Endoscopy [address] [place] [address] Eleazar Ladd MD [address] [place] [address] [address] [place] [address] 06/11/2024 11:30 EST Ancillary Procedure [address] [address] 06/11/2024 12:00 EST Office Visit [address] 714[address] Terry Martinez MD [address] [place] [address], [address] [place] [phone] documented as of this encounter Visit Diagnoses Not on filedocumented in this encounter Care Teams Larry Operator Relationship Specialty Start Date End Date Clarissa Luther MD [address] [place] [phone] PCP - General 08/27/08 documented as of this encounter
--- OUTSIDE RECORDS SUMMARY | 2024-03-05 15:25 | XMS_ITS | Encounter Summary ---
Author Organization [facility] Address [address] [place] [address] Care Team Providers Care Qa Tech Name Role Phone Clarissa Luther MD Primary Care Provider [phone] Encounter Details Date Type Department Care Team (Latest Contact Info) Description 12/18/2019 Travel Social History Tobacco Use Types Packs/Day [...] Contact Info) Description 03/24/2024 9:30 EST Appointment [facility] Endoscopy [address] [place] [address] Eleazar Ladd MD [address] [place] [address] [address] [place] [phone] 06/11/2024 11:30 EST Ancillary Procedure [address] [address]34[address] 06/11/2024 12:00 EST Office Visit [address] 003231 Terry Martinez MD [address] [place] [address], [address] [place] [address] documented as of this encounter Visit Diagnoses Not on filedocumented in this encounter Care Teams Qa Tech Relationship Specialty Start Date End Date Clarissa Luther MD 4 [place] [phone] PCP - General 08/27/08 documented as of this encounter
--- OUTSIDE RECORDS SUMMARY | 2024-03-05 15:25 | XMS_ITS | Encounter Summary ---
Author Organization [facility] Address [address] [place] [address] Care Team Providers Care Recooperer Name Role Phone Clarissa Luther MD Primary Care Provider [phone] Reason for Visit * (Routine) - Receiving Office to Obtain Authorization Specialty Diagnoses / Procedures Referred By Shane lanza Referred To Contact Procedures CT OUTSIDE IMAGES BODY Unknown, Provider, Referral ID Status Reason Start Date Expiration Date Visits Requested Visits Authorized [id number] Receiving Office to Obtain Authorization 12/05/2019 1 1 Encounter Details Date Type Department Care Team (Latest Contact Info) Description 11/11/2019 - 11/11/2019 23:59 EDT Hospital Encounter [facility] Radiology - Main [place] [address] [place] [address] Discharge Disposition: Home or Self Care Social [...] Contact Info) Description 03/24/2024 9:30 EST Appointment [facility] Endoscopy [address] [place] [address] Eleazar Ladd MD [facility] Hospital [address] [place] [phone] 06/11/2024 11:30 EST Ancillary Procedure [facility] [address] [phone] 06/11/2024 12:00 EST Office Visit [facility] [address] [phone] Terry Martinez MD 111 [facility], Level [address] [place] [address] documented as of this encounter Procedures Procedure Name Priority Date/Time Associated Diagnosis Comments CT OUTSIDE IMAGES BODY Routine 12/05/2019 17:07 EDT documented in this encounter Results * CT OUTSIDE IMAGES BODY (12/05/2019 17:07 EDT) Narrative [facility] - 12/05/2019 17:07 EDT This is a non-reportable exam. Provider Unknown MD [facility] OTHER IMAGING OR DERABLES Performing Organization Address City/State/[facility] Co de Phone Number [facility] documented in this encounter Visit Diagnoses Not on filedocumented in this encounter Care Teams Recooperer Relationship Specialty Start Date End Date Clarissa Luther MD [address] [place] [address] PCP - General 08/27/08 documented as of this encounter
--- OUTSIDE RECORDS SUMMARY | 2024-03-05 15:25 | XMS_ITS | Encounter Summary ---
Author Organization [facility] Address [address] [place] [address] Care Team Providers Care Motion Graphics Designer Name Role Phone Clarissa Luther MD Primary Care Provider [phone] Reason for Visit * Reason Onset Date Comments Pre-visit Orders 04/26/2020 Encounter Details Date Type Department Care Team (Late st Contact Info) Description 04/26/2020 Orders Only [facility] Urology - [address] [address] Terry Martinez MD [address] [place] [address], [address] [place] [address] Renal mass (Primary Dx) Social History Tobacco [...] Contact Info) Description 03/24/2024 9:30 EST Appointment [facility] Endoscopy [address] [place] [address] Eleazar Ladd MD [address] [place] [address] [address] [place] [phone] 06/11/2024 11:30 EST Ancillary Procedure [facility] [address] [address] 06/11/2024 12:00 EST Office Visit [address] [address]59771 Terry Martinez MD [address] [place] [address], Level [address] [place] [phone] documented as of this encounter Visit Diagnoses Diagnosis Renal mass- Primary Unspecified disorder of kidney and ureter documented in this encounter Care Teams Motion Graphics Designer Relationship Specialty Start Date End Date Clarissa Luther MD [address] [place] [phone] PCP - General 08/27/08 documented as of this encounter
--- OUTSIDE RECORDS SUMMARY | 2024-03-05 15:25 | XMS_ITS | Encounter Summary ---
Author Organization [facility] Address [address] [place] [address] Care Team Providers Care Chairman & Ceo Name Role Phone Clarissa Luther MD Primary Care Provider [phone] Encounter Details Date Type Department Care Team (Late st Contact Info) Description 11/09/2020 10:15 EDT Phlebotomy Only [facility] ED Center 2 Phlebotomy [address] [place], [place] [address] Facilities Assistant, [facility] Phlebotomy Prostate cancer ([facility]) Social History Tobacco Use Types Packs/Day Years [...] Contact Info) Description 03/24/2024 9:30 EST Appointment [facility] Endoscopy [address] [place] [address] Eleazar Ladd MD [facility] [address] [place] [phone] 06/11/2024 11:30 EST Ancillary Procedure [facility] [address] [id number] 06/11/2024 12:00 EST Office Visit [address] [phone] Terry Martinez MD [address] [place] [address], Level [address] [place] [address] documented as of this encounter Procedures Procedure Name Priority Date/Time Associated Diagnosis Comments PSA TOTAL, DIAGNOSTIC Routine 11/09/2020 10:13 EDT Prostate cancer ([facility]) documented in this encounter Results * PSA TOTAL, DIAGNOSTIC (11/09/2020 10:13 EDT) PSA 2.1 0.0 - 6.5 ng/mL 11/09/2020 14:23 EDT [facility] Blood VENOUS BLOOD / Unknown Venipuncture / Unknown 11/09/2020 10:13 EDT 11/09/2020 10:57 EDT Narrative [facility] - 11/09/2020 14:23 EDT NOTE: Serum PSA concentration should not be interpreted as absolute evidence for the presence or absence of malignant disease. Assayed on Siemens ADVIA Centaur XPT using chemiluminescent technology.??Values obtained by using different assay methods cannot be used interchangeably. Terry Martinez MD CHEMISTRY & BLOOD GAS ORDERABLES [facility] [address] [place] [address] documented in this encounter Visit Diagnoses Diagnosis Prostate cancer ([facility]) Malignant neoplasm of prostate documented in this encounter Care Teams Chairman & Ceo Relationship Specialty Start Date End Date Clarissa Luther MD [address] [place] [phone] PCP - General 08/27/08 documented as of this encounter
--- OUTSIDE RECORDS SUMMARY | 2024-03-05 15:26 | XMS_ITS | Encounter Summary ---
Author Organization [facility] Address [address] [place] [address] Care Team Providers Care Medical Assistant Cardiology Name Role Phone Unavailable Primary Care Provider Unavailabl e Encounter Details Date Type Department Care Team (Late st Contact Info) Description 10/15/2007 5:49 EDT - 10/15/2007 11:59 EDT Hospital Encounter [facility] Perioperative Services- [address] [address] Terry Martinez MD [address] [place] [address], Level 5 [place] [address] Discharge Disposition: Home or Self Care Social History Tobacco Use Types Packs/Day Years Used Date Smoking Tobacco: Never Assessed Sex and Gender Information Value Date Recorded Sex Assigned at Not on file Gender Identity Male 04/20/2020 13:39 EST Sexual Orientation Not on file documented as of this encounter Discharge Disposition Disposition Code Departure Means Destination Home or Self Care documented in this encounter OR Notes * OR Surgeon - Terry Martinez MD - 10/15/2007 0000 EDT PROCEDURE REPORT PT TYPE: OPPROC SERVICE DATE: 10/15/2007 SURGEON: Terry Martinez MD LENS BLOCKER: None. RADIATION ONCOLOGIST: Asif Perkins III, MD PREOPERATIVE DIAGNOSIS Prostate cancer. POSTOPERATIVE DIAGNOSIS Prostate cancer. PROCEDURE Transperitoneal ultrasound-guided prostatic brachytherapy. ANESTHESIA General. INDICATIONS This 67-year-old male was diagnosed with clinically localized prostate cancer. Treatment options were discussed and the patient opted for a transperineal ultrasound-guided prostatic brachytherapy. Complications were reviewed prior to informed consent being obtained. PROCEDURE Under general anesthesia, the patient was prepped and draped in the extended lithotomy position. NARRATIVE Under spinal anesthesia, the patient was prepped and draped in the extended lithotomy position. Therectum was irrigated with normal saline. The bladder was catheterized and drained with an 18-Frenchred rubber catheter and the urethra was catheterized to allow for injection of aerosolized jelly throughout the procedure to allow for visualization of the urethra. Prior to this the bladder was filled with 200 cc of normal saline. The testicles were draped superiorly to allow for placement of the Stepper unit and transrectalprobe. This was in accordance with the pretreatment plan. Under continuous transrectal ultrasound guidance, a total of 22 needles were placed in the prostate to allow for de livery of 90 seeds. Good distribution was ensured throughout. The cystoscopy postprocedure was entirely normal. Spot fluoroscopy was utilized to ensure no cold spots or any dragged seeds. At the termination of the procedure, the patient was re-prepped and draped in the lithotomy position. Using a 21-Bulgarian cystoscope, the urethra was visualized throughout and found to be normal. The prostatic urethra was 1.5 cm in length and normal. The bladder mucosa was normal throughout with normal ureteral orifices seen both normal in appearance and location bilaterally. No other abnormalities were seen. Given the patients small prostatic size, it was felt that no catheter was required. The patient was t ransferred to the recovery room in stable condition. Ringerlactate was utilized throughout. Estimated blood loss was less than 50 cc. He tolerated the procedure well and was sent home with exit prescriptions given by Radiation Oncology. Should he have any difficulties, all instructions were given for phone followup. No specimens were obtained. He will followup with Dr. Perkins in two weeks. COMPLICATIONS None. Signed by Terry Martinez MD 10/29/2007 12:20 Terry Martinez MD - Terry Martinez MD P - KLP Job ID: [id number] Document ID: [id number] cc: MD Prabha Dietz III, MD documented in this encounter Plan of Treatment Upcoming Encounters Date Type Department Care Team (Late st Contact Info) Description 03/24/2024 9:30 EST Appointment [facility] Endoscopy [address] [place] [address] Eleazar Ladd MD [address] [place] [address] [address] [place] [phone] 06/11/2024 11:30 EST Ancillary Procedure [facility] [address] [address] 06/11/2024 12:00 EST Office Visit [address] [phone] Terry Martinez MD [address] [place] [address], [address] [place] [address] documented as of this encounter Procedures Procedure Name Priority Date/Time Associated Diagnosis Comments PELVIS 1 OR 2 VIEWS 10/15/2007 9:26 EDT documented in this encounter Results * PELVIS 1 OR 2 VIEWS (10/15/2007 9:26 EDT) Anatomical Region Laterality Modality Other 10/15/2007 9:26 EDT Narrative 10/18/2008 14:12 EDT PROSTATE CA S/P BRACHYTHERAPY Oct 15, 2007 9:26:00 AM Two intraoperative views of the pelvis. History: Prostate cancer status post brachytherapy. Findings: Brachytherapy seeds are present along the distribution of the prostate gland on the second image. I have personally reviewed the images and the above interpretation and agree with the findings. Procedure Note Joselo Thakur MD / Shubham Van MD - 10/18/2008 PROSTATE CA S/P BRACHYTHERAPY Oct 15, 2007 9:26:00 AM Two intraoperative views of the pelvis. History: Prostate cancer status post brachytherapy. Findings: Brachytherapy seeds are present along the distribution of the prostate gland on the second image. I have personally reviewed the images and the above interpretation and agree with the findings. Terry Martinez MD IMG DIAGNOSTIC IM AGING ORDERABLES documented in this encounter Visit Diagnoses Not on filedocumented in this encounter
--- OUTSIDE RECORDS SUMMARY | 2024-03-05 15:26 | XMS_ITS | Encounter Summary ---
Author Organization [facility] Address [address] [place] [address] Care Team Providers Care Food Photographer Name Role Phone Unavailable Primary Care Provider Unavailabl e Encounter Details Date Type Department Care Team (Late st Contact Info) Description 09/20/2007 13:02 EDT Hospital Encounter [address] [phone] Terry Martinez MD [address] [place] [address] Level [address] [place] [address] Discharge Disposition: Auto Discharge Social History Tobacco Use Types Packs/Day Years Used Date Smoking Tobacco: Never Assessed Sex and Gender Information Value Date Recorded Sex Assigned at Not on file Gender Identity Male 04/20/2020 13:39 EST Sexual Orientation Not on file documented as of this encounter Discharge Disposition Disposition Code Departure Means Destination Auto Discharge documented in this encounter Plan of Treatment Upcoming Encounters Date Type Department Care Team (Late st Contact Info) Description 03/24/2024 9:30 EST Appointment [facility] Endoscopy [address] [place] [address] [facility] Hospital [address] [place] [address] 06/11/2024 11:30 EST Ancillary Procedure [address] [phone] 06/11/2024 12:00 EST Office Visit [address] [address] Terry Martinez MD [address] [facility], Level [address] [place] [phone] documented as of this encounter Visit Diagnoses Not on filedocumented in this encounter
--- OUTSIDE RECORDS SUMMARY | 2024-03-05 15:26 | XMS_ITS | Encounter Summary ---
Author Organization [facility] Address [address] [place] [address] Care Team Providers Care Gis Programmer Name Role Phone Clarissa Luther MD Primary Care Provider [phone] Encounter Details Date Type Department Care Team (Late st Contact Info) Description 09/20/2007 Before PRISM Converted Visit (Maple) [facility] - Maple conversion [address], [place] [address] Terry Martinez MD [address] [facility], [address] [place] [address] Social History Tobacco Use Types Packs/Day Years Used Date Smoking Tobacco: Never Assessed Sex and Gender Information Value Date Recorded Sex Assigned at Not on file Gender Identity Male 04/20/2020 13:39 EST Sexual Orientation Not on file documented as of this encounter Consult Notes * Terry Martinez MD - 01/29/2009 0002 EDT DIVISION OF UROLOGY CONSULTATION - 09/20/2007 Clarissa Luther M.D. [address] [place] [address] Luther: Thank you very much for asking me to consult in the care of your 67-year-old male patient with regards to his recent diagnosis of prostate cancer. As you know he had bilateral biopsies positive in the mid zone for Mitzy 7 prostate cancer. Prostate volumewas 33 mL. He does have mild lower urinary tract symptoms including nocturia twice nightly. Physical examination and history otherwise are noncontributory from standpoint. I did discuss with him treatment options and he has made a decision to undergo brachytherapy with Dr. Murphy and me in the near future. Thanks in advance for your help in taking care of him perioperatively. Thanks as always for involving us in his care. Yours sincerely, Signed by Terry Martinez MD 10/02/2007 09:44 Terry Martinez MD - Terry Martinez MD - TIO Job ID: [id number] Doc ID: [id number] cc: Clarissa Luther MD documented in this encounter Plan of Treatment Upcoming Encounters Date Type Department Care Team (Late st Contact Info) Description 03/24/2024 9:30 EST Appointment [facility] Endoscopy [address] [place] [address] Eleazar Ladd MD [facility] [address] [place] [address] 06/11/2024 11:30 EST Ancillary Procedure [facility] [address] [id number] 06/11/2024 12:00 EST Office Visit [address] [id number] Terry Martinez MD [address] [place] [address], [address] [place] [phone] documented as of this encounter Visit Diagnoses Not on filedocumented in this encounter Care Teams Gis Programmer Relationship Specialty Start Date End Date Clarissa Luther MD [address] [place] [phone] PCP - General 08/27/08 documented as of this encounter
--- OUTSIDE RECORDS SUMMARY | 2024-03-05 15:26 | XMS_ITS | Encounter Summary ---
Author Organization [facility] Address [address] [place] [address] Care Team Providers Care Carburetor Mechanic Name Role Phone Clarissa Luther MD Primary Care Provider [phone] Reason for Visit * Reason Comments Snoring most of adult life c onstant-severe loudness-pt feels rested during the day-denies other symptoms-worse with alcohol Encounter Details Date Type Department Care Team (Late st Contact Info) Description 01/09/2012 13:00 EDT Office Visit [facility] ENT [facility] [address] [place] [address] Unknown, Provider, Asif Kiser MD [address] [facility] [address] [place] [address] Snoring; Deviated nasal septum Discharge Disposition: Auto Discharge Social History Tobacco [...] Sign Reading Time Taken Comments Blood Pressure 144/76 01/09/2012 1257 EDT Pulse 57 01/09/2012 1257 EDT Temperature - - Respiratory Rate - - Oxygen Saturation - - Inhaled Oxygen Concentration - - Weight 88 kg (194 lb) 01/09/2012 1257 EDT Height 180.3 cm (5' 11) 01/09/2012 1257 EDT Body Mass Index 27.06 01/09/2012 1257 EDT documented in this encounter Discharge Disposition Disposition Code Departure Means Destination Auto Discharge documented in this encounter Progress Notes * Asif Kiser MD - 01/09/2012 1340 EDT Dear Clarissa Luther MD This is a consult from Clarissa Luther for evaluation of snoring. History of Present Illness: This is a 71-year-old male with a long history of snoring over many years that has gradually become worse with time. His symptoms are of moderate severity, constant, occurs daily, perhaps slightly better when sleeping on the right side. Otherwise, position changes have no effect. He denies daytime somnolence but takes naps during the daytime and the naps have become longer with time and he sometimes feels fatigued. There is some observed mild apnea but no morning headache. Past medical history is significant for asthma and cancer. Previous surgeries include tonsillectomy. Family history is noncontributory. Social History: The patient is a former smoker, quit in 1974. No known drug allergies. Current medications include albuterol. Review of systems is otherwise negative for complete review of all systems. Objective: General: Well-developed, well-nourished, cooperative adult male in no acute distress. Normal voice. Vital signs: Height 71 inches, weight 194. Blood pressure 144/76, pulse 57. No reportable pain. The face is normal without lesions. No tenderness to palpation. Salivary glands are normal. Facial strength is symmetric. Eye exam is normal. Ears: External ears normal, canals are clear, tympanic membranes are normal. Nose: Nasal dorsum is midline, the airway is patent. Oral cavity is clear. Posterior pharynx is clear. The uvula is somewhat elongated, but the tongue is not elevated, San type 2. Tonsils are absent. Neck: No pathologic lymphadenopathy. Trachea is midline. Thyroid is normal. Chest is clear to auscultation. Heart: Regular rate and rhythm. Procedure: Fiberoptic nasal endoscopy was performed with topical anesthesia. This reveals a right posterior nasal septal deviation but without complete obstruction. No polyps or purulence. Both middle meati are clear. Nasopharynx is clear. There is scar tissue from previous adenoidectomy. The base of tongue, epiglottis, vallecula, piriform sinuses, false vocal cords and true vocal cords are within normal limits with good bilateral true vocal cord motion. The tongue base is not enlarged. Muellermaneuver was performed and this reveals minimal collapse in a circumferential manner. Impression: Snoring and nasal septal deviation and perhaps mild obstructive sleep apnea. Recommendation: Consider sleep study. Treatment options including uvulectomy, uvulopharyngopalatoplasty, LAUP, radiofrequency ablation and pillar implants were discussed with the patient, along with mandibular advancement devices and CPAP. Instruction material was given to the patient and spouse. They will call back if they wish to proceed with further workup or study. Otherwise, follow up with ENT p.r.n. Sincerely, documented in this encounter Plan of Treatment Upcoming Encounters Date Type Department Care Team (Late st Contact Info) Description 03/24/2024 9:30 EST Appointment [facility] Endoscopy [address] [place] [address] Eleazar Ladd MD [address] [place] [address] [address] [place] [phone] 06/11/2024 11:30 EST Ancillary Procedure [address] [id number] 06/11/2024 12:00 EST Office Visit [address] [phone] Terry Martinez MD [address] [place] [address], [address] [place] [phone] documented as of this encounter Visit Diagnoses Diagnosis Snoring Other dyspnea and respiratory abnormality Deviated nasal septum documented in this encounter Discontinued Medications Medication Sig Discontinue Reason Start Date End Da te ibuprofen (MOTRIN) 200 mg tablet Take 200 mg by mouth. As needed 01/09/2012 documented as of this encounter Care Teams Carburetor Mechanic Relationship Specialty Start Date End Date Clarissa Luther MD [address] [place] [address] PCP - General 08/27/08 documented as of this encounter
--- OUTSIDE RECORDS SUMMARY | 2024-03-05 15:26 | XMS_ITS | Encounter Summary ---
Author Organization [facility] Address [address] [place] [address] Care Team Providers Care Banana Room Cutter Name Role Phone Unavailable Primary Care Provider Unavailabl e Encounter Details Date Type Department Care Team (Late st Contact Info) Description 10/06/2007 18:22 EDT Hospital Encounter [address] [address] Dank Perkins MD [address] [place] [address], [address] [place] [address] Social History Tobacco Use Types [...] 10:02 EDT documented as of this encounter Progress Notes * Prabha Perkins III, MD - 10/24/2007 0000 EDT DIVISION OF RADIATION ONCOLOGY PROGRESS/FOLLOWUP NOTE - 10/24/2007 PRIMARY SITE AND HISTOPATHOLOGY T2a, PSA 7.2, Hiddenite score 3 + 4 = 7 adenocarcinoma of the prostate. He is status post prostate seed implant on October 15, 2007. INTERVAL HISTORY Mr. Schumacher returns today for routine followup stating he is doing well overall. He has had some increased urinary frequency, particularly at night. He is taking one Flomax at night at this point. He urinates every 30 minutes to an hour. He has no dysuria. His urinary stream remains fairly good. He has no bowel complaints. His appetite and energy remain good. OBJECTIVE Mr. Schumacher is not examined today. ASSESSMENT/PLAN Mr. Schumacher appears to be stable at this point. I suggested to himthat he increase his Flomax to two at night. He will have a follow-up appointment with Dr. Martinez within the next few months and return to see me for routine followup approximately six months from now. He knows he can contact us at any time should theneed arise. Signed by Prabha Perkins III, MD 11/05/2007 10:31 Prabha Perkins III, MD - Asif Perkins III, MD - KKB Job ID: [id number] Doc ID: [id number] cc: MD Terry García MD Michael Zahm, MD - Prabha Perkins III, MD - kkb Job ID: [id number] Doc ID: [id number] cc: MD Terry García MD Michael Zahm, MD documented in this encounter Procedure Notes * Prabha Perkins III, MD - 10/15/2007 0000 EDT DIVISION OF RADIATION ONCOLOGY PROCEDURE REPORT SERVICE DATE: 10/15/2007 OPERATORS: Terry Martinez MD; Leona Perkins III, MD BLACK OXIDE COATING EQUIPMENT TENDER: PROCEDURE Ultrasound-guided prostate seed implant brachytherapy. PREPROCEDURE DIAGNOSIS T2a, PSA 7.2, Mitzy score (3 + 4 = 7) adenocarcinoma of the prostate. POSTPROCEDURE DIAGNOSIS T2a, PSA 7.2, Hiddenite score (3 + 4 = 7) adenocarcinoma of the prostate. NARRATIVE Mr. Schumacher was brought to the operating room and received general anesthesia. After appropriate prep, a Chery catheter was placed and a syringe with aerosolized gel attached to the catheter; this was fixed in place with an adhesive drape. I then inserted the transrectal ultrasound probe, and good images of the prostate gland, both in the sagittal and axial views, were obtained. I then aligned the prostate gland probe and the patient to simulate the position he was in for his volume study. Fluoroscopicevaluation was obtained of the intended implant region, and then a single stainless steel marker seed was placed, first at the base and then the other at the apex of the gland. Then, with Dr. Martinez, a total of 22 needles were utilized to insert a total of 90 seeds. We used both axial and sagittal imaging to ensure adequate placement of these seeds. The aerosolized gel within the Foleycatheter was visualized on the ultrasound again to ensure appropriate distribution. The gland was quite stable, and the implant process proceeded well. After a final fluoroscopic and ultrasonographicevaluation of the seed placement, the probe was removed. Dr. Martinez subsequently did cystoscopy, and confirmed no significant abnormality within the urethra or bladder and no free or loose seeds. Mr. Schumacher was taken to the recovery room. DISPOSITION Mr. Schumacher will have a CT scan with the Chery catheter in place for dosimetric purposes. His Chery catheter will then be removed. He will return to see me in one week for routine followup purposes. Signed by Prabha Perkins III, MD 10/16/2007 14:18 Prabha Perkins III, MD - Asif Perkins III, MD - LT Job ID: [id number] Doc ID: [id number] cc: MD Terry García MD Michael Zahm, MD - Prabha Perkins III, MD - lt Job ID: [id number] Doc ID: [id number] cc: MD Terry García MD Michael Zahm, MD documented in this encounter Plan of Treatment Upcoming Encounters Date Type Department Care Team (Late st Contact Info) Description 03/24/2024 9:30 EST Appointment [facility] Endoscopy [address] [place] [address] Eleazar Ladd MD [address] [place] [address] [address] [place] [phone] 06/11/2024 11:30 EST Ancillary Procedure [facility] Urolog[address] [id number] 06/11/2024 12:00 EST Office Visit [address] [id number] Terry Martinez MD [address] [facility], [address] [place] [address] documented as of this encounter Procedures Procedure Name Priority Date/Time Associated Diagnosis Comments CT PELVIS (ILIAC CREST TO SYMPHYSIS PUBIS) WO CONTRAST 10/15/2007 12:48 EDT documented in this encounter Results * CT PELVIS WO CONTRAST (10/15/2007 12:48 EDT) Anatomical Region Laterality Modality Other 10/15/2007 12:4 8 EDT Narrative 10/18/2008 13:53 EDT prostate adenoca, s/p psi History: ?? prostate adenoCA, s/p psi. Helical CT images of the pelvis were obtained without the use of intravenous contrast. Findings: There is a Chery catheter within the urinary bladder. There are multiple seeds within a slightly enlarged prostate gland. The seeds are well distributed. There are are no enlarged nodes in the visualized portions of the pelvis. There is a trace amount of free fluid in the pelvis. The visualized portions of the bones demonstrate no lytic or blastic lesions. Procedure Note Tere Knight MD - 10/18/2008 prostate adenoca, s/p psi History: prostate adenoCA, s/p psi. Helical CT images of the pelvis were obtained without the use of intravenous contrast. Findings: There is a Chery catheter within the urinary bladder. There are multiple seeds within a slightly enlarged prostate gland. The seeds are well distributed. There are are no enlarged nodes in the visualized portions of the pelvis. There is a trace amount of free fluid in the pelvis. The visualized portions of the bones demonstrate no lytic or blastic lesions. Amol Murphy MD IMG CT ORDERABLES documented in this encounter Visit Diagnoses Not on filedocumented in this encounter
--- OUTSIDE RECORDS SUMMARY | 2024-03-05 15:26 | XMS_ITS | Encounter Summary ---
Author Organization [facility] Address [address] [place] [address] Care Team Providers Care Barrel Marker Name Role Phone Clarissa Luther MD Primary Care Provider [phone] Encounter Details Date Type Department Care Team (Late st Contact Info) Description 10/05/2009 16:55 EDT - 10/05/2009 23:59 EDT Hospital Encounter [facility] Radiation Oncology - [address] [address] Dank Perkins MD 111 [facility], [address] [place] [phone] Discharge Disposition: Home or Self Care Social History Tobacco Use Types Packs/Day Years Used Date Smoking Tobacco: Never Assessed Sex and Gender Information Value Date Recorded Sex Assigned at Not on file Gender Identity Male 04/20/2020 13:39 EST Sexual Orientation Not on file documented as of this encounter Discharge Disposition Disposition Code Departure Means Destination Home or Self Long Term documented in this encounter Progress Notes * Prabha Perkins III, MD - 11/03/2009 0000 EDT DIVISION OF RADIATION ONCOLOGY PROGRESS/FOLLOWUP NOTE - 11/03/2009 SITE, HISTOPATHOLOGY AND STAGE: T2a, PSA 7.2, Mitzy score 3+4=7 (intermediate risk) adenocarcinoma of the prostate, status post prostate seed implant on 10/15/2007. INTERVAL HISTORY: Mr Schumacher returns today for routine followup. He states that he is doing very well. He has minimal urinary symptoms and is not taking Flomax or other similar medications. His bowel habits are normal, he has had no hematochezia. He has had no hematuria. He has no localizing bone pain. His appetite and energy are good. He continues to have PSAs done routinely by Dr Luther, hetells me that his most recent PSA was approximately 0.5. He has no other specific complaints at this point. DIRECTED EXAMINATION: Weight 200.8 pounds, which is up approximately 8 pounds from weight of last April. General: A very pleasant, cooperative man in no acute distress. HEENT: Unremarkable. Neck is supple. Nodes: No palpable cervical, supraclavicular or axillary adenopathy. Back nontender to percussion. Lungs clear to auscultation. Heart regular rhythm. Rectal normal sphincter tone. The prostate is soft, smooth without nodularity or evidence of disease. ASSESSMENT AND PLAN: Mr Schumacher continues to do well and is without evidence of disease or significant side effects now two years after his implant. At his request, we will ask Dr Luther to continue PSAs every 6 months and forward those results to me. I will see him on an annual basis, althoughhe will contact me sooner should the need arise. Electronically Signed by Prabha Perkins III, MD 11/09/2009 13:50 Prabha Perkins III, MD - Prabha Perkins III, MD - OFELIA Job ID: SM Doc ID: [id number] Ext Doc ID: [id number] cc: * Prabha Perkins III, MD - 11/03/2009 0000 EDT DIVISION OF RADIATION ONCOLOGY PROGRESS/FOLLOWUP NOTE - 11/03/2009 Clarissa Luther MD [address] [place] [address] Luther: I saw Mr Schumacher in the office today and he continues to do well. He tells me that his most recent PSA was approximately 0.5, we will have those results forwarded to my office. Mr Schumacher is interested in continuing annual followup with me; I did strongly recommend to himthat he continue routine PSA analysis every 6 months. He tells me that he feels that you would be willing to do this for him. It would be helpful to me if in fact he could continue have PSAs on an every 6- month basis and ask them to be forwarded to me at this office. I certainly would be happy to see Mr Schumacher should any other issues arise or answer any questions that he might have in the future. Thank you for assisting us in his care. Sincerely, Electronically Signed by Prabha Perkins III, MD 11/09/2009 13:50 Prabha Perkins III, MD - Prabha Perkins III, MD - OFELIA Job ID: SM Doc ID: [id number] Ext Doc ID: [id number] cc: MD Terry García MD documented in this encounter Plan of Treatment Upcoming Encounters Date Type Department Care Team (Late st Contact Info) Description 03/24/2024 9:30 EST Appointment [facility] Endoscopy [address] [place] [address] Eleazar Ladd MD [address] [place] [address] [address] [place] [phone] 06/11/2024 11:30 EST Ancillary Procedure [facility] [address] [id number] 06/11/2024 12:00 EST Office Visit [address] [phone] Terry Martinez MD [address] [place] [address], [address] [place] [phone] documented as of this encounter Visit Diagnoses Not on filedocumented in this encounter Historical Medications * This list may reflect changes made after this encounter. Medication Sig Dispensed Refills Start Date End Date ibuprofen (MOTRIN) 200 mg tablet Take 200 mg by mouth. As needed 01/09/2012 added in this encounter Care Teams Barrel Marker Relationship Specialty Start Date End Date Clarissa Luther MD [address] [place] [address] PCP - General 08/27/08 documented as of this encounter
--- OUTSIDE RECORDS SUMMARY | 2024-03-05 15:26 | XMS_ITS | Encounter Summary ---
Author Organization [facility] Address [address] [place] [address] Care Team Providers Care Spin Tank Tender Name Role Phone Unavailable Primary Care Provider Unavailabl e Encounter Details Date Type Department Care Team (Late st Contact Info) Description 02/13/2008 13:14 EDT Hospital Encounter [address] [id number] Terry Martinez MD [address] [place] [address] [address] [place] [address] Discharge Disposition: Auto Discharge Social [...] Contact Info) Description 03/24/2024 9:30 EST Appointment [facility] Endoscopy [address] [place] [address] Eleazar Ladd MD [facility] [address] [place] [address] 06/11/2024 11:30 EST Ancillary Procedure [address] [id number] 06/11/2024 12:00 EST Office Visit [address] [address] Terry Martinez MD 111 [facility], [address] [place] [phone] documented as of this encounter Visit Diagnoses Not on filedocumented in this encounter
--- OUTSIDE RECORDS SUMMARY | 2024-03-05 15:26 | XMS_ITS | Encounter Summary ---
Author Organization [facility] Address [address] [place] [address] Care Team Providers Care Citrus Fruit Packer Name Role Phone Clarissa Luther MD Primary Care Provider [phone] Reason for Visit * Reason Comments Prostate Cancer Encounter Details Date Type Department Care Team (Late st Contact Info) Description 07/01/2012 13:00 EST Office Visit [facility] Radiation Oncology - [address] [phone] Dank Warner MD 111 [facility] Level 2 [place] [address] Prostate cancer (CMS-HCC) ([facility]) (Primary Dx) Discharge Disposition: Auto Discharge Social History Tobacco [...] - Inhaled Oxygen Concentration - - Weight 91.6 kg (202 lb) 07/01/2012 1235 EST with shoes on Height - - Body Mass Index 28.17 01/09/2012 1257 EDT documented in this encounter Discharge Disposition Disposition Code Departure Means Destination Auto Discharge documented in this encounter Progress Notes * Prabha Warner MD - 07/01/2012 1412 EST DIVISION OF RADIATION ONCOLOGY FOLLOW-UP NOTE DATE OF SERVICE: 07/01/2012 DIAGNOSIS AND STAGE: T2a, PSA 7.2, Mitzy score 3+4=7 (intermediate risk) 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 REGION TREATED: Prostate INTERVAL SINCE RADIATION THERAPY: 4 1/2 years SUBJECTIVE: Mr. Schumacher returns today for routine followup of his prostate cancer. He states hecontinues to do well overall. His urinary habits are stable, his IPSS today is 8. He has had no hematuria. His bowel habits are normal, he has had no hematochezia. He had one episode of hematochezia over a year and a half ago and none since. He does not have erectile function at this point and has not responded to Cialis in the past.. He has no other specific localizing symptoms, specifically denies localizing bone pain. He tells me he is due for routine screening colonoscopy. Otherwise he is doing very well. MEDICATIONS: Current Outpatient Prescriptions Medication Sig Dispense Refill ??? albuterol (ACCUNEB) 1.25 mg/3 mL nebulizer solution Inhale 1.25 mg as directed every 4 hours asneeded. OBJECTIVE: Weight: 91.627 kg (202 lb) (with shoes on) General: Very pleasant and cooperative man in no acute distress. HEENT: Unremarkable. Neck: Supple.Nodes: No palpable cervical, supra-clavicular or axillary adenopathy. Back: Nontender to percussion. Lungs: Clear to auscultation. Heart: Regular rhythm. Rectal: Normal sphincter tone. The prostate is soft without nodularity or evidence of disease. Data: PSA done through Dr. Luther's office last November was 0.2. IMPRESSION AND PLAN: Overall he is doing very well with essentially stable PSA. He has minimal treatment related side effects. He is due for repeat colonoscopy for routine screening. I emphasized to him today the importance of avoiding biopsies of the rectum adjacent to the irradiated volume given the potential risk of fistula formation in the setting. He'll return to see me once again in one year for routine followup or contact me sooner should the need arise. I will have my office schedule anappointment for him to meet with Dr. Martinez to discuss other alternative approaches to his erectiledysfunction. He'll continue annual PSAs at this point. Prabha WARNER MD This note has been prepared with voice recognition software. Please excuse vp data errors. documented in this encounter Plan of Treatment Upcoming Encounters Date Type Department Care Team (Late st Contact Info) Description 03/24/2024 9:30 EST Appointment [facility] Endoscopy [address] [place] [address] Eleazar Ladd MD [address] [place] [address] [address] [place] [phone] 06/11/2024 11:30 EST Ancillary Procedure [facility] [address] 125411 06/11/2024 12:00 EST Office Visit [address] [phone] Terry Martinez MD [address] [facility], [address] [place] [phone] documented as of this encounter Visit Diagnoses Diagnosis Prostate cancer ([facility])- Primary Malignant neoplasm of prostate documented in this encounter Care Teams Citrus Fruit Packer Relationship Specialty Start Date End Date Clarissa Luther MD [address] [place] [phone] PCP - General 08/27/08 documented as of this encounter
--- OUTSIDE RECORDS SUMMARY | 2024-03-05 15:26 | XMS_ITS | Encounter Summary ---
Author Organization [facility] Address [address] [place] [address] Care Team Providers Care Vacuum Metalizing Supervisor Name Role Phone Clarissa Luther MD Primary Care Provider [phone] Encounter Details Date Type Department Care Team (Late st Contact Info) Description 06/07/2012 16:10 EST - 06/07/2012 23:59 EST Hospital Encounter [facility] Radiation Oncology - [address] [phone] Dank Perkins MD 111 [facility], Level [address] [place] [address] Discharge Disposition: Home or Self [...] Code Departure Means Destination Home or Self Retirement documented in this encounter Plan of Treatment Upcoming Encounters Date Type Department Care Team (Late st Contact Info) Description 03/24/2024 9:30 EST Appointment [facility] Endoscopy [address] [place], [place] [phone] Eleazar Ladd MD [facility] [address] [place] [phone] 06/11/2024 11:30 EST Ancillary Procedure [address] [id number] 06/11/2024 12:00 EST Office Visit [address] 594131 Terry Martinez MD [address] [place] [address], [address] [place] [address] documented as of this encounter Visit Diagnoses Not on filedocumented in this encounter Care Teams Vacuum Metalizing Supervisor Relationship Specialty Start Date End Date Clarissa Luther MD 4 [facility] [place] [phone] PCP - General 08/27/08 documented as of this encounter
--- OUTSIDE RECORDS SUMMARY | 2024-03-05 15:26 | XMS_ITS | Encounter Summary ---
Author Organization [facility] Address [address] [place] [address] Care Team Providers Care Marketing Information Manager Name Role Phone Unavailable Primary Care Provider Unavailabl e Encounter Details Date Type Department Care Team (Late st Contact Info) Description 08/26/2007 18:36 EDT Hospital Encounter [address] [address] Amol Murphy MD [address] [place] [id number] Discharge Disposition: Home or Self Care Social [...] Contact Info) Description 03/24/2024 9:30 EST Appointment [facility] Endoscopy [address] [place] [address] Eleazar Ladd MD [facility] [address] [place] [phone] 06/11/2024 11:30 EST Ancillary Procedure [facility] Urolog[address] [id number] 06/11/2024 12:00 EST Office Visit [facility] Urolog[address] [phone] Terry Martinez MD [address] [place] [address], [address] [place] [address] documented as of this encounter Visit Diagnoses Not on filedocumented in this encounter
--- OUTSIDE RECORDS SUMMARY | 2024-03-05 15:26 | XMS_ITS | Encounter Summary ---
Author Organization [facility] Address [address] [place] [address] Care Team Providers Care Chummer Name Role Phone Unavailable Primary Care Provider Unavailabl e Encounter Details Date Type Department Care Team (Late st Contact Info) Description 08/01/2007 20:37 EDT Hospital Encounter [facility] - Other [address] [place] [address] Amol Murphy MD [address] [place], [place] [address] Discharge Disposition: Home or Self Care Social [...] EST Appointment [facility] Endoscopy [address] [place] [address] Eleazar Ladd MD [facility] [address] [place] [phone] 06/11/2024 11:30 EST Ancillary Procedure [facility] [address]rolog[address] [id number] 06/11/2024 12:00 EST Office Visit [facility] [address]rolog[address] [phone] Terry Martinez MD [address] [place] [address], [address] [place] [address] documented as of this encounter Visit Diagnoses Not on filedocumented in this encounter
--- OUTSIDE RECORDS SUMMARY | 2024-03-05 15:26 | XMS_ITS | Encounter Summary ---
Author Organization [facility] Address [address] [place] [address] Care Team Providers Care Extern Name Role Phone Clarissa Luther MD Primary Care Provider [phone] Encounter Details Date Type Department Care Team (Late st Contact Info) Description 12/05/2010 16:52 EDT - 12/05/2010 23:59 EDT Hospital Encounter [facility] Radiation Oncology - [address] [address] Dank Perkins MD 111 [facility], Level 2 [place] [phone] Discharge Disposition: Home or Self Care Social [...] needed 01/09/2012 documented as of this encounter Discharge Disposition Disposition Code Departure Means Destination Home or Self Intermediate documented in this encounter Progress Notes * Prabha Perkins MD - 12/16/2010 1634 EDT DIVISION OF RADIATION ONCOLOGY PROGRESS/FOLLOWUP NOTE - 12/16/2010 SITE, HISTOPATHOLOGY AND STAGE: T2a, PSA 7.2, Mitzy score 3+4=7 (intermediate risk) 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 INTERVAL HISTORY: Mr Schumacher returns to the office for routine followup stating overall he is doing reasonably well. He is concerned in that he did have some rectal bleeding starting about 4 or 5months ago, and he is concerned that this might represent recurrence of his cancer. Specifically, he states that this past July he had a brief episode of hematochezia, typically blood mixed with stool, which self-resolved for a period of a month; and then since that time he has had intermittent bleeding, typically once a week or less. He has no rectal pain. He has had no shell blood and has not passed clots. He has made some alterations in his diet without significant change in his bleeding pattern. His urinary habits are stable for him. His IPSS today is 8. He reports some ability to get erections but does have difficulties with it most of the time. OBJECTIVE: General: A very pleasant and cooperative man in no acute distress. HEENT: Unremarkable. Neck: Supple without adenopathy. Back: Nontender to percussion. Lungs: Clear to auscultation. Heart:Regular rhythm. Rectal: Normal sphincter tone. The prostate is small, soft without nodularity or evidence of disease. DATA: PSA done on 11/18/[address] Luther's office is 0.24. ASSESSMENT AND PLAN: Mr Schumacher has had a very favorable PSA response and is clinically withoutevidence of disease. His rectal bleeding is of modest concern and certainly requires further followup. I have recommended to him that he routinely use stool softeners to prevent constipation. He willcontact me prior to our next scheduled appointment in 1 year if the bleeding persists or worsens. We could try various suppositories, including steroid suppositories or Canasa, if these symptoms continue. If his symptoms worsen then we might want to consider gastroenterology or colorectal surgery evaluation. Electronically Signed by Prabha Perkins III, MD 12/23/2010 14:51 Prabha Perkins III, MD - Prabha Perkins III, MD - [facility] Job ID: Doc ID: [id number] Ext Doc ID: [id number] cc: MD Arnulfo García MD documented in this encounter Plan of Treatment Upcoming Encounters Date Type Department Care Team (Late st Contact Info) Description 03/24/2024 9:30 EST Appointment [facility] Endoscopy [address] [place] [address] Eleazar Ladd MD [facility] [address] [place] [phone] 06/11/2024 11:30 EST Ancillary Procedure [facility] Urolog[address] 826271 06/11/2024 12:00 EST Office Visit [address] [phone] Terry Martinez MD 111 [facility], [address] [place] [address] documented as of this encounter Visit Diagnoses Not on filedocumented in this encounter Historical Medications * This list may reflect changes made after this encounter. Medication Sig Dispensed Refills Start Date End Date albuterol (ACCUNEB) 1.25 mg/3 mL nebulizer solution Inhale 1.25 mg as directed every 4 hours as needed. 11/13/2019 added in this encounter Care Teams Extern Relationship Specialty Start Date End Date Clarissa Luther MD 4 [facility] [place] [phone] PCP - General 08/27/08 documented as of this encounter
--- OUTSIDE RECORDS SUMMARY | 2024-03-05 15:26 | XMS_ITS | Encounter Summary ---
Author Organization [facility] Address [address] [place] [address] Care Team Providers Care Manager Commodities Name Role Phone Clarissa Luther MD Primary Care Provider [phone] Encounter Details Date Type Department Care Team (Late st Contact Info) Description 08/06/2007 Before PRISM Converted Visit (Maple) [facility] - Maple conversion [address] [place] [address] Amol Murphy MD [address] [place], [place] [phone] Social History Tobacco Use Types Packs/Day Years Used Date Smoking Tobacco: Never Assessed Sex and Gender Information Value Date Recorded Sex Assigned at Not on file Gender Identity Male 04/20/2020 13:39 EST Sexual Orientation Not on file documented as of this encounter Procedure Notes * Ankur, Conv Childbirth Educator - 02/05/2009 0136 EDT DIVISION OF RADIATION ONCOLOGY PROCEDURE REPORT SERVICE DATE: 08/26/2007 PRIMARY SITE AND HISTOPATHOLOGY Prostate, Hines category 7 (3+4) with a PSA of 7.2, stage T2a. TREATMENT RATIONALE The patient is being considered for implant monotherapy with a curative intent. DESCRIPTION Today, August 26, 2007, the patient was placed in the dorsal lithotomy position. An ultrasound probewas placed in his rectum to visualize his gland. This was then connected to the stepper and the stabilizer unit. His gland appeared symmetrical and small.It measured 33 cc. There were several areas of intraprostatic calcifications, but no clear hypoechoic area could be identified. There appeared lenin minimal pubic arch blockage. IMPRESSION I feel the patient is a good candidate for implant monotherapy. PLAN The patient has been scheduled for implant with Dr. Martinez on October 08, 2007. I plan a dose of 145 Gy. Signed by Amol Murphy MD 09/02/2007 15:51 Amol Murphy MD D: - Amol Murphy MD - [facility] Job ID: [id number] Doc ID: [id number] cc: documented in this encounter Consult Notes * Doyle Pascual Childbirth Educator - 02/01/2009 1159 EDT DIVISION OF RADIATION ONCOLOGY CONSULTATION - 08/06/2007 PRIMARY SITE AND HISTOPATHOLOGY Prostate, Hines 7 (3+4) adenocarcinoma with a PSA of 7.2, stage T2a because of hypoechoic area onultrasound. HISTORY The patient is a 68-year-old male who recently had a first-ever PSA of 9.8. This was repeated and found to be 7.2. Evaluation by Dr. Altman led to 10-core biopsy on May 27, 2007. One of the cores from the right midzone retrieved 15% Hines 6 tumor. One core from the left midzone, I believe, retrieved 5% Hines 3+4. This [facility]. His volume was approximately 25 cc. A bone scan and CT scan showed no adenopathy or metastatic disease. The patient was then referred for a discussion of his management options. PAST MEDICAL HISTORY The patient does have a history of asthmatic bronchitis. He says these episodes are quite intermittent, but he does benefit from an albuterol inhaler periodically. He has had bilateral hernia repairs. On a recent exam by Dr. Altman, he did have several spermatoceles. These were small and asymptomatic. He has otherwise been healthy. MEDICATIONS His medications include: 1. Albuterol intermittently. 2. Flovent. 3. . ALLERGIES He has no known allergies. SOCIAL HISTORY The patient is and lives in [place]. 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 He is physically fit and enjoys bicycle riding. He does not smoke. He drinks minimally. He does drive. FAMILY HISTORY Negative for cancer. REVIEW OF SYSTEMS The patient says he is feeling really quite well. He has had occasional right hip pain which he deals with chiropractically. He is breathing fine today but intermittently has some difficulty with shortness of breath, for which uses albuterol successfully. He says his urine stream is reasonably strong. He feels he can empty his bladder. He gets up at night at most twice to urinate. His bowel movements are regular and formed with no pain or bleeding. He is not able to have erections and is not sexually active. OBJECTIVE On physical examination the patient is trim, fit, and comfortable today. He has a supple neck with no cervical or supraclavicular adenopathy. Chest is clear to auscultation with no rales or wheezes. Cardiovascular exam reveals regular rate with no murmurs. Abdomen is flat, soft, and nontender without hepatomegaly. He has no peripheral edema. His neurological exam reveals no focal sensory or motor deficits. Rectal exam revealsa mildly raised prostate bed bilaterally but no discrete nodules or asymmetries palpated. His stool is Hemoccult negative, and the control is positive. IMPRESSION I feel the patient has a T2a N0 M0, Mitzy category 7 (3+4) carcinoma of the prostate with a PSA of 7.2. I feel the volume of his tumor is relatively low, based on the core percentages; however, it is bilateral. The small area of carcinoma in the left midzone was reclassified as Hines 3+4. I would say he is in the [id number] risk group. I feel his management options include active surveillance; however, his PSA is approaching 10. He also has a Mitzy 7 and is relatively young, so this would not be my preferred approach. For active therapy, I feel he is a good candidate for a radical prostatectomy or external beam irradiation or possibly implant monotherapy. I discussed in detail the logic as well as the technique and side effects of the external beam irradiation and the permanent I-25 implant. At the completion of the discussion, the patient wished to consider his options more fully prior to making a decision on therapy. He will review his options again with Dr. Altman. PLAN The patient has been given information about the permanent seed implant and told who to contact should he wish to proceed with the implant or the external beam irradiation. He has not, however, been given a specific follow-up appointment here. Signed by Amol Murphy MD 08/12/2007 16:24 Amol Murphy MD D: - Amol Murphy MD - [facility] Job ID: [id number] Doc ID: [id number] cc: MD Arnulfo García MD cc: MD Arnulfo García MD documented in this encounter Plan of Treatment Upcoming Encounters Date Type Department Care Team (Late st Contact Info) Description 03/24/2024 9:30 EST Appointment [facility] Endoscopy [address] [place], [place] [address] Eleazar Ladd MD [address] [place] [address] [address] [place] [phone] 06/11/2024 11:30 EST Ancillary Procedure [address] [address]181 06/11/2024 12:00 EST Office Visit [address] [phone] Terry Martinez MD [address] [place] [address], [address] [place] [phone] documented as of this encounter Visit Diagnoses Not on filedocumented in this encounter Care Teams Manager Commodities Relationship Specialty Start Date End Date Clarissa Luther MD [address] [place] [phone] PCP - General 08/27/08 documented as of this encounter
--- OUTSIDE RECORDS SUMMARY | 2024-03-05 15:26 | XMS_ITS | Encounter Summary ---
Author Organization [facility] Address [address] [place] [address] Care Team Providers Care Nonprofit Financial Controller Name Role Phone Clarissa Luther MD Primary Care Provider [phone] Encounter Details Date Type Department Care Team (Late st Contact Info) Description 10/10/2007 Before PRISM Converted Visit (Maple) [facility] - Maple conversion [address] [place], [place] [address] Dank Perkins MD 111 [facility], Level [address] [place] [address] Social History Tobacco Use Types Packs/Day Years Used Date Smoking Tobacco: Never Assessed Sex and Gender Information Value Date Recorded Sex Assigned at Not on file Gender Identity Male 04/20/2020 13:39 EST Sexual Orientation Not on file documented as of this encounter Progress Notes * Prabha Perkins III, MD - 02/01/2009 1331 EDT DIVISION OF RADIATION ONCOLOGY PROGRESS/FOLLOWUP NOTE - 10/10/2007 SITE, HISTOPATHOLOGY, AND STATE T2a, PSA 7.2, Mitzy score 3+4=7, adenocarcinoma of the prostate. INTERVAL HISTORY Mr. Schumacher was initially scheduled for prostate seed implant by Dr. Murphy. Since Dr. Conroy long-term, he has been unable to attend Mr. Neumann implant, and I will be doing this with Dr. Martinez next week. We had Mr. Schumacher come to the office, at his request, to review the recommendations in anticipation of his implant next week. Mr. Schumacher states that he feels well and has no new urinary or other complaints. I reviewed for Mr. Schumacher, as well as his , who accompanied him today, the role and rationale of prostate seed implant in his disease. I once again reviewed for him in great detail our treatment approach and potential side effects. He is aware that there is a risk of significant urinary difficulties, as well as long-term risk of urethral stricture, and permanent bladder and bowel injury. We will proceed with Mr. Neumann implant next Sunday. Signed by Prabha Perkins III, MD 10/14/2007 10:21 H Asif Perkins III, MD - Prabha Perkins III, MD - [facility] Job ID: [id number] Doc ID: [id number] cc: - [facility] Job ID: [id number] Doc ID: [id number] cc: documented in this encounter Plan of Treatment Upcoming Encounters Date Type Department Care Team (Late st Contact Info) Description 03/24/2024 9:30 EST Appointment [facility] Endoscopy [address] [place] [address] Eleazar Ladd MD [address] [place] [address] [address] [place] [phone] 06/11/2024 11:30 EST Ancillary Procedure [facility] [address] [phone] 06/11/2024 12:00 EST Office Visit [address] [address] Terry Martinez MD [address] [place] [address], [address] [place] [phone] documented as of this encounter Visit Diagnoses Not on filedocumented in this encounter Care Teams Nonprofit Financial Controller Relationship Specialty Start Date End Date Clarissa Luther MD [address] [place] [phone] PCP - General 08/27/08 documented as of this encounter
--- OUTSIDE RECORDS SUMMARY | 2024-03-05 15:26 | XMS_ITS | Encounter Summary ---
Author Organization [facility] Address [address] [place] [address] Care Team Providers Care Log Haul Chain Feeder Name Role Phone Clarissa Luther MD Primary Care Provider [phone] Encounter Details Date Type Department Care Team (Late st Contact Info) Description 02/13/2008 Before PRISM Converted Visit (Maple) [facility] - Maple conversion [address] [place], [place] [address] Terry Martinez MD [address] [facility], [address] [place] [address] Social History Tobacco Use Types Packs/Day Years Used Date Smoking Tobacco: Never Assessed Sex and Gender Information Value Date Recorded Sex Assigned at Not on file Gender Identity Male 04/20/2020 13:39 EST Sexual Orientation Not on file documented as of this encounter Progress Notes * Terry Martinez MD - 11/27/2008 0002 EDT DIVISION OF UROLOGY PROGRESS/FOLLOWUP NOTE - 02/13/2008 Clarissa Luther MD [address] [place] [address] Luther: Thanks, as always, for involving us in your patients care. Four months after his brachytherapy, hisPSA has reduced significantly from 9.8 pretreatment to 1.0 most recently. On Flomax, his symptoms have been controlled relatively well. He has had some erectile dysfunction since the procedure. As such, I have left him with a trial of Viagra, Cialis as well as Levitra. He will follow up with us in six months for repeat PSA. Should he have any difficulties prior, he knowsto contact us. Thanks, as always, for involving us in his care. Yours sincerely, Signed by Terry Martinez MD 02/17/2008 13:04 Terry Martinez MD - Terry Martinez MD - CINTIA Job ID: [id number] Doc ID: [id number] cc: Clarissa Luther MD documented in this encounter Plan of Treatment Upcoming Encounters Date Type Department Care Team (Late st Contact Info) Description 03/24/2024 9:30 EST Appointment [facility] Endoscopy [address] [place] [address] Eleazar Ladd MD [address] [place] [address] [address] [place] [phone] 06/11/2024 11:30 EST Ancillary Procedure [facility] Urolog[address] [address] 06/11/2024 12:00 EST Office Visit [address] [phone] Terry Martinez MD [address] [place] [address], [address] [place] [phone] documented as of this encounter Visit Diagnoses Not on filedocumented in this encounter Care Teams Log Haul Chain Feeder Relationship Specialty Start Date End Date Clarissa Luther MD [address] [place] [phone] PCP - General 08/27/08 documented as of this encounter
--- OUTSIDE RECORDS SUMMARY | 2024-03-05 15:26 | XMS_ITS | Encounter Summary ---
Author Organization [facility] Address [address] [place] [address] Care Team Providers Care Outreach Director Name Role Phone Clarissa Luther MD Primary Care Provider [phone] Encounter Details Date Type Department Care Team (Late st Contact Info) Description 08/01/2007 Results Only [facility] - Maple conversion [address] [place], [place] [address] Gin Costa MD [address] [place] [id number] Social History Tobacco Use Types Packs/Day Years Used Date Smoking Tobacco: Never Assessed Sex and Gender Information Value Date Recorded Sex Assigned at Not on file Gender Identity Male 04/20/2020 13:39 EST Sexual Orientation Not on file documented as of this encounter Plan of Treatment Upcoming Encounters Date Type Department Care Team (Late st Contact Info) Description 03/24/2024 9:30 EST Appointment [facility] Endoscopy [address] [place], [place] [address] Eleazar Ladd MD [facility] [address] [place] [address] 06/11/2024 11:30 EST Ancillary Procedure [facility] Urolog[address] [id number] 06/11/2024 12:00 EST Office Visit [facility] [id number] Terry Martinez MD [address] [facility], [address] [place] [address] documented as of this encounter Procedures Procedure Name Priority Date/Time Associated Diagnosis Comments SURGICAL PATHOLOGY Routine 08/01/2007 0:00 EDT documented in this encounter Results * SURGICAL PATHOLOGY (08/01/2007 0:00 EDT) Pathology Report: SURGICAL PATHOLOGY REPORT Reports generated via electronic interface contain original data; however they are lacking the format of the original report. Caution should be taken when reading/interpreti ng unformatted reports. Name: ? ELLEN ARIAS V ? Accession #: ? [id number] ? : ? 1940 (Age: 66) ??M ? Collect Date: ? 08/01/2007 ? Location: ? [facility] ? Receive Date: ? 08/01/2007 ? Provider: GIN COSTA MD Copy to: [place] PATRICIO MD ? Final Pathologic Diagnosis: A. ?Prostate, right, needle core biopsy (five pieces) ([facility] P08-295 A D1, D2; 05/27/07): 1. ?Prostatic adenocarcinoma. ? - Estimated Wesson score 3+3=6. - Seen in one of five pieces (1/5). - Present in a single continuous focus. - Measuring 2.0 mm in linear length. - Involving 15% of involved piece (less than 5% of specimen). ?2. ?? Focal atrophy. B. ?? Prostate, left, needle core biopsy (six pieces) ([facility] P08-295 B D1, D2; 05/27/07): ?1. ?? Prostatic adenocarcinoma. ?- Estimated Wesson score 3+4=7. ?- Seen in one of six pieces (05/12). ?- Present in a single continuous focus. ?- Measuring 3.0 mm in linear length. ?- Involving 25% of involved piece (5% of specimen). Comment: ? Thank you for sharing this case with us. ??I agree with the presence of adenocarcinoma in both sides of prostate. ??The estimated Mitzy score for the left side seems to be 3+4=7. ??(Dr. Barron)/jose de jesus Document reviewed and electronically signed by: Denise Barron MD Report ??Date: 08/02/2007 10:38 By the signature above, the attending physician certifies that he/she has personally conducted a gross and/or microscopic examination of the described specimens and rendered or confirmed the above diagnosis. Specimen(s) Received: ? [facility] P08-[facility] (4) Clinical History: ? Elevated PSA Gross Description: ? Four slides are received for review from [facility], one each labelled P08-295 A D1, P08-295 A D2, P08-295 B D1, P08-295 B D2. ?? End of Report MARY MARSH 08/01/2007 08/01/2007 11: 50 EDT Gin Costa MD PATHOLOGY ORDERABLES Performing Organization Address City/State/[facility] Co de Phone Number MARY MARSH [address] [place] [address] documented in this encounter Visit Diagnoses Not on filedocumented in this encounter Care Teams Outreach Director Relationship Specialty Start Date End Date Clarissa Luther MD [address] [place] [phone] PCP - General 08/27/08 documented as of this encounter
--- OUTSIDE RECORDS SUMMARY | 2024-03-05 15:26 | XMS_ITS | Encounter Summary ---
Author Organization [facility] Address [address] [place] [address] Care Team Providers Care Sales Support Consultant Name Role Phone Unavailable Primary Care Provider Unavailabl e Encounter Details Date Type Department Care Team (Late st Contact Info) Description 08/06/2007 15:[address] [facility] [address] [place] [address] Amol Murphy MD [address] [place] [address] Social History Tobacco Use Types Packs/Day Years [...] 10:02 EDT documented as of this encounter Plan of Treatment Upcoming Encounters Date Type Department Care Team (Late st Contact Info) Description 03/24/2024 9:30 EST Appointment [facility] Endoscopy [address] [place] [address] Eleazar Ladd MD [facility] [address] [place] [address] 06/11/2024 11:30 EST Ancillary Procedure [facility] [address] [phone] 06/11/2024 12:00 EST Office Visit [address] [phone] Terry Martinez MD [address] [place] [address], [address] [place] [phone] documented as of this encounter Visit Diagnoses Not on filedocumented in this encounter
--- OUTSIDE RECORDS SUMMARY | 2024-03-05 15:26 | XMS_ITS | Encounter Summary ---
Author Organization [facility] Address [address] [place] [address] Care Team Providers Care Shearing Machine Feeder Name Role Phone Clarissa Luther MD Primary Care Provider [phone] Encounter Details Date Type Department Care Team (Late st Contact Info) Description 04/06/2009 15:59 EST - 04/06/2009 23:59 EST Hospital Encounter [facility] Radiation Oncology - [address] [address] Dank Perkins MD [address] [facility], [address] [place] [address] Discharge Disposition: Home or Self Care Social History Tobacco Use Types Packs/Day Years Used Date Smoking Tobacco: Never Assessed Sex and Gender Information Value Date Recorded Sex Assigned at Not on file Gender Identity Male 04/20/2020 13:39 EST Sexual Orientation Not on file documented as of this encounter Discharge Disposition Disposition Code Departure Means Destination Home or Self Penitentiary documented in this encounter Progress Notes * Prabha Perkins III, MD - 04/16/2009 0000 EST DIVISION OF RADIATION ONCOLOGY PROGRESS/FOLLOWUP NOTE - 04/16/2009 SITE, HISTOPATHOLOGY AND STAGE: T2a, PSA 7.2, [place] score 3 + 4 = 7 (intermediate risk) adenocarcinoma of the prostate. Status post prostate seed implant on 10/15/2007. INTERVAL HISTORY: Mr Schumacher returns today for routine followup. He continues to do well. He saw Dr Martinez last spring. He had a PSA done at [facility] in [facility] 03/25, it was 0.5. He has discontinued his Flomax and feels that he is urinating reasonably well. He has nocturia typically 3x per night, which is fairly stable for him. His urinary stream is fairly good. He has persistent erectile dysfunction. His bowel habits are normal. He has had no hematochezia. His appetite and energy are good. He has no localizing bone pain. DIRECTED EXAMINATION: Weight 193 pounds. General a very pleasant, cooperative man in no acute distress. HEENT unremarkable. Neck is supple without adenopathy. Back nontender to percussion. Lungs clear to auscultation. Heart regular rhythm. Rectal normal sphincter tone. The prostate is smooth, soft,without nodularity or evidence of disease. ASSESSMENT AND PLAN: Mr Schumacher is doing well now approximately 18 months after treatment with a good PSA and minimal treatment-related side effects. I will see him every 6 months with a PSA. He will contact me sooner should the need arise. Electronically Signed by Prabha Perkins III, MD 04/20/2009 16:47 H Asif Perkins III, MD - Asif Perkins III, MD - Job ID: Doc ID: [id number] Ext Doc ID: [id number] cc: MD Terry García MD Michael Zahm, MD documented in this encounter Plan of Treatment Upcoming Encounters Date Type Department Care Team (Late st Contact Info) Description 03/24/2024 9:30 EST Appointment [facility] Endoscopy [address] [place] [address] Eleazar Ladd MD [facility] [address] [place] [address] 06/11/2024 11:30 EST Ancillary Procedure [facility] [address]rolog[address] [phone] 06/11/2024 12:00 EST Office Visit [facility] Urology - [address] [place] [address] [place], [place] [address] Terry Martinez MD [address] [facility], [address] [place] [address] documented as of this encounter Visit Diagnoses Not on filedocumented in this encounter Care Teams Shearing Machine Feeder Relationship Specialty Start Date End Date Clarissa Luther MD [address] [place] [phone] PCP - General 08/27/08 documented as of this encounter
--- OUTSIDE RECORDS SUMMARY | 2024-03-05 15:26 | XMS_ITS | Encounter Summary ---
Author Organization [facility] Address [address] [place] [address] Care Team Providers Care Day Spa Manager Name Role Phone Unavailable Primary Care Provider Unavailabl e Encounter Details Date Type Department Care Team (Late st Contact Info) Description 04/06/2008 17:03 EST Hospital Encounter [address] [address] Dank Perkins MD [address] [place] [address], [address] [place] [address] Social History Tobacco Use Types [...] Contact Info) Description 03/24/2024 9:30 EST Appointment [facility] Endoscopy [address] [place] [address] Eleazar Ladd MD [facility] [address] [place] [phone] 06/11/2024 11:30 EST Ancillary Procedure [address] [id number] 06/11/2024 12:00 EST Office Visit [address] [phone] Terry Martinez MD [address] [place] [address], [address] [place] [address] documented as of this encounter Visit Diagnoses Not on filedocumented in this encounter
[2024-03-05 21:12] LABS: Anion Gap 7.4 mmol/L (3-11); BUN 53 mg/dL (7-18); CO2 27.6 mmol/L (21.0-32.0); CREATININE 2.5 mg/dL (0.70-1.30); Calcium 9.7 mg/dL (8.5-10.1); Chloride 107 mmol/L (98-107); Estimated GFR 25.18 (mL/min/1.73m2); Glucose 96 mg/dL (74-106); PHOSPHORUS 4.1 mg/dL (2.6-4.7); Potassium 5.2 mmol/L (3.5-5.1); Sodium 142 mmol/L (136-145)
== END 2024-03-05 15:19 | disposition home or self-care (01) ==
LOC: NCHCN 15:18
PROVIDERS: PCP Family Medicine; Visit Provider Family Medicine
DX: N18.9 Chronic kidney disease, unspecified (principal)
CPT/HCPCS: 80048; 84100

== ENCOUNTER 2024-04-22 13:47 | Outpatient (REF) | payer MEDICARE, SELFPAY ==
[2024-04-22 16:09] LABS: BUN 51 mg/dL (7-18); CREATININE 2.7 mg/dL (0.70-1.30); Calcium 9.1 mg/dL (8.5-10.1); Chloride 109 mmol/L (98-107); Estimated GFR 22.96 (mL/min/1.73m2); Glucose 126 mg/dL (74-106); Potassium 4.4 mmol/L (3.5-5.1); Sodium 145 mmol/L (136-145)
[2024-04-22 23:02] LABS: PSA, Diagnostic 6.7 ng/mL (<=6.5)
== END 2024-04-22 13:48 | disposition home or self-care (01) ==
LOC: NCHCN 13:47
PROVIDERS: PCP Family Medicine; Visit Provider Family Medicine
DX: C61 Malignant neoplasm of prostate (principal)
CPT/HCPCS: 80048; 84153

== ENCOUNTER 2025-03-19 16:46 | Outpatient (REF) | payer MEDICARE, SELFPAY ==
[2025-03-20 18:06] LABS: PSA, Diagnostic 9.0 ng/mL (<=6.5)
== END 2025-03-19 16:47 | disposition home or self-care (01) ==
LOC: LBN 16:46
PROVIDERS: PCP Family Medicine; Visit Provider Urology
DX: C61 Malignant neoplasm of prostate (principal)
CPT/HCPCS: 84153